=== PATIENT | male | born 1940 | race Caucasian/White ===

== ENCOUNTER → 2017-03-17 | Outpatient (REF) | payer OTHER ==
[2017-03-17 17:36] LABS: INR 1.07; PROTHROMBIN TIME 14.1 SECONDS (12.4-14.5)
== END ==
LOC: M LAB REF 16:43
DX: R91.8 Other nonspecific abnormal finding of lung field (principal); Z79.01 Long term (current) use of anticoagulants
CPT/HCPCS: 85610

== ENCOUNTER → 2017-04-02 | Outpatient (CLI) | payer OTHER ==
[~2017-04-02] MED LIST: LIDOCAINE 1% MDV 20ML VIAL As Ordered
== END ==
LOC: M RADPRO 09:03
DX: R91.8 Other nonspecific abnormal finding of lung field (principal); C34.90 Malignant neoplasm of unspecified part of unspecified bronchus or lung; Z98.1 Arthrodesis status; Z79.899 Other long term (current) drug therapy; Z79.82 Long term (current) use of aspirin
CPT/HCPCS: 32405

== ENCOUNTER → 2017-04-08 | Outpatient (CLI) | payer OTHER | LOC: M PLARAD 12:02 | DX: C34.12 Malignant neoplasm of upper lobe, left bronchus or lung (principal) | CPT/HCPCS: 78815 ==

== ENCOUNTER → 2017-05-05 | Outpatient (CLI) | payer OTHER ==
[2017-05-05 11:12] LABS: HEMATOCRIT 40.1 % (42.0-52.0); HEMOGLOBIN 13.4 g/dl (14.0-18.0); MEAN CORPUSCULAR HEMOGLOBIN 29.8 pg (27.0-33.0); MEAN CORPUSCULAR HGB CONC 33.4 g/dl (32.0-36.5); MEAN CORPUSCULAR VOLUME 89.3 fl (80.0-96.0); PLATELET COUNT, AUTOMATED 195 10^3/uL (150-450); RED BLOOD COUNT 4.49 10^6/uL (4.30-6.10); RED CELL DISTRIBUTION WIDTH 13.2 % (11.5-14.5); WHITE BLOOD COUNT 8.4 10^3/uL (4.0-10.0)
[2017-05-05 11:22] LABS: ABG BASE EXCESS 3.3 (-2.0-2.0); ABG DEVICE ROOM AIR; ABG HCO3 27.1 MEQ/L (22.0-26.0); ABG PARTIAL PRESSURE CO2 38.3 mmHg (35.0-45.0); ABG STANDARD HCO3 27.3 MEQ/L (22.0-26.0); ABG TOTAL CO2 28.2 MEQ/L (23.0-31.0); ABG pH (ARTERIAL) 7.467 UNITS (7.350-7.450); APPEARANCE, URINE CLEAR (CLEAR); BACTERIA, URINE AUTO NEGATIVE (NEGATIVE); BILIRUBIN, URINE AUTO NEGATIVE (NEGATIVE); BLOOD, URINE BLOOD NEGATIVE (NEGATIVE); COLOR, URINE YELLOW (YELLOW); GLUCOSE, URINE (UA) AUTO NEGATIVE (NEGATIVE); KETONE, URINE AUTO NEGATIVE (NEGATIVE); LEUKOCYTE ESTERASE, URINE AUTO NEGATIVE (NEGATIVE); NITRITE, URINE AUTO NEGATIVE (NEGATIVE); PROTEIN, URINE AUTO NEGATIVE (NEGATIVE); RBC, URINE AUTO 4 /HPF (0-3); SQUAMOUS EPITHELIAL CELL UR AU 0 /HPF (0-6); UROBILINOGEN, URINE AUTO 0.2 mg/dL (0.0-2.0); WBC, URINE AUTO 4 /HPF (0-3)
[2017-05-05 11:24] LABS: INR 0.94; PROTHROMBIN TIME 12.6 SECONDS (12.4-14.5)
[2017-05-05 11:25] LABS: PARTIAL THROMBOPLASTIN TIME 30.5 SECONDS (26.8-37.9)
[2017-05-05 11:37] LABS: ANION GAP 7 MEQ/L (8-16); BLOOD UREA NITROGEN 16 MG/DL (7-18); CALCIUM LEVEL 8.9 MG/DL (8.8-10.2); CARBON DIOXIDE LEVEL 32 MEQ/L (21-32); CHLORIDE LEVEL 97 MEQ/L (98-107); CREATININE FOR GFR 0.97 MG/DL (0.70-1.30); GLOMERULAR FILTRATION RATE > 60.0 (>42); GLUCOSE, FASTING 128 MG/DL (70-100); POTASSIUM SERUM 4.1 MEQ/L (3.5-5.1); SODIUM LEVEL 136 MEQ/L (136-145)
[2017-05-05 12:17] LABS: SPECIFIC GRAVITY URINE AUTO >1.060 (1.002-1.035)
== END ==
LOC: M ADMPAT 07:51
DX: C34.12 Malignant neoplasm of upper lobe, left bronchus or lung (principal); R91.8 Other nonspecific abnormal finding of lung field

== ENCOUNTER → 2017-05-05 | Outpatient (CLI) | payer OTHER ==
[~2017-05-05] MED LIST changes: +ISOVUE-370 76% 100ML VIAL (Q9967) As Ordered; -LIDOCAINE 1% MDV 20ML VIAL As Ordered
[2017-05-05 07:28] LABS: CREATININE FOR GFR 0.91 MG/DL (0.70-1.30); GLOMERULAR FILTRATION RATE > 60.0 (>42)
[2017-05-05 07:28] LABS: BLOOD UREA NITROGEN 17 MG/DL (7-18)
== END ==
LOC: M LAB 06:29
DX: C34.12 Malignant neoplasm of upper lobe, left bronchus or lung (principal); J43.1 Panlobular emphysema; E27.9 Disorder of adrenal gland, unspecified; R91.8 Other nonspecific abnormal finding of lung field
CPT/HCPCS: Q9967

== ENCOUNTER 2017-05-12 05:48 | Inpatient (IN) | payer OTHER ==
[2017-05-12] MEDS ORDERED: fentaNYL 100 MCG/2 ML INJECTION (J3010) As Ordered ×3 (06:43→12:33)
[2017-05-12] MEDS ORDERED: MIDAZOLAM INJ 2 MG/2 ML VIAL (J2250) As Ordered ×2 (06:43→06:58)
[2017-05-12] MEDS: LR 1,000 ML IV (06:44)
[2017-05-12] MEDS ORDERED: LIDOCAINE 2% INJ 100 MG/5 ML SDV (FOR ANES.) As Ordered (07:00)
[2017-05-12] MEDS ORDERED: PROPOFOL 200 MG/20 ML VIAL As Ordered (07:00)
[2017-05-12] MEDS ORDERED: ROCURONIUM BROMIDE 50 MG/5 ML VIAL As Ordered ×3 (07:01→11:01)
[2017-05-12] MEDS: fentaNYL 100 MCG/2 ML INJECTION (J3010) IV ×2 (07:13→14:01)
[2017-05-12] MEDS: MIDAZOLAM INJ 2 MG/2 ML VIAL (J2250) IV (07:45)
[2017-05-12] MEDS: CETACAINE SPRAY 5GM As Ordered (07:51)
[2017-05-12] MEDS: MUPIROCIN 2% OINT 22 GM TUBE TOP (07:54)
[2017-05-12] MEDS ORDERED: GLYCOPYRROLATE INJ 0.2 MG/ML 2 ML VIAL As Ordered (08:03)
[2017-05-12] MEDS ORDERED: HYDROCORTISONE 100 MG/2 ML VIAL (J1720) As Ordered (08:12)
[2017-05-12] MEDS ORDERED: BUPIVACAINE HCL 0.25% 30 ML VIAL As Ordered (08:32)
[2017-05-12] MEDS ORDERED: ePHEDrine SULFATE 25 MG/5 ML(5MG/ML) SYRINGE As Ordered ×4 (08:53→12:43)
[2017-05-12] MEDS ORDERED: PHENYLephrine HCL 500 MCG/5 ML (100MCG/ML) SYRINGE (J2370) As Ordered ×2 (08:53→12:48)
[2017-05-12] MEDS: MOM 30ML SUSPENSION UDC PO (09:00)
[2017-05-12] MEDS: predniSONE 20 MG TAB PO (09:00)
[2017-05-12] MEDS ORDERED: ONDANSETRON 4MG/2ML VIAL (J2405) As Ordered (09:01)
[2017-05-12] MEDS ORDERED: NALOXONE INJ 0.4 MG/1 ML VIAL (J2310) IV (10:00)
[2017-05-12] MEDS ORDERED: ONDANSETRON 4MG/2ML VIAL (J2405) IV ×2 (10:00→13:15)
[2017-05-12] MEDS: BUPIVACAINE/NACL BAG 250 ML EPIDURAL (10:00)
[2017-05-12] MEDS ORDERED: EPIDURAL/PCA KEYS XX (10:00)
[2017-05-12] MEDS ORDERED: diphenhydrAMINE INJ 50MG/ML VIAL (J1200) IV (10:00)
[2017-05-12] MEDS ORDERED: WALLBOXKEY XX (10:00)
[2017-05-12] MEDS ORDERED: SUGAMMADEX SODIUM 500 MG/5 ML VIAL (BRIDION) As Ordered (12:04)
[2017-05-12] MEDS ORDERED: KETOROLAC 60 MG/2 ML VIAL (J1885) As Ordered (12:25)
[2017-05-12] MEDS: BUPIVACAINE HCL 0.5% 10 ML VIAL As Ordered (12:41)
[2017-05-12] MEDS: BUPIVACAINE LIPOSOME/PF 1.3% 20 ML VIAL (13.3MG/ML)(EXPAREL) As Ordered (12:41)
[2017-05-12] MEDS: ceFAZolin 2 GM/D5W 50 ML IV BAG (J0690 PER 500MG) As Ordered (12:44)
[2017-05-12] MEDS ORDERED: BISACODYL 10 MG SUPP PR (13:15)
[2017-05-12] MEDS ORDERED: LEVALBUTEROL 1.25 MG/0.5 ML CONCENTRATE NEB NEB (13:15)
[2017-05-12] MEDS ORDERED: PERCOCET 5MG/325MG TAB PO (13:15)
[2017-05-12] MEDS ORDERED: ACETAMINOPHEN TAB 650MG DOSE (2X325MG) PO (13:15)
[2017-05-12] MEDS: LEVALBUTEROL 1.25 MG/0.5 ML CONCENTRATE NEB NEB ×2 (13:42→20:14)
[2017-05-12 13:48] LABS: BASO % 0.1 % (0.0-1.0); EOS % 0.2 % (0.0-3.0); HEMATOCRIT 33.5 % (42.0-52.0); HEMOGLOBIN 11.1 g/dl (14.0-18.0); IMMATURE GRANULOCYTE % 0.8 % (0-3.0); LYMPH # 0.9 10^3/uL (1.5-4.5); LYMPH % 5.8 % (24.0-44.0); MEAN CORPUSCULAR HEMOGLOBIN 29.9 pg (27.0-33.0); MEAN CORPUSCULAR HGB CONC 33.1 g/dl (32.0-36.5); MEAN CORPUSCULAR VOLUME 90.3 fl (80.0-96.0); MONO # 0.8 10^3/uL (0.0-0.8); NEUTROPHILS # 13.1 10^3/uL (1.8-7.7); NEUTROPHILS % 88.1 % (36.0-66.0); PLATELET COUNT, AUTOMATED 200 10^3/uL (150-450); RED BLOOD COUNT 3.71 10^6/uL (4.30-6.10); RED CELL DISTRIBUTION WIDTH 13.2 % (11.5-14.5); WHITE BLOOD COUNT 14.9 10^3/uL (4.0-10.0)
[2017-05-12 13:50] LABS: ABG BASE EXCESS 0.4 (-2.0-2.0); ABG HCO3 26.3 MEQ/L (22.0-26.0); ABG O2 SATURATION 98.4 % (95.0-99.0); ABG PARTIAL PRESSURE CO2 47.1 mmHg (35.0-45.0); ABG PARTIAL PRESSURE O2 125.3 mmHg (75.0-100.0); ABG STANDARD HCO3 24.9 MEQ/L (22.0-26.0); ABG TOTAL CO2 27.7 MEQ/L (23.0-31.0); ABG pH (ARTERIAL) 7.364 UNITS (7.350-7.450)
[2017-05-12] MEDS: ONDANSETRON 4MG/2ML VIAL (J2405) IV (14:01)
[2017-05-12 14:19] LABS: ANION GAP 9 MEQ/L (8-16); BLOOD UREA NITROGEN 13 MG/DL (7-18); CALCIUM LEVEL 7.9 MG/DL (8.8-10.2); CARBON DIOXIDE LEVEL 26 MEQ/L (21-32); CHLORIDE LEVEL 103 MEQ/L (98-107); CREATININE FOR GFR 1.03 MG/DL (0.70-1.30); GLOMERULAR FILTRATION RATE > 60.0 (>42); GLUCOSE, FASTING 258 MG/DL (70-100); POTASSIUM SERUM 4.3 MEQ/L (3.5-5.1); SODIUM LEVEL 138 MEQ/L (136-145)
[2017-05-12] MEDS: KCL 20MEQ IN D5/NS 1000ML 1,000 ML IV (15:00)
[2017-05-12] MEDS: CEFAZOLIN SOD 1 GM in APPROPRIATE DILUENT 1 EA IV (16:46)
[2017-05-12] MEDS: PYRIDOSTIGMINE 60 MG TAB PO ×2 (17:56→21:07)
[2017-05-12] MEDS: KETOROLAC 30 MG/ML VIAL (J1885) IV (18:11)
[2017-05-12] MEDS ORDERED: predniSONE 20 MG TAB PO (21:00)
[2017-05-12] MEDS ORDERED: PYRIDOSTIGMINE 60 MG TAB PO (21:00)
[2017-05-12] MEDS: DOCUSATE SODIUM 100 MG CAP PO (21:06)
[2017-05-12] MEDS: HEPARIN SOD (PORCINE) 5000 UNITS/ML VIAL SC (21:08)
[2017-05-12] MEDS: IRBESARTAN 150 MG TAB PO (21:08)
[2017-05-13] MEDS: CEFAZOLIN SOD 1 GM in APPROPRIATE DILUENT 1 EA IV ×4 (00:52→23:38)
[2017-05-13] MEDS: KETOROLAC 30 MG/ML VIAL (J1885) IV ×4 (00:53→18:36)
[2017-05-13] MEDS: LEVALBUTEROL 1.25 MG/0.5 ML CONCENTRATE NEB NEB ×4 (01:13→20:02)
[2017-05-13] MEDS: KCL 20MEQ IN D5/NS 1000ML 1,000 ML IV (03:16)
[2017-05-13 06:04] LABS: ABG BASE EXCESS 0.7 (-2.0-2.0); ABG HCO3 24.5 MEQ/L (22.0-26.0); ABG O2 SATURATION 98.9 % (95.0-99.0); ABG PARTIAL PRESSURE CO2 36.5 mmHg (35.0-45.0); ABG PARTIAL PRESSURE O2 135.3 mmHg (75.0-100.0); ABG STANDARD HCO3 25.1 MEQ/L (22.0-26.0); ABG TOTAL CO2 25.6 MEQ/L (23.0-31.0); ABG pH (ARTERIAL) 7.445 UNITS (7.350-7.450)
[2017-05-13 06:14] LABS: BASO % 0.1 % (0.0-1.0); EOS # 0.1 10^3/uL (0.0-0.50); EOS % 0.5 % (0.0-3.0); HEMATOCRIT 31.6 % (42.0-52.0); HEMOGLOBIN 10.6 g/dl (14.0-18.0); IMMATURE GRANULOCYTE % 1.2 % (0-3.0); LYMPH # 1.2 10^3/uL (1.5-4.5); LYMPH % 10.9 % (24.0-44.0); MEAN CORPUSCULAR HEMOGLOBIN 30.5 pg (27.0-33.0); MEAN CORPUSCULAR HGB CONC 33.5 g/dl (32.0-36.5); MEAN CORPUSCULAR VOLUME 91.1 fl (80.0-96.0); MONO # 0.9 10^3/uL (0.0-0.8); MONO % 8.4 % (0.0-5.0); NEUTROPHILS # 8.5 10^3/uL (1.8-7.7); NEUTROPHILS % 78.9 % (36.0-66.0); PLATELET COUNT, AUTOMATED 202 10^3/uL (150-450); RED BLOOD COUNT 3.47 10^6/uL (4.30-6.10); RED CELL DISTRIBUTION WIDTH 13.9 % (11.5-14.5); WHITE BLOOD COUNT 10.7 10^3/uL (4.0-10.0)
[2017-05-13 06:35] LABS: ANION GAP 11 MEQ/L (8-16); BLOOD UREA NITROGEN 12 MG/DL (7-18); CALCIUM LEVEL 7.7 MG/DL (8.8-10.2); CARBON DIOXIDE LEVEL 26 MEQ/L (21-32); CHLORIDE LEVEL 104 MEQ/L (98-107); CREATININE FOR GFR 0.95 MG/DL (0.70-1.30); GLOMERULAR FILTRATION RATE > 60.0 (>42); GLUCOSE, FASTING 199 MG/DL (70-100); POTASSIUM SERUM 4.4 MEQ/L (3.5-5.1); SODIUM LEVEL 141 MEQ/L (136-145)
[2017-05-13] MEDS: MOM 30ML SUSPENSION UDC PO (08:11)
[2017-05-13] MEDS: PYRIDOSTIGMINE 60 MG TAB PO ×4 (08:11→21:30)
[2017-05-13] MEDS: TERAZOSIN 5 MG CAP PO (08:11)
[2017-05-13] MEDS: predniSONE 20 MG TAB PO (08:12)
[2017-05-13] MEDS: VITAMIN D 1,000 INTERNATIONAL UNITS TABLET PO (08:12)
[2017-05-13] MEDS: FAMOTIDINE 20 MG TAB PO (08:12)
[2017-05-13] MEDS: DOCUSATE SODIUM 100 MG CAP PO ×2 (08:12→21:30)
[2017-05-13] MEDS: ASPIRIN 81 MG ENTERIC TAB PO (08:12)
[2017-05-13] MEDS: ATENOLOL 25 MG TAB PO (08:13)
[2017-05-13] MEDS: HEPARIN SOD (PORCINE) 5000 UNITS/ML VIAL SC ×2 (08:14→21:30)
[2017-05-13] MEDS: BUPIVACAINE/NACL BAG 250 ML EPIDURAL (12:00)
[2017-05-13] MEDS: IRBESARTAN 150 MG TAB PO (21:30)
[2017-05-14] MEDS: KETOROLAC 30 MG/ML VIAL (J1885) IV ×4 (00:38→18:25)
[2017-05-14] MEDS: LEVALBUTEROL 1.25 MG/0.5 ML CONCENTRATE NEB NEB ×4 (01:52→19:52)
[2017-05-14 04:55] LABS: BASO % 0.1 % (0.0-1.0); EOS # 0.1 10^3/uL (0.0-0.50); EOS % 0.4 % (0.0-3.0); HEMATOCRIT 30.8 % (42.0-52.0); HEMOGLOBIN 10.1 g/dl (14.0-18.0); IMMATURE GRANULOCYTE % 1.1 % (0-3.0); LYMPH # 1.2 10^3/uL (1.5-4.5); LYMPH % 10.4 % (24.0-44.0); MEAN CORPUSCULAR HEMOGLOBIN 29.7 pg (27.0-33.0); MEAN CORPUSCULAR HGB CONC 32.8 g/dl (32.0-36.5); MEAN CORPUSCULAR VOLUME 90.6 fl (80.0-96.0); MONO # 0.9 10^3/uL (0.0-0.8); MONO % 7.8 % (0.0-5.0); NEUTROPHILS # 9.4 10^3/uL (1.8-7.7); NEUTROPHILS % 80.2 % (36.0-66.0); PLATELET COUNT, AUTOMATED 201 10^3/uL (150-450); RED CELL DISTRIBUTION WIDTH 13.7 % (11.5-14.5); WHITE BLOOD COUNT 11.8 10^3/uL (4.0-10.0)
[2017-05-14 05:19] LABS: ANION GAP 6 MEQ/L (8-16); BLOOD UREA NITROGEN 17 MG/DL (7-18); CALCIUM LEVEL 7.9 MG/DL (8.8-10.2); CARBON DIOXIDE LEVEL 29 MEQ/L (21-32); CHLORIDE LEVEL 107 MEQ/L (98-107); CREATININE FOR GFR 0.81 MG/DL (0.70-1.30); GLOMERULAR FILTRATION RATE > 60.0 (>42); GLUCOSE, FASTING 169 MG/DL (70-100); POTASSIUM SERUM 3.9 MEQ/L (3.5-5.1); SODIUM LEVEL 142 MEQ/L (136-145)
[2017-05-14] MEDS: CEFAZOLIN SOD 1 GM in APPROPRIATE DILUENT 1 EA IV (07:27)
[2017-05-14] MEDS: MOM 30ML SUSPENSION UDC PO (08:08)
[2017-05-14] MEDS: FAMOTIDINE 20 MG TAB PO (08:08)
[2017-05-14] MEDS: HEPARIN SOD (PORCINE) 5000 UNITS/ML VIAL SC ×2 (08:08→20:18)
[2017-05-14] MEDS: ASPIRIN 81 MG ENTERIC TAB PO (08:08)
[2017-05-14] MEDS: PYRIDOSTIGMINE 60 MG TAB PO ×4 (08:08→20:17)
[2017-05-14] MEDS: predniSONE 20 MG TAB PO (08:08)
[2017-05-14] MEDS: VITAMIN D 1,000 INTERNATIONAL UNITS TABLET PO (08:09)
[2017-05-14] MEDS: ATENOLOL 25 MG TAB PO (08:09)
[2017-05-14] MEDS: DOCUSATE SODIUM 100 MG CAP PO ×2 (08:09→20:17)
[2017-05-14] MEDS: TERAZOSIN 5 MG CAP PO (09:00)
[2017-05-14] MEDS: BUPIVACAINE/NACL BAG 250 ML EPIDURAL (12:00)
[2017-05-14] MEDS: PNEUMOCOCCAL VACCINE 0.5ML SYRINGE(90732) PNEUMOVAX 23 IM (16:41)
[2017-05-14] MEDS: IRBESARTAN 150 MG TAB PO (20:17)
[2017-05-15] MEDS: KETOROLAC 30 MG/ML VIAL (J1885) IV ×4 (00:24→18:28)
[2017-05-15] MEDS: LEVALBUTEROL 1.25 MG/0.5 ML CONCENTRATE NEB NEB ×4 (02:12→20:25)
[2017-05-15 04:49] LABS: BASO % 0.2 % (0.0-1.0); EOS # 0.2 10^3/uL (0.0-0.50); EOS % 1.7 % (0.0-3.0); HEMATOCRIT 29.9 % (42.0-52.0); HEMOGLOBIN 9.9 g/dl (14.0-18.0); IMMATURE GRANULOCYTE % 0.9 % (0-3.0); LYMPH # 2.1 10^3/uL (1.5-4.5); LYMPH % 18.8 % (24.0-44.0); MEAN CORPUSCULAR HEMOGLOBIN 30.5 pg (27.0-33.0); MEAN CORPUSCULAR HGB CONC 33.1 g/dl (32.0-36.5); MONO # 0.9 10^3/uL (0.0-0.8); MONO % 7.8 % (0.0-5.0); NEUTROPHILS # 7.9 10^3/uL (1.8-7.7); NEUTROPHILS % 70.6 % (36.0-66.0); PLATELET COUNT, AUTOMATED 184 10^3/uL (150-450); RED BLOOD COUNT 3.25 10^6/uL (4.30-6.10); RED CELL DISTRIBUTION WIDTH 13.4 % (11.5-14.5); WHITE BLOOD COUNT 11.2 10^3/uL (4.0-10.0)
[2017-05-15 05:10] LABS: ANION GAP 3 MEQ/L (8-16); BLOOD UREA NITROGEN 20 MG/DL (7-18); CALCIUM LEVEL 8.1 MG/DL (8.8-10.2); CARBON DIOXIDE LEVEL 31 MEQ/L (21-32); CHLORIDE LEVEL 106 MEQ/L (98-107); CREATININE FOR GFR 0.94 MG/DL (0.70-1.30); GLOMERULAR FILTRATION RATE > 60.0 (>42); GLUCOSE, FASTING 134 MG/DL (70-100); POTASSIUM SERUM 4.8 MEQ/L (3.5-5.1); SODIUM LEVEL 140 MEQ/L (136-145)
[2017-05-15] MEDS: ASPIRIN 81 MG ENTERIC TAB PO (09:30)
[2017-05-15] MEDS: FUROSEMIDE 40 MG/4 ML VIAL (J1940) IV (09:30)
[2017-05-15] MEDS: predniSONE 20 MG TAB PO (09:30)
[2017-05-15] MEDS: HEPARIN SOD (PORCINE) 5000 UNITS/ML VIAL SC ×2 (09:30→22:22)
[2017-05-15] MEDS: PYRIDOSTIGMINE 60 MG TAB PO ×4 (09:30→22:22)
[2017-05-15] MEDS: FAMOTIDINE 20 MG TAB PO (09:30)
[2017-05-15] MEDS: VITAMIN D 1,000 INTERNATIONAL UNITS TABLET PO (09:31)
[2017-05-15] MEDS: TERAZOSIN 5 MG CAP PO (09:31)
[2017-05-15] MEDS: ATENOLOL 25 MG TAB PO (09:31)
[2017-05-15] MEDS: MOM 30ML SUSPENSION UDC PO (09:40)
[2017-05-15] MEDS: DOCUSATE SODIUM 100 MG CAP PO ×2 (09:40→22:20)
[2017-05-15] MEDS: BUPIVACAINE/NACL BAG 250 ML EPIDURAL (12:01)
[2017-05-15] MEDS: IRBESARTAN 150 MG TAB PO (22:22)
[2017-05-16] MEDS: KETOROLAC 30 MG/ML VIAL (J1885) IV ×4 (00:08→18:34)
[2017-05-16] MEDS: LEVALBUTEROL 1.25 MG/0.5 ML CONCENTRATE NEB NEB ×4 (02:22→18:12)
[2017-05-16 04:33] LABS: BASO % 0.2 % (0.0-1.0); EOS # 0.2 10^3/uL (0.0-0.50); EOS % 1.5 % (0.0-3.0); HEMATOCRIT 32.1 % (42.0-52.0); HEMOGLOBIN 10.6 g/dl (14.0-18.0); IMMATURE GRANULOCYTE % 1.4 % (0-3.0); LYMPH # 0.9 10^3/uL (1.5-4.5); LYMPH % 9.1 % (24.0-44.0); MEAN CORPUSCULAR HEMOGLOBIN 29.8 pg (27.0-33.0); MEAN CORPUSCULAR VOLUME 90.2 fl (80.0-96.0); MONO # 0.8 10^3/uL (0.0-0.8); MONO % 7.5 % (0.0-5.0); NEUTROPHILS # 8.3 10^3/uL (1.8-7.7); NEUTROPHILS % 80.3 % (36.0-66.0); PLATELET COUNT, AUTOMATED 228 10^3/uL (150-450); RED BLOOD COUNT 3.56 10^6/uL (4.30-6.10); RED CELL DISTRIBUTION WIDTH 13.5 % (11.5-14.5); WHITE BLOOD COUNT 10.4 10^3/uL (4.0-10.0)
[2017-05-16 04:57] LABS: ANION GAP 7 MEQ/L (8-16); BLOOD UREA NITROGEN 26 MG/DL (7-18); CALCIUM LEVEL 8.2 MG/DL (8.8-10.2); CARBON DIOXIDE LEVEL 29 MEQ/L (21-32); CHLORIDE LEVEL 104 MEQ/L (98-107); CREATININE FOR GFR 0.94 MG/DL (0.70-1.30); GLOMERULAR FILTRATION RATE > 60.0 (>42); GLUCOSE, FASTING 168 MG/DL (70-100); POTASSIUM SERUM 3.9 MEQ/L (3.5-5.1); SODIUM LEVEL 140 MEQ/L (136-145)
[2017-05-16] MEDS: DOCUSATE SODIUM 100 MG CAP PO ×2 (08:44→19:55)
[2017-05-16] MEDS: MOM 30ML SUSPENSION UDC PO (08:44)
[2017-05-16] MEDS: predniSONE 20 MG TAB PO (08:53)
[2017-05-16] MEDS: FAMOTIDINE 20 MG TAB PO (08:53)
[2017-05-16] MEDS: ASPIRIN 81 MG ENTERIC TAB PO (08:53)
[2017-05-16] MEDS: ATENOLOL 25 MG TAB PO (08:53)
[2017-05-16] MEDS: VITAMIN D 1,000 INTERNATIONAL UNITS TABLET PO (08:53)
[2017-05-16] MEDS: HEPARIN SOD (PORCINE) 5000 UNITS/ML VIAL SC ×2 (08:53→19:56)
[2017-05-16] MEDS: PYRIDOSTIGMINE 60 MG TAB PO ×4 (08:53→19:55)
[2017-05-16] MEDS: TERAZOSIN 5 MG CAP PO (08:54)
[2017-05-16] MEDS: METOCLOPRAMIDE INJ 10MG/2ML VIAL (J2765) IV (09:14)
[2017-05-16] MEDS: BUPIVACAINE/NACL BAG 250 ML EPIDURAL (11:38)
[2017-05-16] MEDS: FUROSEMIDE 40 MG/4 ML VIAL (J1940) IV (11:41)
[2017-05-16] MEDS: IRBESARTAN 150 MG TAB PO ×2 (19:56→20:00)
[2017-05-17] MEDS: LEVALBUTEROL 1.25 MG/0.5 ML CONCENTRATE NEB NEB ×4 (02:00→18:21)
[2017-05-17] MEDS: KETOROLAC 30 MG/ML VIAL (J1885) IV ×3 (02:13→14:07)
[2017-05-17 04:35] LABS: BASO % 0.1 % (0.0-1.0); EOS # 0.1 10^3/uL (0.0-0.50); EOS % 1.3 % (0.0-3.0); HEMATOCRIT 32.9 % (42.0-52.0); HEMOGLOBIN 10.9 g/dl (14.0-18.0); IMMATURE GRANULOCYTE % 1.4 % (0-3.0); LYMPH # 1.2 10^3/uL (1.5-4.5); LYMPH % 11.9 % (24.0-44.0); MEAN CORPUSCULAR HEMOGLOBIN 29.5 pg (27.0-33.0); MEAN CORPUSCULAR HGB CONC 33.1 g/dl (32.0-36.5); MEAN CORPUSCULAR VOLUME 89.2 fl (80.0-96.0); MONO % 9.9 % (0.0-5.0); NEUTROPHILS # 7.3 10^3/uL (1.8-7.7); NEUTROPHILS % 75.4 % (36.0-66.0); PLATELET COUNT, AUTOMATED 249 10^3/uL (150-450); RED BLOOD COUNT 3.69 10^6/uL (4.30-6.10); RED CELL DISTRIBUTION WIDTH 13.5 % (11.5-14.5); WHITE BLOOD COUNT 9.7 10^3/uL (4.0-10.0)
[2017-05-17 04:58] LABS: ANION GAP 6 MEQ/L (8-16); BLOOD UREA NITROGEN 30 MG/DL (7-18); CARBON DIOXIDE LEVEL 28 MEQ/L (21-32); CHLORIDE LEVEL 104 MEQ/L (98-107); GLOMERULAR FILTRATION RATE > 60.0 (>42); GLUCOSE, FASTING 115 MG/DL (70-100); POTASSIUM SERUM 4.1 MEQ/L (3.5-5.1); SODIUM LEVEL 138 MEQ/L (136-145)
[2017-05-17 04:59] LABS: CALCIUM LEVEL 8.1 MG/DL (8.8-10.2)
[2017-05-17] MEDS: DOCUSATE SODIUM 100 MG CAP PO ×2 (09:00→20:52)
[2017-05-17] MEDS: MOM 30ML SUSPENSION UDC PO (09:00)
[2017-05-17] MEDS: HEPARIN SOD (PORCINE) 5000 UNITS/ML VIAL SC ×2 (10:11→20:53)
[2017-05-17] MEDS: ATENOLOL 25 MG TAB PO (10:12)
[2017-05-17] MEDS: ASPIRIN 81 MG ENTERIC TAB PO (10:12)
[2017-05-17] MEDS: FAMOTIDINE 20 MG TAB PO (10:12)
[2017-05-17] MEDS: predniSONE 20 MG TAB PO (10:12)
[2017-05-17] MEDS: TERAZOSIN 5 MG CAP PO (10:12)
[2017-05-17] MEDS: VITAMIN D 1,000 INTERNATIONAL UNITS TABLET PO (10:12)
[2017-05-17] MEDS: PYRIDOSTIGMINE 60 MG TAB PO ×4 (10:13→20:53)
[2017-05-17] MEDS: BUPIVACAINE/NACL BAG 250 ML EPIDURAL (12:25)
[2017-05-17] MEDS: METHOTREXATE 2.5 MG PO (16:26)
[2017-05-17] MEDS: IRBESARTAN 150 MG TAB PO (20:52)
[2017-05-18] MEDS: LEVALBUTEROL 1.25 MG/0.5 ML CONCENTRATE NEB NEB ×4 (02:00→19:31)
[2017-05-18 03:58] LABS: BASO % 0.1 % (0.0-1.0); EOS # 0.1 10^3/uL (0.0-0.50); EOS % 0.9 % (0.0-3.0); HEMATOCRIT 31.4 % (42.0-52.0); HEMOGLOBIN 10.5 g/dl (14.0-18.0); IMMATURE GRANULOCYTE % 1.7 % (0-3.0); LYMPH # 1.5 10^3/uL (1.5-4.5); LYMPH % 12.8 % (24.0-44.0); MEAN CORPUSCULAR HEMOGLOBIN 29.9 pg (27.0-33.0); MEAN CORPUSCULAR HGB CONC 33.4 g/dl (32.0-36.5); MEAN CORPUSCULAR VOLUME 89.5 fl (80.0-96.0); MONO % 8.7 % (0.0-5.0); NEUTROPHILS # 8.9 10^3/uL (1.8-7.7); NEUTROPHILS % 75.8 % (36.0-66.0); PLATELET COUNT, AUTOMATED 260 10^3/uL (150-450); RED BLOOD COUNT 3.51 10^6/uL (4.30-6.10); RED CELL DISTRIBUTION WIDTH 13.5 % (11.5-14.5); WHITE BLOOD COUNT 11.7 10^3/uL (4.0-10.0)
[2017-05-18 04:23] LABS: ANION GAP 7 MEQ/L (8-16); BLOOD UREA NITROGEN 24 MG/DL (7-18); CALCIUM LEVEL 8.1 MG/DL (8.8-10.2); CARBON DIOXIDE LEVEL 26 MEQ/L (21-32); CHLORIDE LEVEL 107 MEQ/L (98-107); CREATININE FOR GFR 0.78 MG/DL (0.70-1.30); GLOMERULAR FILTRATION RATE > 60.0 (>42); GLUCOSE, FASTING 142 MG/DL (70-100); POTASSIUM SERUM 4.3 MEQ/L (3.5-5.1); SODIUM LEVEL 140 MEQ/L (136-145)
[2017-05-18] MEDS: HEPARIN SOD (PORCINE) 5000 UNITS/ML VIAL SC ×2 (08:48→21:35)
[2017-05-18] MEDS: ATENOLOL 25 MG TAB PO (08:49)
[2017-05-18] MEDS: ASPIRIN 81 MG ENTERIC TAB PO (08:49)
[2017-05-18] MEDS: PYRIDOSTIGMINE 60 MG TAB PO ×4 (08:49→21:34)
[2017-05-18] MEDS: TERAZOSIN 5 MG CAP PO (08:50)
[2017-05-18] MEDS: FAMOTIDINE 20 MG TAB PO (08:50)
[2017-05-18] MEDS: DOCUSATE SODIUM 100 MG CAP PO ×2 (08:50→21:00)
[2017-05-18] MEDS: VITAMIN D 1,000 INTERNATIONAL UNITS TABLET PO (08:50)
[2017-05-18] MEDS: predniSONE 20 MG TAB PO (08:50)
[2017-05-18] MEDS: MOM 30ML SUSPENSION UDC PO (08:50)
[2017-05-18] MEDS ORDERED: BUPIVACAINE/NACL BAG 250 ML EPIDURAL (12:25)
[2017-05-18] MEDS: IRBESARTAN 150 MG TAB PO (21:37)
[2017-05-18] MEDS: NORCO, ANEXSIA 5/325MG TABLET (HYDROcodone/ACETAMINOPHEN) PO (22:05)
[2017-05-19] MEDS: LEVALBUTEROL 1.25 MG/0.5 ML CONCENTRATE NEB NEB ×4 (02:00→20:31)
[2017-05-19] MEDS: NORCO, ANEXSIA 5/325MG TABLET (HYDROcodone/ACETAMINOPHEN) PO ×3 (02:24→20:35)
[2017-05-19 07:01] LABS: BASO % 0.2 % (0.0-1.0); EOS # 0.3 10^3/uL (0.0-0.50); EOS % 2.2 % (0.0-3.0); HEMATOCRIT 32.7 % (42.0-52.0); HEMOGLOBIN 10.9 g/dl (14.0-18.0); IMMATURE GRANULOCYTE % 2.3 % (0-3.0); LYMPH # 2.3 10^3/uL (1.5-4.5); MEAN CORPUSCULAR HEMOGLOBIN 29.9 pg (27.0-33.0); MEAN CORPUSCULAR HGB CONC 33.3 g/dl (32.0-36.5); MEAN CORPUSCULAR VOLUME 89.6 fl (80.0-96.0); MONO % 7.9 % (0.0-5.0); NEUTROPHILS # 8.3 10^3/uL (1.8-7.7); NEUTROPHILS % 68.4 % (36.0-66.0); PLATELET COUNT, AUTOMATED 270 10^3/uL (150-450); RED BLOOD COUNT 3.65 10^6/uL (4.30-6.10); RED CELL DISTRIBUTION WIDTH 13.7 % (11.5-14.5); WHITE BLOOD COUNT 12.1 10^3/uL (4.0-10.0)
[2017-05-19 07:24] LABS: ANION GAP 6 MEQ/L (8-16); BLOOD UREA NITROGEN 20 MG/DL (7-18); CALCIUM LEVEL 8.4 MG/DL (8.8-10.2); CARBON DIOXIDE LEVEL 28 MEQ/L (21-32); CHLORIDE LEVEL 105 MEQ/L (98-107); CREATININE FOR GFR 0.78 MG/DL (0.70-1.30); GLOMERULAR FILTRATION RATE > 60.0 (>42); GLUCOSE, FASTING 108 MG/DL (70-100); SODIUM LEVEL 139 MEQ/L (136-145)
[2017-05-19] MEDS: MOM 30ML SUSPENSION UDC PO (09:00)
[2017-05-19] MEDS: DOCUSATE SODIUM 100 MG CAP PO ×2 (09:00→20:35)
[2017-05-19] MEDS: PYRIDOSTIGMINE 60 MG TAB PO ×4 (09:12→20:34)
[2017-05-19] MEDS: VITAMIN D 1,000 INTERNATIONAL UNITS TABLET PO (09:12)
[2017-05-19] MEDS: predniSONE 20 MG TAB PO (09:12)
[2017-05-19] MEDS: TERAZOSIN 5 MG CAP PO (09:12)
[2017-05-19] MEDS: FAMOTIDINE 20 MG TAB PO (09:13)
[2017-05-19] MEDS: ASPIRIN 81 MG ENTERIC TAB PO (09:13)
[2017-05-19] MEDS: ATENOLOL 25 MG TAB PO (09:14)
[2017-05-19] MEDS: HEPARIN SOD (PORCINE) 5000 UNITS/ML VIAL SC ×2 (09:14→20:38)
[2017-05-19] MEDS: SODIUM CHLORIDE 0.9% INJ 10 ML SYR IV ×3 (14:40→21:48)
[2017-05-19] MEDS: IRBESARTAN 150 MG TAB PO (20:37)
[2017-05-19 22:34] LABS: ANION GAP 8 MEQ/L (8-16); BLOOD UREA NITROGEN 21 MG/DL (7-18); CARBON DIOXIDE LEVEL 27 MEQ/L (21-32); CHLORIDE LEVEL 104 MEQ/L (98-107); CREATININE FOR GFR 0.88 MG/DL (0.70-1.30); GLOMERULAR FILTRATION RATE > 60.0 (>42); GLUCOSE, FASTING 185 MG/DL (70-100); MAGNESIUM LEVEL 1.9 MG/DL (1.8-2.4); POTASSIUM SERUM 4.5 MEQ/L (3.5-5.1); SODIUM LEVEL 139 MEQ/L (136-145)
[2017-05-20] MEDS: LEVALBUTEROL 1.25 MG/0.5 ML CONCENTRATE NEB NEB ×4 (02:00→21:47)
[2017-05-20] MEDS: NORCO, ANEXSIA 5/325MG TABLET (HYDROcodone/ACETAMINOPHEN) PO ×2 (04:09→12:39)
[2017-05-20] MEDS: SODIUM CHLORIDE 0.9% INJ 10 ML SYR IV (06:23)
[2017-05-20 06:33] LABS: HEMATOCRIT 30.6 % (42.0-52.0); HEMOGLOBIN 10.1 g/dl (14.0-18.0); MEAN CORPUSCULAR VOLUME 90.8 fl (80.0-96.0); PLATELET COUNT, AUTOMATED 246 10^3/uL (150-450); RED BLOOD COUNT 3.37 10^6/uL (4.30-6.10); RED CELL DISTRIBUTION WIDTH 13.5 % (11.5-14.5); WHITE BLOOD COUNT 10.9 10^3/uL (4.0-10.0)
[2017-05-20 06:52] LABS: ANION GAP 4 MEQ/L (8-16); BLOOD UREA NITROGEN 17 MG/DL (7-18); CALCIUM LEVEL 8.1 MG/DL (8.8-10.2); CARBON DIOXIDE LEVEL 30 MEQ/L (21-32); CHLORIDE LEVEL 105 MEQ/L (98-107); CREATININE FOR GFR 0.73 MG/DL (0.70-1.30); GLOMERULAR FILTRATION RATE > 60.0 (>42); GLUCOSE, FASTING 125 MG/DL (70-100); SODIUM LEVEL 139 MEQ/L (136-145)
[2017-05-20] MEDS: PERCOCET 5MG/325MG TAB PO (08:30)
[2017-05-20] MEDS: HEPARIN SOD (PORCINE) 5000 UNITS/ML VIAL SC ×2 (09:50→21:03)
[2017-05-20] MEDS: MOM 30ML SUSPENSION UDC PO ×2 (09:50→09:54)
[2017-05-20] MEDS: ATENOLOL 25 MG TAB PO (09:51)
[2017-05-20] MEDS: VITAMIN D 1,000 INTERNATIONAL UNITS TABLET PO (09:51)
[2017-05-20] MEDS: ASPIRIN 81 MG ENTERIC TAB PO (09:51)
[2017-05-20] MEDS: predniSONE 20 MG TAB PO (09:51)
[2017-05-20] MEDS: DOCUSATE SODIUM 100 MG CAP PO ×3 (09:51→20:57)
[2017-05-20] MEDS: PYRIDOSTIGMINE 60 MG TAB PO ×4 (09:51→21:02)
[2017-05-20] MEDS: FAMOTIDINE 20 MG TAB PO (09:51)
[2017-05-20] MEDS: TERAZOSIN 5 MG CAP PO (09:52)
[2017-05-20] MEDS ORDERED: SLF 3 ML SYR IV (13:30)
[2017-05-20] MEDS: SLF 3 ML SYR IV ×2 (13:47→21:03)
[2017-05-20] MEDS: IRBESARTAN 150 MG TAB PO (20:56)
[2017-05-21] MEDS: LEVALBUTEROL 1.25 MG/0.5 ML CONCENTRATE NEB NEB ×3 (02:00→14:00)
[2017-05-21] MEDS: NORCO, ANEXSIA 5/325MG TABLET (HYDROcodone/ACETAMINOPHEN) PO (02:15)
[2017-05-21] MEDS: SLF 3 ML SYR IV ×2 (05:50→13:30)
[2017-05-21 06:57] LABS: BASO % 0.1 % (0.0-1.0); EOS # 0.2 10^3/uL (0.0-0.50); EOS % 1.8 % (0.0-3.0); HEMATOCRIT 30.2 % (42.0-52.0); HEMOGLOBIN 10.2 g/dl (14.0-18.0); IMMATURE GRANULOCYTE % 4.1 % (0-3.0); LYMPH # 2.2 10^3/uL (1.5-4.5); LYMPH % 20.6 % (24.0-44.0); MEAN CORPUSCULAR HEMOGLOBIN 30.1 pg (27.0-33.0); MEAN CORPUSCULAR HGB CONC 33.8 g/dl (32.0-36.5); MEAN CORPUSCULAR VOLUME 89.1 fl (80.0-96.0); MONO # 0.9 10^3/uL (0.0-0.8); NEUTROPHILS # 7.1 10^3/uL (1.8-7.7); NEUTROPHILS % 65.4 % (36.0-66.0); PLATELET COUNT, AUTOMATED 269 10^3/uL (150-450); RED BLOOD COUNT 3.39 10^6/uL (4.30-6.10); RED CELL DISTRIBUTION WIDTH 13.4 % (11.5-14.5); WHITE BLOOD COUNT 10.9 10^3/uL (4.0-10.0)
[2017-05-21 07:20] LABS: ANION GAP 7 MEQ/L (8-16); BLOOD UREA NITROGEN 14 MG/DL (7-18); CALCIUM LEVEL 8.2 MG/DL (8.8-10.2); CARBON DIOXIDE LEVEL 27 MEQ/L (21-32); CHLORIDE LEVEL 105 MEQ/L (98-107); CREATININE FOR GFR 0.82 MG/DL (0.70-1.30); GLOMERULAR FILTRATION RATE > 60.0 (>42); GLUCOSE, FASTING 156 MG/DL (70-100); POTASSIUM SERUM 3.6 MEQ/L (3.5-5.1); SODIUM LEVEL 139 MEQ/L (136-145)
[2017-05-21] MEDS: DOCUSATE SODIUM 100 MG CAP PO (08:20)
[2017-05-21] MEDS: MOM 30ML SUSPENSION UDC PO (08:21)
[2017-05-21] MEDS: VITAMIN D 1,000 INTERNATIONAL UNITS TABLET PO (09:14)
[2017-05-21] MEDS: HEPARIN SOD (PORCINE) 5000 UNITS/ML VIAL SC (09:14)
[2017-05-21] MEDS: PYRIDOSTIGMINE 60 MG TAB PO ×3 (09:15→16:57)
[2017-05-21] MEDS: ASPIRIN 81 MG ENTERIC TAB PO (09:15)
[2017-05-21] MEDS: TERAZOSIN 5 MG CAP PO (09:15)
[2017-05-21] MEDS: predniSONE 20 MG TAB PO (09:15)
[2017-05-21] MEDS: ATENOLOL 25 MG TAB PO (09:15)
[2017-05-21] MEDS: FAMOTIDINE 20 MG TAB PO (09:15)
== END 2017-05-21 19:20 | disposition home or self-care (01) | DRG 163 ==
LOC: M OR 05:48 → M PCU 05-17 11:11 → M ICU 14:27
PROC: 0BTG0ZZ Resection of Left Upper Lung Lobe, Open Approach (ICD-10-PCS; principal; 2017-05-12 07:30)
PROC: 0BNG0ZZ Release Left Upper Lung Lobe, Open Approach (ICD-10-PCS; 2017-05-12 07:30)
PROC: 0WBC0ZX Excision of Mediastinum, Open Approach, Diagnostic (ICD-10-PCS; 2017-05-12 07:30)
PROC: 30253N1 (ICD-10-PCS; 2017-05-12 07:30)
PROC: 05HN33Z Insertion of Infusion Device into Left Internal Jugular Vein, Percutaneous Approach (ICD-10-PCS; 2017-05-12 07:36)
PROC: 3E0L3GC Introduction of Other Therapeutic Substance into Pleural Cavity, Percutaneous Approach (ICD-10-PCS; 2017-05-12 07:36)
DX: C34.12 Malignant neoplasm of upper lobe, left bronchus or lung (principal); J86.0 Pyothorax with fistula; J95.812 Postprocedural air leak; G70.00 Myasthenia gravis without (acute) exacerbation; J43.1 Panlobular emphysema; K21.9 Gastro-esophageal reflux disease without esophagitis; Z79.52 Long term (current) use of systemic steroids; I25.10 Atherosclerotic heart disease of native coronary artery without angina pectoris; I10 Essential (primary) hypertension; Z85.46 Personal history of malignant neoplasm of prostate; J92.0 Pleural plaque with presence of asbestos; Z92.3 Personal history of irradiation; Z98.1 Arthrodesis status; Z79.82 Long term (current) use of aspirin; Z79.899 Other long term (current) drug therapy; Z87.891 Personal history of nicotine dependence; Z88.5 Allergy status to narcotic agent

== ENCOUNTER → 2017-06-18 | Outpatient (CLI) | payer OTHER | LOC: M SMT 10:09 | DX: C34.12 Malignant neoplasm of upper lobe, left bronchus or lung (principal); E11.9 Type 2 diabetes mellitus without complications | CPT/HCPCS: 80053 ==

== ENCOUNTER → 2017-06-18 | Outpatient (REF) | payer OTHER ==
[2017-06-18 16:45] LABS: BASO % 0.1 % (0.0-1.0); HEMATOCRIT 35.6 % (42.0-52.0); HEMOGLOBIN 11.9 g/dl (13.5-17.5); IMMATURE GRANULOCYTE % 1.2 % (0-3.0); LYMPH # 0.8 10^3/uL (1.5-4.5); LYMPH % 6.3 % (24.0-44.0); MEAN CORPUSCULAR HEMOGLOBIN 30.5 pg (27.0-33.0); MEAN CORPUSCULAR HGB CONC 33.4 g/dl (32.0-36.5); MEAN CORPUSCULAR VOLUME 91.3 fl (80.0-96.0); MONO # 0.3 10^3/uL (0.0-0.8); MONO % 2.4 % (0.0-5.0); NEUTROPHILS # 10.8 10^3/uL (1.8-7.7); PLATELET COUNT, AUTOMATED 192 10^3/uL (150-450)
[2017-06-18 17:18] LABS: ALBUMIN 3.3 GM/DL (3.2-5.2); ALKALINE PHOSPHATASE 91 U/L (45-117); ALT/SGPT 38 U/L (12-78); ANION GAP 10 MEQ/L (8-16); AST/SGOT 17 U/L (7-37); BILIRUBIN,TOTAL 0.4 MG/DL (0.2-1.0); BLOOD UREA NITROGEN 20 MG/DL (7-18); CALCIUM LEVEL 8.4 MG/DL (8.8-10.2); CARBON DIOXIDE LEVEL 26 MEQ/L (21-32); CHLORIDE LEVEL 101 MEQ/L (98-107); CREATININE FOR GFR 1.12 MG/DL (0.70-1.30); GLOMERULAR FILTRATION RATE > 60.0 (>42); GLUCOSE, FASTING 336 MG/DL (70-100); POTASSIUM SERUM 4.6 MEQ/L (3.5-5.1); SODIUM LEVEL 137 MEQ/L (136-145); TOTAL PROTEIN 6.6 GM/DL (6.4-8.2)
[2017-06-18 19:16] LABS: ESTIMATED AVERAGE GLUCOSE 206 MG/DL (60-110); HEMOGLOBIN A1c 8.8 %
== END ==
LOC: M LABNEURO 15:53
DX: E11.9 Type 2 diabetes mellitus without complications (principal)

== ENCOUNTER → 2017-12-24 | Outpatient (CLI) | payer OTHER | LOC: M RAD 14:29 | DX: C34.92 Malignant neoplasm of unspecified part of left bronchus or lung (principal) | CPT/HCPCS: Q9967 ==

== ENCOUNTER → 2018-07-05 | Outpatient (CLI) | payer OTHER ==
[~2018-07-05] MED LIST changes: +ASPI81TA26 PO; +ATEN50TA2 PO; +IRBE150T12 PO; -ISOVUE-370 76% 100ML VIAL (Q9967) As Ordered; +ISOVUE-370 76% 100ML VIAL (Q9967) As Ordered ONE; +METH2.5T48 PO; +PRED20TA PO; +PYRI60TA2 PO; +RANI300T PO; +TERA5CAP3 PO; +VITA2000 PO
--- NOTE | 2018-07-06 08:40 | REP ---
Clinical: Pneumoconiosis. Technique: Axial contrast enhanced images from the thoracic inlet to the upper abdomen with coronal and sagittal re-formations using 100 ml Isovue 370 intravenous contrast material. Comparison: 12/24/2017. Findings: Bilateral pleuroparenchymal changes (right greater than left) primarily noted at the right apex and bilateral bases includes ill-defined scattered somewhat irregular / nodular and partially calcified pleural plaques along with elements of fibrosis/scarring. Findings remain essentially stable and no obvious acute consolidation, or mass lesion is appreciated. No pleural effusion. No pneumothorax. Tracheobronchial tree is relatively patent. No significant adenopathy. Mediastinum demonstrates stable partially calcified lymph nodes. Stable atherosclerotic changes to the thoracic aorta and coronary arteries noted without aortic aneurysm/dissection or cardiomegaly. No pericardial effusion. Small hiatal hernia at the gastroesophageal junction noted. Osseous structures demonstrate degenerative changes. Limited upper abdomen demonstrates a stable left adrenal nodule consistent with adenoma and measuring approximately 1.6 cm diameter. Impression: Stable chronic pleuroparenchymal changes as described above consistent with talc pneumoconiosis. No obvious acute mediastinal or pleuroparenchymal process. Electronically Signed by Michele Kelly MD 07/06/2018 08:31 A
== END ==
LOC: M RAD 10:52
PROVIDERS: ATTEND Internal Medicine Pulmonary Disease
DX: R91.8 Other nonspecific abnormal finding of lung field (principal)
CPT/HCPCS: 71260; Q9967

== ENCOUNTER → 2019-01-11 | Outpatient (CLI) | payer OTHER ==
[~2019-01-11] MED LIST changes: -ISOVUE-370 76% 100ML VIAL (Q9967) As Ordered ONE
[2019-01-11 19:30] LABS: BLOOD UREA NITROGEN 14 MG/DL (7-18); CREATININE FOR GFR 0.99 MG/DL (0.70-1.30); GLOMERULAR FILTRATION RATE > 60.0 (>42)
== END ==
LOC: M SMT 14:38
PROVIDERS: ATTEND Internal Medicine Pulmonary Disease
DX: J62.0 Pneumoconiosis due to talc dust (principal)

== ENCOUNTER → 2019-01-14 | Outpatient (CLI) | payer OTHER ==
[~2019-01-14] MED LIST changes: +ISOVUE-370 76% 100ML VIAL (Q9967) As Ordered ONE
--- NOTE | 2019-01-14 11:22 | REP ---
CT chest with IV contrast: History: Malignant neoplasm of the left upper lobe. Comparison chest CT study is reviewed from July 05, 2018 and December 24, 2017. CT contrast dose: 100 mL of intravenous Isovue 370. CT findings: The patient is status post prior left upper lobectomy. There is scattered bilateral calcific pleural plaquing again noted which may reflect previous asbestos exposure. There are chronic fibrotic changes in the right upper lobe and to a lesser extent in the bases. There is no evidence of hilar or mediastinal mass or adenopathy. No pleural or pericardial effusion has developed. There is mild nodular enlargement of the left adrenal gland which is unchanged from January 12, 2018. Mild diffuse fatty liver change is noted. There is a small sliding-type hiatal hernia. Left coronary artery vascular calcification is noted. Atherosclerotic plaquing and narrowing are noted at the origin of the left subclavian artery. The left vertebral artery is small compared to the right and appears to take a direct aortic origin which is a normal variant. There is a granulomatous and/or pleural calcification in the right mid lung field unchanged. No significant pulmonary nodule or mass lesion is observed. No bony destructive lesion is seen. Impression: Post thoracotomy changes on the left. Extensive calcific pleural plaquing noted bilaterally. Fibrotic changes. No acute abnormality. Electronically Signed by Dariel Willoughby MD 01/14/2019 02:09 P
== END ==
LOC: M RAD 08:04
PROVIDERS: ATTEND Internal Medicine Pulmonary Disease
DX: J92.9 Pleural plaque without asbestos (principal); C34.12 Malignant neoplasm of upper lobe, left bronchus or lung; Z90.2 Acquired absence of lung [part of]; Z98.890 Other specified postprocedural states
CPT/HCPCS: 71260; Q9967

== ENCOUNTER → 2019-07-26 | Outpatient (CLI) | payer OTHER ==
[~2019-07-26] MED LIST changes: -IRBE150T12 PO; +IRBE150T7 PO; -ISOVUE-370 76% 100ML VIAL (Q9967) As Ordered ONE; +ISOVUE-370 76% 100ML VIAL As Ordered ONE
--- NOTE | 2019-07-27 02:30 | REP ---
Clinical: Talc pneumoconiosis. Technique: Axial contrast enhanced images from the thoracic inlet to the upper abdomen with coronal and sagittal re-formations using 75 ml Isovue 370 intravenous contrast material. Comparison: 01/14/2019, 12/24/2017 Findings: Chronic bilateral pleuroparenchymal changes including scattered calcified pleural plaques and subpleural nodular densities, scattered fibrosis primarily involving the right upper lung zone and bilateral bases as well as left-sided volume loss secondary to prior left upper lobe resection again noted. No acute consolidation, new nodule/mass lesion or pleural effusion. No pneumothorax. No significant adenopathy. Mediastinum demonstrates atherosclerotic changes to the thoracic aorta and coronary arteries without aortic aneurysm or dissection. No cardiomegaly or significant pericardial effusion. Surrounding musculoskeletal structures demonstrate stable changes without acute osseous abnormality. Impression: Chronic stable changes. No new acute mediastinal or pleuroparenchymal process. Electronically Signed by Michele Kelly MD 07/27/2019 02:22 A
== END ==
LOC: M RAD 13:18
PROVIDERS: ATTEND Internal Medicine Pulmonary Disease
DX: J62.0 Pneumoconiosis due to talc dust (principal); J84.10 Pulmonary fibrosis, unspecified; I70.0 Atherosclerosis of aorta; I25.10 Atherosclerotic heart disease of native coronary artery without angina pectoris
CPT/HCPCS: 71260; Q9967

== ENCOUNTER 2020-04-12 09:54 | Outpatient (CLI) | payer MEDICARE ==
[~2020-04-12 09:54] MED LIST changes: +ALBUTEROL 90 MCG/ACT 8GM HFA INHALER INH PRN; +ALBUTEROL SULFATE 2.5 MG/0.5 ML INH NEB SOLN INH PRN; +EPINEPHrine INJ 1 MG/ML 1ML AMP IM PRN; -ISOVUE-370 76% 100ML VIAL As Ordered ONE; +NS 1,000 ML IV SCH; +diphenhydrAMINE 25MG CAP PO ONE; +diphenhydrAMINE 50MG/ML VIAL (J1200) IV PRN; +methylPREDNISolone 125MG 2ML VIAL IV PRN; +methylPREDNISolone 40MG 1ML VIAL IV ONE
[2020-04-12 10:45] VITALS: BP 144/72
[2020-04-12] MEDS ORDERED: BAMLANIVIMAB 700 MG in NS 250 ML IV ONE (11:00)
[2020-04-12 11:22] VITALS: BP 149/72
[2020-04-12 11:58] VITALS: BP 158/81
[2020-04-12 12:24] VITALS: BP 147/70
--- NOTE | 2020-04-12 13:04 | HPE ---
PULMONARY CRITICAL CARE HISTORY AND PHYSICAL DATE OF ADMISSION: 04/12/2020 Dr. Neal Chaves Resident Physician dictating for Attending Physician Dr. Cortez Thomas. HISTORY OF PRESENT ILLNESS: Robin is a very pleasant 79-year-old male who is presenting to the [facility] today, 04/12/20, to receive monoclonal antibody treatment (bamlanivimab, [id number]) for COVID-19 viral infection. Robin tested positive for COVID-19 yesterday (04/11/20) at his primary care physician's office (Dr. Renteria). He first noticed symptoms on the evening of Tuesday, April 07, 2020. On that Thursday he was with his at home and some of his 4 children were also over. He felt significantly fatigued that afternoon and went to bed early. He slept roughly 10 hours waking up on April 08 with a reported home oral temperature of 101.4 with accompanying myalgias and arthralgias. He took ibuprofen and subsequently reported his fever broke and he felt better as his myalgias and arthralgias improved. Come April 09 he reported this as a "good day." He was seen by his outpatient wire tester Dr. Chapin Veliz for a 10 a.m. appointment as he has an extensive pulmonary medical record history (detailed in the Past Medical History section of this note). He was started on prn nebulizer treatment at home qid to decrease secretions and has reported that they have been helping. He woke up on the morning of April 10 and again was febrile with oral temperature at home of about 101. He also had myalgias and arthralgias and developed some accompanying chills. He subsequently took ibuprofen again and reports that the fever broke and the chills and myalgias and arthralgias decreased. He woke up yesterday on April 11 and made an appointment with his primary care physician Dr. Renteria, where he subsequently tested positive for COVID-19. Upon presentation today he feels very well, he does not feel as though he has a fever and his strength is adequate. He has chronic dyspnea on exertion due to his multiple pulmonary comorbidities, but this is unchanged from baseline. Of note, he reports that his daughter who was present at the get-together on Thursday the , subsequently tested positive today (04/12) for COVID-19 and his tested positive for COVID-19 yesterday (04/11/20). He reports his has been having a significant cough as well as fever. Other than the family get- together this past Thursday afternoon with family he reports no other known exposures, recent travel or big social events that he has attended. Upon presentation today in addition to denying any fever, chills, night sweats or fatigue he also denies any chest pain, palpitations, nausea, vomiting, diarrhea, constipation or blood in the stool. He also does not have any headaches, clouded thinking, instability, or changes in smell or taste. He does report chronic baseline dyspnea on exertion that is unchanged and he also reports chronic left upper chest, anterior chest pressure that he has had ever since an upper left lung lobe resection in 2018 - - this is unchanged from baseline. PRIMARY CARE PHYSICIAN: Ayden Renteria MD. OTHER OUTPATIENT DOCTORS: 1. hCapin Veliz DO, pulmonology. 2. Areli Godwin MD, neurology. ALLERGIES: CODEINE - reaction is anaphylaxis. PAST MEDICAL HISTORY: 1. 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 Jaden Ramirez. 2. 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 3. Myasthenia gravis. 4. Prostate cancer status post implantation of prostatic radioactive seeding with a history of BPH as well. 5. Hypertension. 6. Thoracic outlet syndrome status post surgical removal of left first rib. 7. Cervical spine disease status post fusion. PAST SURGICAL HISTORY: 1. Left upper lobe lung resection in April of 2017. 2. Cervical spinal fusion. 3. Surgical removal of left first rib. MEDICATIONS: 1. Terazosin. 2. Atenolol. 3. Irbesartan. 4. Ventolin as needed. 5. Aspirin 81. 6. Methotrexate 3 pills 7.5 mg weekly on Sundays. 7. Famotidine. FAMILY HISTORY: He reports his mother, father and 2 sisters are all and all were diagnosed with lung cancer. Brother , diabetes mellitus. Sister living. Has 4 living children with no significant medical issues. SOCIAL HISTORY: Patient is retired and lives with his in [place]. As mentioned they have 4 children. 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 He is a former smoker having quit 32 years ago in 1987 after smoking approximately 1/3 pack of cigarettes every day for 20 years. He has not had any alcohol to drink since 2018 and prior to that would have a few beers a week in a social setting. He denies any current or former use of illegal drugs. REVIEW OF SYSTEMS: A 10 point review of systems was systematically covered and all pertinent positives and negatives are reported in the HPI. All others were negative. PHYSICAL EXAMINATION: Vitals: Temperature 98, heart rate 64, respiratory rate 20, blood pressure 149/72, SPO2 99% on room air. General: Very pleasant elderly male lying upright in bed. He is alert and oriented times 3, in no acute distress. HEENT: Normocephalic, atraumatic. Non-injected, anicteric sclerae. He is wearing eyeglasses. No significant conjunctival pallor. Pupils are equal, round and reactive to light and accommodation. Mucous membranes are somewhat dry. There is no pharyngeal erythema or exudate. Neck: Supple. There is a scar over the right side of his anterior neck, a well healed incisional scar. No lymphadenopathy is appreciated. Trachea is midline. Cardiovascular: Regular rate, regular rhythm, normal S1 and S2. No murmurs or rubs are appreciated. Two plus radial pulses palpated bilaterally. Respiratory: He has some diminished tidal volume with some slight crepitus in the right lung base otherwise no significant wheezes, rhonchi or crackles are appreciated. He is speaking full sentences, breathing room air and is not using any accessory muscles. There is symmetric chest expansion. Gastrointestinal: Soft, obese, nondistended. Moderate suprapubic tenderness. Hypoactive bowel sounds throughout. No rigidity appreciated. Extremities: Bilateral lower extremities are free of edema. There are no signs of clubbing or cyanosis. 2+ radial pulses bilaterally. Neurologic: Patient is awake, alert and oriented times 3. No focal neurologic deficits appreciated. Non-dysarthric speech. Psychiatric: Mood and affect appear appropriate. IMPRESSION AND PLAN: Robin is a very pleasant 79-year-old male with a past medical history of moderately differentiated adenocarcinoma of the left upper lobe with talc related pneumoconiosis, myasthenia gravis, prostate cancer status post radiative seed implantation, thoracic outlet syndrome status post left first rib surgical removal, BPH, hypertension and cervical spine disease status post cervical fusion who presented to the [facility] to undergo treatment with monoclonal antibody (bamlanivimab, [id number]) for a COVID viral infection. 1. COVID-19 viral infection: Patient was diagnosed yesterday on a positive test (04/11/20) and first began having symptoms on the afternoon of 04/07/20. Both his and daughter whom he was with on Thursday have also subsequently tested positive. He was counseled on the benefits and risks of receiving bamlanivimab and signed informed consent to undergo treatment with the monoclonal antibody today. He was given preemptive Benadryl 25 mg orally as well as Solu-Medrol 40 mg I.V. to tolerate the monoclonal antibody administration. He reports no history of intolerance of Benadryl. We will continue to monitor the patient here in the ICU for at least an hour after administration of the monoclonal antibody for any hypersensitivity or anaphylactic reactions. Should he be asymptomatic and tolerate the medication well, he will subsequently be discharged as he was admitted for this treatment as an outpatient. 2. Pneumoconiosis, talc related: This has caused a restrictive pattern. He follows with Dr. Veliz as an outpatient and was just seen 3 days ago for an appointment where he was prescribed prn home nebulizer treatment which has helped for increased secretions. Per documentation, he will follow up again with Dr. Veliz in 6 months time as an outpatient. 3. Myasthenia gravis: Follows with Dr. Godwin of the neurology service as an outpatient. He takes methotrexate, does not take any folic acid. He takes 7.5 mg in the form of 3 methotrexate pills every Thursday. 4. Essential hypertension: Patient takes a beta-hector and angiotensin receptor hector terazosin as an outpatient. 5. Disposition: As mentioned, should patient tolerate medication well today with no side effects, he will subsequently be discharged. CODE STATUS: Patient reports he is currently Full Code. MTDD
[2020-04-12 13:16] VITALS: BP 142/75
== END 2020-04-12 13:30 ==
LOC: M OPCLI4 09:54 → M ICU 10:03 → M OPCLI4 13:30
PROVIDERS: ATTEND Internal Medicine Pulmonary Disease
DX: U07.1 COVID-19 (principal); Z88.6 Allergy status to analgesic agent
CPT/HCPCS: 96375; J2920; M0239

== ENCOUNTER 2020-04-17 20:18 | Inpatient (IN) | payer MEDICARE ==
[~2020-04-17] VITALS: Ht 170.2 cm; Wt 98.6 kg
[~2020-04-17 20:18] MED LIST changes: -ALBUTEROL 90 MCG/ACT 8GM HFA INHALER INH PRN; -ALBUTEROL SULFATE 2.5 MG/0.5 ML INH NEB SOLN INH PRN; -EPINEPHrine INJ 1 MG/ML 1ML AMP IM PRN; -NS 1,000 ML IV SCH; -diphenhydrAMINE 25MG CAP PO ONE; -diphenhydrAMINE 50MG/ML VIAL (J1200) IV PRN; -methylPREDNISolone 125MG 2ML VIAL IV PRN; -methylPREDNISolone 40MG 1ML VIAL IV ONE
--- OUTSIDE RECORDS SUMMARY | 2020-04-17 20:26 | CCD | Continuity of Care Document ---
Author Author Jean Claude VELIZ DO Organization Unknown Address [address] [place] [address] Phone [phone] Care Team Providers Care [employer] Name Role Phone Ayden Renteria M.D. AUTM [phone] Areli Godwin MD AUTM [phone] Jaden Ramirez M.D. AUTM [phone] Cortez Thomas D.O. AUTM [phone] Radiology/Procedure AUTM Unavailable Problems Active Problems Provider Date Panacinar emphysema Cortez Thomas D.O. Onset: 03/17/2017 Ex-smoker Cortez Thomas D.O. Onset: 03/17/2017 Increased markings Cortez Thomas D.O. Onset: 03/17/2017 Pleurisy without effusion or active tuberculosis Cortez Thomas D.O. Onset: 03/17/2017 Malignant neoplasm of upper lobe, bronchus or lung Cortez yung D.O. 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 Smoking Status Reviewed: 04/04/20 Patient is a former smoker 1 ppd quit 1987 smoked for 30yr. Allergies, Adverse Reactions, Alerts Active Allergies Reaction Severity Comments Date Codeine 03/17/2017 Medications Active Medications SIG Qnty Indications Ordering Provide r Date Ventolin HFA 108(90Base) mcg/Act A erosol 2 puffs qid/prn 54units Chapin Veliz, DO 03/17/2017 Irbesartan 75mg Tablets 1 tab by mouth every day Unknown Atenolol 25mg Tablets 1 by mouth every day Unknown Terazosin HCL 5mg Capsules 1 cap by mouth every day Unknown Aspir-[address] 1 tab by mouth every day Unknown Vitamin D 2000Unit Capsules 1 cap by mouth every day Unknown Methotrexate Sodium 2.5mg Tablets 3 pills once a week Unknown Stiolto Respimat 2.5-2.5mcg/Act Ae rosol 2 puffs once daily (worker's comp) 4gm J43.1 Chapin Joseph n, DO Famotidine 40mg Tablets 1 tab by mouth every day 180tabs Nidia Swenson, SYSTEMS SOFTWARE ENGINEER Immunizations Description No Information Available Vital Signs Date Vital Result Comment 04/04/2020 10:19am BP Systolic 130 mmHg BP Diastolic 80 mmHg Heart Rate 64 /min O2 % BldC Oximetry 93 % Body Temperature 98.4 F Height 68 inches 5'8" Weight 226.00 lb BMI (Body Mass Index) 34.4 kg/m2 [place] Body Weight 154 lb Weight 102.514 kg BSA (Body Surface Area) 2.15 m2 08/11/2019 8:29am BP Systolic 118 mmHg BP Diastolic 78 mmHg Heart Rate 63 /min O2 % BldC Oximetry 98 % Body Temperature 97.1 F Height 68 inches 5'8" Weight 226.00 lb BMI (Body Mass Index) 34.4 kg/m2 [place] Body Weight 154 lb Weight 102.514 kg BSA (Body Surface Area) 2.15 m2 Results Test Acquired Date Facility Test Result H/L Range Note FVL/Sandor 04/04/2020 [facility] SEE IMAGE FVC-Pred 3.74 L FVC-Pre 2.42 L FVC-%Pred-Pre 64 L FVC-LLN 2.86 L Fev1-Pred 2.66 L Fev1-Pre 1.54 L Fev1-%Pred-Pre 57 L Fev1-LLN 1.91 L Fev6-Pred 3.48 L Fev6-Pre 2.42 L Fev6-%Pred-Pre 69 L Fev6-LLN 2.62 L Wge0ydc-Owih 72 % Jmk6ewr-Fin 64 % Qdw4mpk-%Pred-Pre 88 % Fmx8mok-ALD 62 % Ylj5jtn-Bsih 93 % Gkj3slr-Pde 100 % Wiq0igo-%Pred-Pre 107 % FEFMax-Pred 6.91 L/E/sec FEFMax-Pre 4.31 L/E/sec FEFMax-%Pred-Pre 62 L/E/sec FEFMax-LLN 4.72 L/E/sec Xkk3140-Aifl 1.84 L/E/sec Nqf4780-Zjl 0.79 L/E/sec Myb7988-%Pred-Pre 43 L/E/sec Nht7083-FDD 0.33 L/E/sec ExpTime-Pre 5.64 sec Biv2fvd6-Pzwt 76 % Jtl5dpx5-Ssh 64 % Ory1qtb5-%Pred-Pre 83 % Tre4ynn0-EUI 67 % Procedures Description No Information Available Medical Devices Description No Information Available Encounters Description No Information Available Assessments Description No Information Available Plan of Treatment 08/11/2019 - Chapin Veliz, DO* J62.0 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 dust * C34.12 Malignant neoplasm of upper lobe, left bronchus or lung * G73.3 Myasthenic syndromes in other diseases classified elsewhere * * Comments:* ~ Having reviewed the history, physical, and diagnostic findings with the patient, he does appear to be benefiting from long-acting bronchodilator therapy, and we will continue with Anshu, having encouraged him to begin using his short-acting beta agonist prior to exercise for what benefit it may give. ~ His respiratory muscle strength is poor, perhaps due to deconditioning. Assuming his myasthenia gravis is indeed controlled at this point, we should be able to make improvement with exercise, and we have discussed some exercises that he will participate in to improve conditioning and exercise tolerance. ~ We discussed the importance of infection surveillance, and I encouraged him to call.~ Follow-up will be scheduled in six months with spirometry flow volume loop testing. We will need to continue imaging follow-up in light of his lung malignancy on an annual basis. * Follow up:* Use Ventolin before activity. Routine follow-up in six months with spirometry/FVL. Functional Status Functional Condition Comment Date Status Independent with all ADL's Activ e Mental Status Description No Information Available Referrals Description No Information Available
--- OUTSIDE RECORDS SUMMARY | 2020-04-17 20:26 | CCD ---
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 Name Role Phone Holman, Matilde PA Unavailable Unavailable Holman, Matilde PA Unavailable Unavailable Holman, Matilde PA Unavailable Unavailable Holman, Matilde PA Unavailable Unavailable Holman, Matilde PA Unavailable Unavailable Holman, Matilde PA Unavailable Unavailable Holman, Matilde PA Unavailable Unavailable Holman, Matilde PA Unavailable Unavailable Holman, Matilde PA Unavailable Unavailable Holman, Matilde PA Unavailable Unavailable Holman, Matilde PA Unavailable Unavailable Holman, Matilde PA Unavailable Unavailable Holman, Matilde PA Unavailable Unavailable Holman, Matilde PA Unavailable Unavailable Holman, Matilde PA Unavailable Unavailable Holman, Matilde PA Unavailable Unavailable Holman, Matilde PA Unavailable Unavailable Holman, Matilde PA Unavailable Unavailable Holman, Matilde PA Unavailable Unavailable Holman, Matilde PA Unavailable Unavailable Holman, Matilde PA Unavailable Unavailable Holman, Matilde PA Unavailable Unavailable Holman, Matilde PA Unavailable Unavailable Holman, Matilde PA Unavailable Unavailable Holman, Matilde PA Unavailable Unavailable Holman, Matilde PA Unavailable Unavailable Holman, Matilde PA Unavailable Unavailable Holman, Matilde PA Unavailable Unavailable Holman, Matilde PA Unavailable Unavailable Holman, Matilde PA Unavailable Unavailable Holman, Matilde PA Unavailable Unavailable Holman, Matilde PA Unavailable Unavailable Holman, Matilde PA Unavailable Unavailable Holman, Matilde PA Unavailable Unavailable Holman, Matilde PA Unavailable Unavailable Holman, Matilde PA Unavailable Unavailable Holman, Matilde PA Unavailable Unavailable Belen Guzman, PAC Unavailable Unavailable Bette Renteria MD Unavailable Unavailable Bette Renteria MD Unavailable Unavailable LynBette singh MD Unavailable Unavailable LynBette singh MD Unavailable Unavailable LynBette singh MD Unavailable Unavailable Bette Renteria MD Unavailable Unavailable Bette Renteria MD Unavailable Unavailable LynBette singh MD Unavailable Unavailable Bette Renteria MD Unavailable Unavailable Bette Renteria MD Unavailable Unavailable Bette Renteria MD Unavailable Unavailable Bette Renteria MD Unavailable Unavailable Bette Renteria MD Unavailable Unavailable LynBette singh MD Unavailable Unavailable LynBette singh MD Unavailable Unavailable LynBette singh MD Unavailable Unavailable Bette Renteria MD Unavailable Unavailable Bette Renteria MD Unavailable Unavailable Bette Renteria MD Unavailable Unavailable Bette Renteria MD Unavailable Unavailable LynBette singh MD Unavailable Unavailable Bette Renteria MD Unavailable Unavailable Bette Renteria MD Unavailable Unavailable LynBette singh MD Unavailable Unavailable LynBette singh MD Unavailable Unavailable Bette Renteria MD Unavailable Unavailable LynBette singh MD Unavailable Unavailable LynBette singh MD Unavailable Unavailable LynBette singh MD Unavailable Unavailable LynBette singh MD Unavailable Unavailable LynBette singh MD Unavailable Unavailable LynBette singh MD Unavailable Unavailable LynBette singh MD Unavailable Unavailable LynBette singh MD Unavailable Unavailable LynBette singh MD Unavailable Unavailable LynBette singh MD Unavailable Unavailable LynBette singh MD Unavailable Unavailable LynBette singh MD Unavailable Unavailable LynBette singh MD Unavailable Unavailable LynBette singh MD Unavailable Unavailable LynBette singh MD Unavailable Unavailable LyndaBette garcia MD Unavailable Unavailable LyndaBette garcia MD Unavailable Unavailable LyndaBette garcia MD Unavailable Unavailable LyndaBette garcia MD Unavailable Unavailable LyndaBette garcia MD Unavailable Unavailable LyndaBette garcia MD Unavailable Unavailable LyndaBette garcia MD Unavailable Unavailable LyndaBette garcia MD Unavailable Unavailable LyndaBette garcia MD Unavailable Unavailable LyndaBette garcia MD Unavailable Unavailable LyndakerBette MD Unavailable Unavailable LyndakerBette MD Unavailable Unavailable LyndaBette garcia MD Unavailable Unavailable LyndaBette garcia MD Unavailable Unavailable LyndaBette garcia MD Unavailable Unavailable LyndaBette garcia MD Unavailable Unavailable LyndaBette garcia MD Unavailable Unavailable LyndaBette garcia MD Unavailable Unavailable LyndaBette garcia MD Unavailable Unavailable LyndaBette garcia MD Unavailable Unavailable LyndaBette garcia MD Unavailable Unavailable LyndaBette garcia MD Unavailable Unavailable LyndaBette garcia MD Unavailable Unavailable LyndaBette garcia MD Unavailable Unavailable LyndaBette garcia MD Unavailable Unavailable LyndaBette garcia MD Unavailable Unavailable LyndaBette garcia MD Unavailable Unavailable LyndaBette garcia MD Unavailable Unavailable LyndaBette garcia MD Unavailable Unavailable LyndaBette garcia MD Unavailable Unavailable LynBette singh MD Unavailable Unavailable LynBette singh MD Unavailable Unavailable LynBette singh MD Unavailable Unavailable LynBette singh MD Unavailable Unavailable LynBette singh MD Unavailable Unavailable LyndaBette garcia MD Unavailable Unavailable LyndaBette garcia MD Unavailable Unavailable LyndaBette garcia MD Unavailable Unavailable LynBette singh MD Unavailable Unavailable LynBette singh MD Unavailable Unavailable LynBette singh MD Unavailable Unavailable LyndaBette garcia MD Unavailable Unavailable LyndaBette garcia MD Unavailable Unavailable LyndaBette garcia MD Unavailable Unavailable LyndaBette garcia MD Unavailable Unavailable LynBette singh MD Unavailable Unavailable LyndaBette garcia MD Unavailable Unavailable LyndaBette garcia MD Unavailable Unavailable LyndaBette garcia MD Unavailable Unavailable LyndaBette garcia MD Unavailable Unavailable Trickey, J Belen PA Unavailable Unavailable Trickey, J Belen PA Unavailable Unavailable Trickey, J Belen PA Unavailable Unavailable Trickey, J Belen PA Unavailable Unavailable Trickey, J Belen PA Unavailable Unavailable Trickey, J Belen PA Unavailable Unavailable Trickey, J Belen PA Unavailable Unavailable Trickey, J Belen PA Unavailable Unavailable Trickey, J Belen PA Unavailable Unavailable Trickey, J Belen PA Unavailable Unavailable Trickey, J Belen PA Unavailable Unavailable Trickey, J Belen PA Unavailable Unavailable Trickey, J Belen PA Unavailable Unavailable Trickey, J Belen PA Unavailable Unavailable Trickey, J Belen PA Unavailable Unavailable Trickey, J Belen PA Unavailable Unavailable Trickey, J Belen PA Unavailable Unavailable Trickey, J Belen PA Unavailable Unavailable Trickey, J Belen PA Unavailable Unavailable Trickey, J Belen PA Unavailable Unavailable Trickey, J Belen PA Unavailable Unavailable Trickey, J Belen PA Unavailable Unavailable Trickey, J Belen PA Unavailable Unavailable Trickey, J Belen PA Unavailable Unavailable Trickey, J Belen PA Unavailable Unavailable Trickey, J Belen PA Unavailable Unavailable Trickey, J Belen PA Unavailable Unavailable Trickey, J Belen PA Unavailable Unavailable Trickey, J Belen PA Unavailable Unavailable Trickey, J Belen PA Unavailable Unavailable Trickey, J Belen PA Unavailable Unavailable Trickey, J Belen PA Unavailable Unavailable Trickey, J Belen PA Unavailable Unavailable Trickey, J Belen PA Unavailable Unavailable Trickey, J Belen PA Unavailable Unavailable Trickey, J Belen PA Unavailable Unavailable Trickey, J Belen PA Unavailable Unavailable Trickey, J Belen PA Unavailable Unavailable Trickey, J Belen PA Unavailable Unavailable Trickey, J Belen PA Unavailable Unavailable Trickey, J Belen PA Unavailable Unavailable Trickey, J Belen PA Unavailable Unavailable Trickey, J Belen PA Unavailable Unavailable Trickey, J Belen PA Unavailable Unavailable Trickey, J Belen PA Unavailable Unavailable Trickey, J Belen PA Unavailable Unavailable Trickey, J Belen PA Unavailable Unavailable Trickey, J Belen PA Unavailable Unavailable Droie Veliz DO Unavailable Unavailable Dorie Veliz DO Unavailable Unavailable Dorie Veliz DO Unavailable Unavailable Dorie Veliz DO Unavailable Unavailable Dorie Veliz DO Unavailable Unavailable Dorie Veliz DO Unavailable Unavailable Dorie Veliz DO Unavailable Unavailable Dorie Veliz DO Unavailable Unavailable Rechlin, P Chapin DO Unavailable Unavailable Rechlin, P Chapin DO Unavailable Unavailable Rechlin, P Chapin DO Unavailable Unavailable Rechlin, P Chapin DO Unavailable Unavailable Rechlin, P Chapin DO Unavailable Unavailable Rechlin, P Chapin DO Unavailable Unavailable Rechlin, P Chapin DO Unavailable Unavailable Rechlin, P Chapin DO Unavailable Unavailable Rechlin, P Chapin DO Unavailable Unavailable Rechlin, P Chapin DO Unavailable Unavailable Rechlin, P Chapin DO Unavailable Unavailable Rechlin, P Chapin DO Unavailable Unavailable Rechlin, P Chapin DO Unavailable Unavailable Rechlin, P Chapin DO Unavailable Unavailable Rechlin, P Chapin DO Unavailable Unavailable Rechlin, P Chapin DO Unavailable Unavailable Rechlin, P Chapin DO Unavailable Unavailable Rechlin, P Chapin DO Unavailable Unavailable Rechlin, P Chapin DO Unavailable Unavailable Rechlin, P Chapin DO Unavailable Unavailable Rechlin, P Chapin DO Unavailable Unavailable Rechlin, P Chapin DO Unavailable Unavailable Rechlin, P Chapin DO Unavailable Unavailable Rechlin, P Chapin DO Unavailable Unavailable Rechlin, P Chapin DO Unavailable Unavailable Rechlin, P Chapin DO Unavailable Unavailable Rechlin, P Chapin DO Unavailable Unavailable Rechlin, P Chapin DO Unavailable Unavailable Rechlin, P Chapin DO Unavailable Unavailable Rechlin, P Chapin DO Unavailable Unavailable Rechlin, P Chapin DO Unavailable Unavailable Rechlin, P Chapin DO Unavailable Unavailable Rechlin, P Chapin DO Unavailable Unavailable Rechlin, P Chapin DO Unavailable Unavailable Rechlin, P Chapin DO Unavailable Unavailable Rechlin, P Chapin DO Unavailable Unavailable Rechlin, P Chapin DO Unavailable Unavailable Rechlin, P Chapin DO Unavailable Unavailable Rechlin, P Chapin DO Unavailable Unavailable Rechlin, P Chapin DO Unavailable Unavailable Rechlin, P Chapin DO Unavailable Unavailable Rechlin, P Chapin DO Unavailable Unavailable Rechlin, P Chapin DO Unavailable Unavailable Rechlin, P Chapin DO Unavailable Unavailable Rechlin, P Chapin DO Unavailable Unavailable Rechlin, P Chapin DO Unavailable Unavailable Rechlin, P Chapin DO Unavailable Unavailable Rechlin, P Chapin DO Unavailable Unavailable Rechlin, P Chapin DO Unavailable Unavailable Rechlin, P Chapin DO Unavailable Unavailable Rechlin, P Chapin DO Unavailable Unavailable Rechlin, P Chapin DO Unavailable Unavailable Rechlin, P Chapin DO Unavailable Unavailable Rechlin, P Chapin DO Unavailable Unavailable Rechlin, P Chapin DO Unavailable Unavailable Rechlin, P Chapin DO Unavailable Unavailable Rechlin, P Chapin DO Unavailable Unavailable Rechlin, P Chapin DO Unavailable Unavailable Rechlin, P Chapin DO Unavailable Unavailable Rechlin, P Chapin DO Unavailable Unavailable Rechlin, P Chapin DO Unavailable Unavailable Rechlin, P Chapin DO Unavailable Unavailable Rechlin, P Chapin DO Unavailable Unavailable Rechlin, P Chapin DO Unavailable Unavailable Rechlin, P Chapin DO Unavailable Unavailable Rechlin, P Chapin DO Unavailable Unavailable Rechlin, P Chapin DO Unavailable Unavailable Rechlin, P Chapin DO Unavailable Unavailable Rechlin, P Chapin DO Unavailable Unavailable Rechlin, P Chapin DO Unavailable Unavailable Rechlin, P Chapin DO Unavailable Unavailable Rechlin, P Chapin DO Unavailable Unavailable Rechlin, P Chapin DO Unavailable Unavailable Rechlin, P Chapin DO Unavailable Unavailable Rechlin, P Chapin DO Unavailable Unavailable Rechlin, P Chapin DO Unavailable Unavailable Rechlin, P Chapin DO Unavailable Unavailable Rechlin, P Chapin DO Unavailable Unavailable Rechlin, P Chapin DO Unavailable Unavailable Rechlin, P Chapin DO Unavailable Unavailable Rechlin, P Chapin DO Unavailable Unavailable Rechlin, P Chapin DO Unavailable Unavailable Rechlin, P Chapin DO Unavailable Unavailable Rechlin, P Chapin DO Unavailable Unavailable Rechlin, P Chapin DO Unavailable Unavailable Rechlin, P Chapin DO Unavailable Unavailable Rechlin, P Chapin DO Unavailable Unavailable Rechlin, P Chapin DO Unavailable Unavailable MUHA, M RISHI PLATE SHEAR OPERATOR Unavailable Unavailable MUHA, M RISHI PLATE SHEAR OPERATOR Unavailable Unavailable MUHA, M RISHI PLATE SHEAR OPERATOR Unavailable Unavailable MUHA, M RISHI PLATE SHEAR OPERATOR Unavailable Unavailable MUHA, M RISHI PLATE SHEAR OPERATOR Unavailable Unavailable MUHA, M RISHI PLATE SHEAR OPERATOR Unavailable Unavailable MUHA, M RISHI PLATE SHEAR OPERATOR Unavailable Unavailable MUHA, M RISHI PLATE SHEAR OPERATOR Unavailable Unavailable MUHA, M RISHI PLATE SHEAR OPERATOR Unavailable Unavailable MUHA, M RISHI PLATE SHEAR OPERATOR Unavailable Unavailable MUHA, M RISHI PLATE SHEAR OPERATOR Unavailable Unavailable MUHA, M RISHI PLATE SHEAR OPERATOR Unavailable Unavailable MUHA, M RISHI PLATE SHEAR OPERATOR Unavailable Unavailable MUHA, M RISHI PLATE SHEAR OPERATOR Unavailable Unavailable MUHA, M RISHI PLATE SHEAR OPERATOR Unavailable Unavailable MUHA, M RISHI PLATE SHEAR OPERATOR Unavailable Unavailable MUHA, M RISHI PLATE SHEAR OPERATOR Unavailable Unavailable MUHA, M RISHI PLATE SHEAR OPERATOR Unavailable Unavailable MUHA, M RISHI PLATE SHEAR OPERATOR Unavailable Unavailable MUHA, M RISHI PLATE SHEAR OPERATOR Unavailable Unavailable MUHA, M RISHI PLATE SHEAR OPERATOR Unavailable Unavailable MUHA, M RISHI PLATE SHEAR OPERATOR Unavailable Unavailable MUHA, M RISHI PLATE SHEAR OPERATOR Unavailable Unavailable MUHA, M RISHI PLATE SHEAR OPERATOR Unavailable Unavailable MUHA, M RISHI PLATE SHEAR OPERATOR Unavailable Unavailable MUHA, M RISHI PLATE SHEAR OPERATOR Unavailable Unavailable MUHA, M RISHI PLATE SHEAR OPERATOR Unavailable Unavailable MUHA, M RISHI PLATE SHEAR OPERATOR Unavailable Unavailable MUHA, M RISHI PLATE SHEAR OPERATOR Unavailable Unavailable MUHA, M RISHI PLATE SHEAR OPERATOR Unavailable Unavailable MUHA, M RISHI PLATE SHEAR OPERATOR Unavailable Unavailable MUHA, M RISHI PLATE SHEAR OPERATOR Unavailable Unavailable MUHA, M RISHI PLATE SHEAR OPERATOR Unavailable Unavailable MUHA, M RISHI PLATE SHEAR OPERATOR Unavailable Unavailable MUHA, M RISHI PLATE SHEAR OPERATOR Unavailable Unavailable MUHA, M RISHI PLATE SHEAR OPERATOR Unavailable Unavailable MUHA, M RISHI PLATE SHEAR OPERATOR Unavailable Unavailable MUHA, M RISHI PLATE SHEAR OPERATOR Unavailable Unavailable MUHA, M RISHI PLATE SHEAR OPERATOR Unavailable Unavailable MUHA, M RISHI PLATE SHEAR OPERATOR Unavailable Unavailable MUHA, M RIHSI PLATE SHEAR OPERATOR Unavailable Unavailable MUHA, M RISHI PLATE SHEAR OPERATOR Unavailable Unavailable MUHA, M RISHI PLATE SHEAR OPERATOR Unavailable Unavailable MUHA, M RISHI PLATE SHEAR OPERATOR Unavailable Unavailable MUHA, M RISHI PLATE SHEAR OPERATOR Unavailable Unavailable MUHA, M RISHI PLATE SHEAR OPERATOR Unavailable Unavailable MUHA, M RISHI PLATE SHEAR OPERATOR Unavailable Unavailable MUHA, M RISHI PLATE SHEAR OPERATOR Unavailable Unavailable MUHA, M RISHI PLATE SHEAR OPERATOR Unavailable Unavailable MUHA, M RISHI PLATE SHEAR OPERATOR Unavailable Unavailable MUHA, M RISHI PLATE SHEAR OPERATOR Unavailable Unavailable MUHA, M RISHI PLATE SHEAR OPERATOR Unavailable Unavailable MUHA, M RISHI PLATE SHEAR OPERATOR Unavailable Unavailable Bette Renteria MD Unavailable Unavailable Bette Renteria MD Unavailable Unavailable Bette Renteria MD Unavailable Unavailable Bette Renteria MD Unavailable Unavailable Bette Renteria MD Unavailable Unavailable Bette Renteria MD Unavailable Unavailable Bette Renteria MD Unavailable Unavailable Bette Renteria MD Unavailable Unavailable Bette Renteria MD Unavailable Unavailable Bette Renteria MD Unavailable Unavailable Bette Renteria MD Unavailable Unavailable Bette Renteria MD Unavailable Unavailable Bette Renteria MD Unavailable Unavailable Bette Renteria MD Unavailable Unavailable Bette Renteria MD Unavailable Unavailable Bette Renteria MD Unavailable Unavailable Bette Renteria MD Unavailable Unavailable Bette Renteria MD Unavailable Unavailable Bette Renteria MD Unavailable Unavailable Bette Renteria MD Unavailable Unavailable Bette Renteria MD Unavailable Unavailable Bette Renteria MD Unavailable Unavailable Bette Renteria MD Unavailable Unavailable Bette Renteria MD Unavailable Unavailable Bette Renteria MD Unavailable Unavailable Bette Renteria MD Unavailable Unavailable Bette Renteria MD Unavailable Unavailable LyndaBette garcia MD Unavailable Unavailable LyndakerBette MD Unavailable Unavailable LyndaBette garcia MD Unavailable Unavailable LyndakerBette MD Unavailable Unavailable LyndakerBette MD Unavailable Unavailable LyndakerBette MD Unavailable Unavailable LyndaBette garcia MD Unavailable Unavailable LyndaBette garcia MD Unavailable Unavailable LyndaBette garcia MD Unavailable Unavailable LyndaBette garcia MD Unavailable Unavailable LyndakerBette MD Unavailable Unavailable LyndakerBette MD Unavailable Unavailable LyndaBette garcia MD Unavailable Unavailable LyndaBette garcia MD Unavailable Unavailable LyndaBette garcia MD Unavailable Unavailable LyndaBette garcia MD Unavailable Unavailable LyndaBette garcia MD Unavailable Unavailable LyndaBette garcia MD Unavailable Unavailable LyndaBette garcia MD Unavailable Unavailable LyndaBette garcia MD Unavailable Unavailable LyndaBette garcia MD Unavailable Unavailable LyndaBette garcia MD Unavailable Unavailable LyndaBette garcia MD Unavailable Unavailable LyndaBette garcia MD Unavailable Unavailable LyndaBette garcia MD Unavailable Unavailable LyndaBette garcia MD Unavailable Unavailable LyndaBette garcia MD Unavailable Unavailable LyndaBette garcia MD Unavailable Unavailable LyndaBette garcia MD Unavailable Unavailable LyndaBette garcia MD Unavailable Unavailable LyndaBette garcia MD Unavailable Unavailable LyndaBette garcia MD Unavailable Unavailable LyndaBette garcia MD Unavailable Unavailable LynBette singh MD Unavailable Unavailable LynBette singh MD Unavailable Unavailable LyndaBette garcia MD Unavailable Unavailable LyndaBette garcia MD Unavailable Unavailable LyndaBette garcia MD Unavailable Unavailable LyndaBette garcia MD Unavailable Unavailable LynBette singh MD Unavailable Unavailable LynBette singh MD Unavailable Unavailable LyndaBette garcia MD Unavailable Unavailable LyndaBette garcia MD Unavailable Unavailable LyndaBette garcia MD Unavailable Unavailable LyndaBette garcia MD Unavailable Unavailable LyndaBette garcia MD Unavailable Unavailable LyndaBette garcia MD Unavailable Unavailable LyndaBette garcia MD Unavailable Unavailable LyndaBette garcia MD Unavailable Unavailable Lyndaker, L Ayden MD Unavailable Unavailable Lyndaker, L Ayden MD Unavailable Unavailable Lyndaker, L Ayden MD Unavailable Unavailable Lyndaker, L Ayden MD Unavailable Unavailable Lyndaker, L Ayden MD Unavailable Unavailable Lyndaker, L Ayden MD Unavailable Unavailable Lyndaker, L Ayden MD Unavailable Unavailable Lyndaker, L Ayden MD Unavailable Unavailable Lyndaker, L Ayden MD Unavailable Unavailable Lyndaker, L Ayden MD Unavailable Unavailable Lyndaker, L Ayden MD Unavailable Unavailable Lyndaker, L Ayden MD Unavailable Unavailable Lyndaker, L Ayden MD Unavailable Unavailable Lyndaker, L Ayden MD Unavailable Unavailable Lyndaker, L Ayden MD Unavailable Unavailable Re-disclosure Warning The records that you are about to access may contain information from federally-assisted alcohol or drug abuse programs. If such information is present, then the following federally mandated warning applies: This information has been disclosed to you from records protected by federal confidentiality rules (42 CFR part 2). The federal rules prohibit you from making any further disclosure of this information unless further disclosure is expressly permitted by the written consent of the person to whom it pertains or as otherwise permitted by 42 CFR part 2. A general authorization for the release of medical or other information is NOT sufficient for this purpose. The Federal rules restrict any use of the information to criminally investigate or prosecute any alcohol or drug abuse patient.The records that you are about to access may contain highly sensitive health information, the redisclosure of which is protected by Article 27-F of the [facility] Public Health law. If you continue you may have access to information: Regarding HIV / AIDS; Provided by facilities licensed or operated by the [facility] Office of Mental Health; or Provided by the [facility] Office for People With Developmental Disabilities. If such information is present, then the following [facility] mandated warning applies: This information has been disclosed to you from confidential records which are protected by state law. State law prohibits you from making any further disclosure of this information without the specific written consent of the person to whom it pertains, or as otherwise permitted by law. Any unauthorized further disclosure in violation of state law may result in a fine or prison sentence or both. A general authorization for the release of medical or other information is NOT sufficient authorization for further disc losure. Family History Family Member Name Family Member Gender Family Member Status Date o f Status Description Data Source(s) Unknown Unknown Problem [facility] ([facility]) Encounters Encounter Providers Location Date Indications Data Source(s ) Outpatient Attender: Chapin Alvarado/Haris/Jeremias/Raffi ravi 04/04/2020 09:30:00 AM EST [facility] ([facility] Office Visit Attender: Belen METZGER [place] 01/31/2020 08:15:00 AM EST [facility] ([facility] Outpatient Attender: Belen METZGER Main [place] 10/20/2019 09:00:00 AM EDT [facility] ([facility] ) Outpatient<td ID="encounterTypeDescripti [email or web address]">ANNUAL PE-followup exam</td><td>Ayden Renteria MD</td><td>[facility], [facility]</td><td>09/23/2019</td><td>10:03AM</td><td>11:32AM</td><td><content ID="encounterDiagnosisID2-0">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)</content></td> Attender: Ayden Renteria MD [facility], [facility] 09/23/2019 10:03:00 AM EDT - 09/23/2019 11:32:00 AM ED T 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) [place] ([facility]) Routine History and Physical Senior C[place] lavon (65-80 Yrs) Outpatient<td ID="encounterTypeDescripti onID1">followup</td><td>Ayden Renteria MD</td><td>[facility], [facility]</td><td>09/23/2019</td><td>10:03AM</td><td>11:32AM</td><td><content ID="encounterDiagnosisID1-0">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</content>, <content ID="encounterDiagnosisID1-1">Esophagitis Chronic Reflux</content>, <content ID="encounterDiagnosisID1-2">Myasthenia Gravis Without Acute Exacerbation</content>, <content ID="encounterDiagnosisID1- 3">Pneumoconiosis - Asbestosis</content>, <content ID="encounterDiagnosisID1- 4">Lung Neoplasm Malignant Adenocarcinoma</content>, <content ID="encounterDiagnosisID1-5">Essential Hypertension</content></td> Attender: Ayden Renteria MD [facility], [facility] 09/23/2019 10:03:00 A M EDT - 09/23/2019 11:32:00 AM EDT Pneumoconiosis - AsbestosisPneumoconiosi s - AsbestosisLung Neoplasm Malignant AdenocarcinomaLung Neoplasm Malignant AdenocarcinomaMyasthenia Gravis Without Acute ExacerbationMyasthenia Gravis Without Acute Exacerbation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Esophagitis Chronic RefluxEsophagitis Chronic RefluxEssential HypertensionEssential Hypertension [place] ([facility]) 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 Myasthenia Gravis Without Acute Exacerba tion Myasthenia Gravis Without Acute Exacerba tion Diabetes Mellitus Diabetic Peripheral Ne uropathy Type 2 Diabetes Mellitus Diabetic Peripheral Ne uropathy Type 2 Esophagitis Chronic Reflux Esophagitis Chronic Reflux Essential Hypertension Essential Hypertension Outpatient<td ID="encounterTypeDescripti onID0"> Annual Wellness SUBSEQUENT visi t(> 1yr since prev.</td><td>Ayden Renteria MD</td><td>[facility], [facility]</td><td>09/23/2019</td><td> 10:03AM</td><td>11:31AM</td><td><content ID="encounterDiagnosisID0-0">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)</content></td> Attender: Ayden Renteria MD [facility], [facility] 09/23/2019 10:03:00 A M EDT - 09/23/2019 11:31:00 AM EDT Routine History and Physical Senior Citi lavon (65-80 Yrs)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)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) [facility] ([facility]) Routine History and Physical Senior Citi lavon (65-80 Yrs) Routine History and Physical Senior Citi lavon (65-80 Yrs) Routine History and Physical Senior Citi lavon (65-80 Yrs) Outpatient Attender: Chapni Alvarado/Haris/Jeremias/Raffi ndl 08/11/2019 09:30:00 AM EDT [facility] Outpatient 08/09/2019 05:35:00 AM EDT [facility] Outpatient Att[facility]: [facility]in [facility] 12[facility]43[facility]00 PM EDT - 07/27/2019 12:44:00 PM EDT [address] J[address] Patient discharged. Outpatient Attender: BETSY GuzmanAttender: Belen farfan [place] [facility] 06/28/2019 11:20:00 AM EDT - 06/28/2019 11:21:00 AM EDT MYASTHENIA GRAVIS [facility] MYASTHENIA GRAVIS Patient discharged. Outpatient<td ID="encounterTypeDescripti onID4">[Patient Encounter]</td><td>Ayden Renteria MD</td><td></td><td>05/20/2019</td><td>03/21/2019 4:25PM</td><td>03/21/2019 11:59PM</td><td></td> Attender: Ayden Renteria MD 0 04:25:00 PM EST - 03/21/2019 11:59:00 PM EST [facility] Outpatient<td ID="encounterTypeDescripti onID3">[Patient Encounter]</td><td>Rishi Guajardo PLATE SHEAR OPERATOR- BC</td><td></td><td>06/09/2019</td><td>03/21/2019 12:05PM</td><td>03/21/2019 11:59PM</td><td></td> Attender: RISHI GUAJARDO PLATE SHEAR OPERATOR 03/21/2019 12:05:00 PM EST - 03/21/2019 11:59:00 PM EST [facility] ([facility]) Outpatient Attender: Ayden Renteria MDConsultant: Matilde METZGER 03/21/2019 10:17:00 AM EST M16.11,E55.[address] [facility] M16.11,E55.9 Outpatient<td ID="encounterTypeDescripti onID5">followup</td><td>Ayden Renteria MD</td><td>[facility], [facility]</td><td>03/21/2019</td><td>9:18AM</td><td>9:57AM</td><td><content ID="encounterDiagnosisID5-0">Osteoarthritis Localized Primary Hip Right</content>, <content ID="encounterDiagnosisID5-1">Chronic Sinusitis</content>, <content ID="encounterDiagnosisID5-2">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</content>, <content ID="encounterDiagnosisID5-3">Myasthenia Gravis Without Acute Exacerbation</content>, <content ID="encounterDiagnosisID5-4">Pneumoconiosis - Asbestosis</content>, <content ID="encounterDiagnosisID5-5">Lung Neoplasm Malignant Adenocarcinoma</content></td> Attender: Ayden Renteria MD [facility], [facility] 03/21/2019 09:18:00 AM EST - 03/21/2019 09:57:00 AM ES T Chronic SinusitisOsteoarthritis Localized Primary Hip RightChronic SinusitisOsteoarthritis Localized Primary Hip RightChronic SinusitisOsteoarthritis Localized Primary Hip RightChronic SinusitisOsteo arthritis Localized Primary Hip RightPneumoconiosis - AsbestosisPneumoconiosis - AsbestosisPneumoconiosis - AsbestosisPneumoconiosis - AsbestosisLung Neoplasm Malignant AdenocarcinomaLung Neoplasm Malignant AdenocarcinomaLung Neoplasm Ma lignant AdenocarcinomaLung Neoplasm Malignant AdenocarcinomaMyasthenia Gravis Without Acute ExacerbationMyasthenia Gravis Without Acute ExacerbationMyasthenia Gravis Without Acute ExacerbationMyasthenia Gravis Without Acute Exacerbation 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 [facility] ([facility]) Chronic Sinusitis Osteoarthritis Localized Primary Hip Rig ht Chronic Sinusitis Osteoarthritis Localized Primary Hip Rig ht Chronic Sinusitis Osteoarthritis Localized Primary Hip Rig ht Chronic Sinusitis Osteoarthritis Localized Primary Hip Rig ht 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 Neoplasm Malignant Adenocarcinoma Lung Neoplasm Malignant Adenocarcinoma Myasthenia Gravis Without Acute Exacerba tion Myasthenia Gravis Without Acute Exacerba tion Myasthenia Gravis Without Acute Exacerba tion Myasthenia Gravis Without Acute Exacerba tion Diabetes Mellitus Diabetic Peripheral Ne uropathy Type 2 Diabetes Mellitus Diabetic Peripheral Ne uropathy Type 2 Diabetes Mellitus Diabetic Peripheral Ne uropathy Type 2 Diabetes Mellitus Diabetic Peripheral Ne uropathy Type 2 Medications Medication Brand Name Start Date Product Form Dose Route Admi nistrative Instructions Pharmacy Instructions Status Indications Reaction Description Data Source(s) Albuterol 0.83 MG/ML Inhalant Solution Albuterol Sulfate 0 04/04/2020 12:00:00 AM EST active [facility] ([facility]) ropinirole 1 MG Oral Tablet Ropinirole HCL 10/20/2019 12:00:00 AM EDT ORAL active [facility] ([facility], ) Aspirin 81 MG Chewable Tablet Aspirin 81 MG Oral Table t Chewable Aspirin 81 MG Oral Tablet Chewable 09/23/2019 12:00:00 AM EDT 1 active aspirin 81 MG Chewable Tablet [facility]) Terazosin 5 MG Oral Capsule Terazosin HCl 5 MG Oral Ca psule Terazosin HCl 5 MG Oral Capsule 09/23/2019 12:00:00 AM EDT 1 activ e terazosin 5 MG Oral Capsule [facility]) pantoprazole 40 MG Delayed Release Oral Tablet Pantoprazole Sodium 40 MG Oral Tablet Delayed Release Pantoprazole Sodium 40 MG Oral Tablet Delayed Release 09/23/2019 12:00:00 AM EDT 1 active pantoprazole 40 MG Delayed Release Oral Tablet [facility]) Famotidine 40 MG Oral Tablet Famotidine 40 MG Oral Tablet 12:00:00 AM EDT aborted famotidine 40 MG Oral Tablet [facility] ([facility]) Atenolol 25 MG Oral Tablet Atenolol 25 MG Oral Tablet 2019 12:00:00 AM EDT 1 active atenolol 25 MG Or al Tablet [facility] ([facility]) Ranitidine 300 MG Oral Tablet raNITIdine HCl 300 MG Or al Tablet raNITIdine HCl 300 MG Oral Tablet 06/06/2019 12:00:00 AM EDT 1 aborted ranitidine 300 MG Oral Tablet [facility] ([facility]) valsartan 160 MG Oral Tablet Valsartan 160 MG Oral Tab let Valsartan 160 MG Oral Tablet 05/20/2019 12:00:00 AM EDT 1 active valsartan 160 MG Oral Tablet [facility]) Amoxicillin 500 MG / Clavulanate 125 MG Oral Tablet Amoxicillin-Pot Clavulanate 500-125 MG Oral Tablet Amoxicillin-Pot Clavulanate 500-125 MG Oral Tablet 03/21/2019 12:00:00 AM EST 1 aborted amoxicillin 500 MG / clavulanate 125 MG Oral Tablet [facility]) Pyridostigmine [place] 60 MG Oral Tablet Pyridostigmin e [place] 60 MG Oral Tablet 03/21/2019 12:00:00 AM EST aborted pyridostigmine bromide 60 MG Oral Tablet [facility] ([facility]) Ranitidine 300 MG Oral Tablet raNITIdine HCl 300 MG Or al Tablet raNITIdine HCl 300 MG Oral Tablet 03/07/2019 12:00:00 AM EST 1 aborted ranitidine 300 MG Oral Tablet [facility]) OneTouch Verio In Vitro Strip OneTouch Verio In Vitro Strip 03/07/2019 12:00:00 AM EST active OneTouch Verio GR [facility] ([facility]) OneTouch Delica Lancets 33G Miscellaneous OneTouch Del ica Lancets 33G Miscellaneous 02/17/2019 12:00:00 AM EST acti ve OneTouch Delica Lancets 33G [facility] ([facility]) irbesartan 150 MG Oral Tablet Irbesartan 150MG Oral Ta blet Irbesartan 150MG Oral Tablet 02/17/2019 12:00:00 AM EST 1 aborted irbesartan 150 MG Oral Tablet [facility] ([facility]) Prednisone 20 MG Oral Tablet predniSONE 20MG Oral Tabl et predniSONE 20MG Oral Tablet 12/06/2018 12:00:00 AM EDT aborted prednisone 20 MG Oral Tablet [facility] ([facility]) Cefuroxime 500 MG Oral Tablet Cefuroxime Axetil 500MG Oral Tablet Cefuroxime Axetil 500MG Oral Tablet 12/06/2018 12:00:00 AM EDT 1 aborted cefuroxime 500 MG Oral Tablet [facility] ([facility]) Terazosin 5 MG Oral Capsule Terazosin HCl 5MG Oral Cap pam Terazosin HCl 5MG Oral Capsule 09/21/2018 12:00:00 AM EDT 1 abort ed terazosin 5 MG Oral Capsule [facility] ([facility]) Aspirin 81 MG Chewable Tablet Aspirin 81MG Oral Tablet Chewable Aspirin 81MG Oral Tablet Chewable 09/21/2018 12:00:00 AM EDT 1 aborted aspirin 81 MG Chewable Tablet [facility] ([facility]) Pyridostigmine [place] 60 MG Oral Tablet Pyridostigmine [place] 60MG Oral Tablet Pyridostigmine [place] 60MG Oral Tablet 08/12/2018 12:00:00 AM EDT 1 aborted pyridostigmine bromide 60 MG Ora l Tablet [facility] ([facility]) Atenolol 25 MG Oral Tablet Atenolol 25MG Oral Tablet Atenolo l 25MG Oral Tablet 06/11/2018 12:00:00 AM EDT 1 aborted atenolol 25 MG Oral Tablet [facility] ([facility]) OneTouch Ultra Blue STRP OneTouch Ultra Blue STRP 12/24 12:00:00 AM EST aborted OneTouch Ultra B lue [facility] ([facility]) OneTouch Delica Lancets Fine MISC OneTouch Delica Lancets Fi ne MISC 01/05/2014 12:00:00 AM EST aborted OneTouc h Delica Lancets Fine [facility] ([facility]) Insurance Providers Payer name Policy type / Coverage type Policy ID Covered libertarian ID Covered libertarian's relationship to gordillo Policy Gordillo Plan Information WELLCARE [id number] SP [id number] WELLCARE [id number] SP [id number] [facility] [place] [id number] S [id number] [facility] M[employer]UAL INSURANCE [id number] S [id number] WELLCARE [id number] S [id number] 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 COMP [id number] SP [id number] TODAYS OPTIONSDO NOT USE [id number] SP [id number] 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 COMP [id number] SP [id number] TODAYS OPTIONSDO NOT USE [id number] SP [id number] [place] [employer] WORKER COMP [id number] SP [id number] 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 COMP [id number] SP [id number] MEDICARE [id number] SP [id number] A [place] N[employer] WORKER COMP [id number] SP [id number] 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 COMP [id number] SP [id number] Wellcare Commercial [id number] Self [id number] [place] Workers Compensation [id number] Self [id number] [employer] [place] Commercial [id number] Self [id number] [place] [employer] Workers Compensation [id number] Self [id number] [facility] MUTUAL [id number] SP [id number] TODAYS OPTIONS [id number] SP [id number] Today's Options Commercial [id number] Self [id number] TODAYS OPTIONS [id number] SP [id number] [employer] [place] Commercial [id number] Self [id number] [place] National Workers Compensation [id number] Self [id number] [employer] [place] Commercial [id number] Self [id number] [place] [employer] WORKER COMP [id number] SP [id number] AMER PROG TODAYS OPTIONS G [id number] Self [id number] [employer] [employer] [place] Commercial [id number] Self [id number] Today's Options Ppo Commercial [id number] Self [id number] AMER PROG TODAYS OPTIONS G [id number] Self [id number] Today's Options Medicare Commercial [id number] Self [id number] TODAYS OPTIONS [id number] SP [id number] TODAYS OPTIONS -O/P [id number] 18 [id number] Problems, Conditions, and Diagnoses Code Display Name Description Problem Type Effective Dates Data Source(s) 96023799 Myasthenia gravis Myasthenia gravis Problem 04/04/2020 12:00:00 AM EST [facility] ([facility], ) [id number] Cough Cough Problem 04/04/2020 12:00:00 AM ES T [facility] ([facility], ) [id number] 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 08/11/2019 12:00:00 AM EDT [facility] ([facility], ) 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/2019 12:00:00 AM EDT [facility] ([facility], ) G70.00 Myasthenia gravis without (acute) exacer bation MYASTHENIA GRAVIS WITHOUT (ACUTE) EXACERBATION Diagnosis 06/28/2019 11:20:00 AM EDT [facility] Surgeries/Procedures Procedure Description Date Indications Data Source(s) Venipuncture (routine) Venipuncture (routine) 09/23/2019 12:00:00 A M [facility]) HgbA1C HgbA1C 09/23/2019 12:00:00 AM [facility]) CREATININE OTHER SOURCE Creatinine: URINE 09/23/2019 12:00:00 AM [facility]) Mircro Alb urine Mircro Alb urine 09/23/2019 12:00:00 AM [facility]) CBC CBC 09/23/2019 12:00:00 AM [facility]) CMP-Complete Metabolic Profile CMP-Complete Metabolic Profil e 09/23/2019 12:00:00 AM [facility]) Fasting Lipid Profile Fasting Lipid Profile 09/23/2019 12:00:00 AM [facility]) Urinalysis-Lab processed Urinalysis-Lab processed 09/23/2019 12:00: 00 AM [facility]) Annual wellness visit, includes a person alized prevention plan of service (pps), subsequent visit - subseq't annual wellness exam(1 yr after Initial) 09/23/2019 12:00:00 AM [facility]) Annual depression screening, 15 minutes MC-Annual depr ession screening- 15 min. (59) 09/23/2019 12:00:00 AM EDT [facility] ([facility]) Venipuncture (routine) Venipuncture (routine) 03/21/2019 12:00:00 A M EST [facility] ([facility]) CBC CBC 03/21/2019 12:00:00 AM EST [facility] ([facility]) CMP-Complete Metabolic Profile CMP-Complete Metabolic Profil e 03/21/2019 12:00:00 AM EST [facility] ([facility]) HgbA1C HgbA1C 03/21/2019 12:00:00 AM EST [facility] ([facility]) Results ID Date Data Source [id number] 04/11/2020 12:00:00 AM EST [facility] Name Value Range Interpretation Code Description Data Soumya rce(s) Supporting Document(s) SARS-CoV2 Rapid Antigen Positive [facility] This lab was ordered by [facility] and reported by [facility]. ID Date Data Source [id number] 04/04/2020 10:18:00 AM EST [facility] ([facility], ) Name Value Range Interpretation Code Description Data Soumya rce(s) Supporting Document(s) FVC-Pre 2.42 L [facility] ([facility], ) FVC-Pred 3.74 L [facility] ([facility]) PDFReport Laboratory test result [facility] ([facility], ) FVC-LLN 2.86 L [facility] ([facility], ) FVC-%Pred-Pre 64 L [facility] ([facility], ) Fev1-Pred 2.66 L [facility] ([facility]) Fev1-%Pred-Pre 57 L [facility] ([facility], ) Fev1-Pre 1.54 L [facility] ([facility]) Fev1-LLN 1.91 L [facility] ([facility]) Fev6-Pred 3.48 L [facility] ([facility]) Fev6-%Pred-Pre 69 L [facility] ([facility], ) Fev6-Pre 2.42 L [facility] ([facility], ) Zct9gvx-Nit 64 % [facility] ([facility]) Dqn9wdu-Yqfn 72 % [facility] ([facility]) Fev6-LLN 2.62 L [facility] ([facility]) Tka1lpo-Zxgp 93 % [facility] ([facility]) Hgu2cze-CTL 62 % [facility] ([facility]) Ffd5kua-%Pred-Pre 88 % [facility] ([facility]) Jbe9reh-Kap 100 % [facility] ([facility]) Qjg9vvd-%Pred-Pre 107 % [facility] ([facility]) FEFMax-Pred 6.91 L/E/sec [facility] ([facility]) FEFMax-%Pred-Pre 62 L/E/sec [facility] ([facility]) FEFMax-Pre 4.31 L/E/sec [facility] ([facility]) [id number]-Adw 0.79 L/E/sec [facility] ([facility]) Jwy4813-Kjpk 1.84 L/E/sec [facility] ([facility]) FEFMax-LLN 4.72 L/E/sec [facility] ([facility]) Nbl9258-RCI 0.33 L/E/sec [facility] ([facility]) ExpTime-Pre 5.64 sec [facility] ([facility]) Rxz9957-%Pred-Pre 43 L/E/sec [facility] ([facility]) Roh5pte5-%Pred-Pre 83 % [facility] ([facility]) Bxd4zlc1-Wtux 76 % [facility] ([facility]) Rgh5sns0-Xhf 64 % [facility] ([facility]) Jzp4gvr9-VZX 67 % [facility] ([facility]) ID Date Data Source [id number] 09/23/2019 09:37:00 AM ESTHER WAL[place] ([facility]) Name Value Range Interpretation Code Description Data Soumya rce(s) Supporting Document(s) Hemoglobin A1c/Hemoglobin.total in Blood 6.7 na Above high normal Hgba1c [facility] ([facility]) Note: Responsible Observer: KM ID Date Data Source [id number] 09/23/2019 09:37:00 AM EDT [facility] ([facility]) Name Value Range Interpretation Code Description Data Soumya rce(s) Supporting Document(s) Color of Exudate from wound Yellow N/A COLOR [facility] ([facility]) Note: Responsible Observer: KM Blood [Presence] in Urine by Visual Negative Fermin/uL BLOOD [facility] ([facility]) Note: Responsible Observer: KM Clarity of Pleural fluid from Fetus Clear N/A CLARITY [facility] ([facility]) Note: Responsible Observer: KM Ketones [Presence] in Blood by Tablet Negative N/A KETONES [facility] ([facility]) Note: Responsible Observer: KM LEUK Negative Filemon/uL LEUK [facility] ([facility]) Note: Responsible Observer: KM NITRITES Negative N/A NITRITES [facility]) Note: Responsible Observer: KM pH of Vaginal fluid by Test strip 6.0 N/A PH [facility] ([facility]) Note: Responsible Observer: KM URINE GLUCOSE Negative mg/dL URINE GLUCOSE [facility] ([facility]) Note: Responsible Observer: KM URINE BILI Negative N/A URINE BILI [facility] ([facility]) Note: Responsible Observer: KM Specific gravity of Pericardial fluid by Refractometry 1.010 N/A SPECIFIC GRAVITY [facility] ([facility]) Note: Responsible Observer: KM URINE PROTEIN Negative mg/dL URINE PROTEIN [place] [place] ([facility]) Note: Responsible Observer: KM Urobilinogen [Presence] in Urine by Automated test strip 0.2 EU/dL UROBILINOGEN [facility] ([facility]) Note: Responsible Observer: KM ID Date Data Source [id number] 09/23/2019 09:37:00 AM EDT [facility] ([facility]) Name Value Range Interpretation Code Description Data Soumya rce(s) Supporting Document(s) Cholesterol [Moles/volume] in Pericardial fluid 199 mg/dl Cholesterol [facility] ([facility]) Note: Responsible Observer: KM Dir. LDL 156 mg/dl Above high normal Dir. LDL ALFIE ([facility]) Note: Responsible Observer: KM Triglycerides 153 mg/dl Above high normal Triglycerides G REENWAY ([facility]) Note: Responsible Observer: KM HDL 38 mg/dl HDL [facility] ([facility]) Note: Responsible Observer: KM ID Date Data Source [id number] 09/23/2019 09:37:00 AM EDT [facility] ([facility]) Name Value Range Interpretation Code Description Data Soumya rce(s) Supporting Document(s) Alkaline Phos 55 IU/L Alkaline Phos [facility] ([facility]) Note: Responsible Observer: KM Albumin [Mass/volume] in Blood by Bromocresol purple ( BCP) dye binding method 4.5 g/dl Albumin [facility] ([facility]) Note: Responsible Observer: KM AST 21 IU/L AST [facility] ([facility]) Note: Responsible Observer: KM ALT 25 IU/L ALT [facility] ([facility]) Note: Responsible Observer: KM Urea nitrogen [Moles/volume] in Blood 12 mg/dl Urea Nitrogen [facility] ([facility]) Note: Responsible Observer: KM Chloride [Moles/volume] in Serum, Plasma or Blood 103 mmol/L Chloride [facility] ([facility]) Note: Responsible Observer: KM Calcium [Moles/volume] in Urine collected for unspecified durati on 9.8 mg/dl Calcium [facility] ([facility]) Note: Responsible Observer: KM EGFR - AfricanAm > 60 N/A EGFR - AfricanAm [facility] ([facility]) Note: Responsible Observer: KM Creatinine [Moles/volume] in Vitreous fluid 0.9 mg/dl Creatinine [facility] ([facility]) Note: Responsible Observer: KM CO2 27 mmol/L CO2 [facility] ([facility]) Note: Responsible Observer: KM EGFR - Non AF AM > 60 N/A EGFR - Non AF AM GR [facility] ([facility]) Note: Responsible Observer: KM Glucose [Mass/volume] in Urine collected for unspecified duratio n 136 mg/dl Above high normal Glucose [facility] ([facility]) Note: Responsible Observer: KM Sodium [Moles/volume] in Serum, Plasma or Blood 138 mmol/L Sodium [facility] ([facility]) Note: Responsible Observer: KM Potassium [Mass/volume] in Blood 4.4 mmol/L Pot assium [facility] ([facility]) Note: Responsible Observer: KM Total Bilirubin 0.5 mg/dl Total Bilirubin G[place] ([facility]) Note: Responsible Observer: KM Total Protein 6 g/dl Total Protein [facility] ([facility]) Note: Responsible Observer: KM ID Date Data Source [id number] 09/23/2019 09:37:00 AM EDT [facility] ([facility]) Name Value Range Interpretation Code Description Data Soumya rce(s) Supporting Document(s) GRAN# 4.3 /mm3 GRAN# [facility] ([facility]) Note: Responsible Observer: KM GRAN% 62.9 % GRAN% [facility] ([facility]) Note: Responsible Observer: KM HCT 37.2 % Below low normal HCT [facility] ([facility]) Note: Responsible Observer: KM HGB 12.9 g/dl HGB [facility] ([facility]) Note: Responsible Observer: KM LY# 2.0 /mm3 LY# [facility] ([facility]) Note: Responsible Observer: KM LY% 29.1 % LY% [facility] ([facility]) Note: Responsible Observer: KM MCH 32.5 pg MCH [facility] ([facility]) Note: Responsible Observer: KM MCHC 34.7 G/DL MCHC [facility] ([facility]) Note: Responsible Observer: KM MID# 0.6 /mm3 MID# [facility] ([facility]) Note: Responsible Observer: KM MCV 93.7 um3 MCV [facility] ([facility]) Note: Responsible Observer: KM MID% 8.0 % Above high normal MID% [facility] ([facility]) Note: Responsible Observer: KM MPV 9.7 um3 MPV [facility] ([facility]) Note: Responsible Observer: KM RBC 3.97 /mm3 Below low normal RBC [facility] ([facility]) Note: Responsible Observer: KM PLT 217 /mm3 PLT [facility] ([facility]) Note: Responsible Observer: KM WBC 6.9 /mm3 WBC [facility] ([facility]) Note: Responsible Observer: KM RDW 15.4 % Above high normal RDW [facility] ([facility]) Note: Responsible Observer: KM ID Date Data Source [id number] 09/23/2019 09:37:00 AM EDT [facility] ([facility]) Name Value Range Interpretation Code Description Data Soumya rce(s) Supporting Document(s) ACR - ug/mg ACR [facility] ([facility]) Note: Responsible Observer: KM Micro alb <5.0 mg/L Micro alb [facility] ([facility]) Note: Responsible Observer: KM Urine Creat 37.8 mg/dl Urine Creat [facility] ([facility]) Note: Responsible Observer: KM ID Date Data Source [id number] 07/27/2019 02:09:00 PM [facility] FAX RESULTS TO [phone] FAX RESULTS TO [phone] Name Value Range Interpretation Code Description Data Soumya rce(s) Supporting Document(s) Creatinine,Serum 0.8-1.5 Normal (applies to non-numeric results) [facility] GFR >60 Normal (applies to non-numeric results) [facility] ID Date Data Source [id number] 07/27/2019 02:09:00 PM [facility] FAX RESULTS TO [phone] FAX RESULTS TO [phone] Name Value Range Interpretation Code Description Data Soumya rce(s) Supporting Document(s) BUN 13 mg/dL 7-18 Normal (applies to non-numeric results) [facility] ID Date Data Source [id number] 06/28/2019 01:07:00 PM [facility] Name Value Range Interpretation Code Description Data Soumya rce(s) Supporting Document(s) Sodium 139 mmol/L 136-145 Normal (applies to non-numeric resul ts) [facility] Potassium 3.5-5.1 Normal (applies to non-numeric resul ts) [facility] Chloride 102 mmol/L 98-107 Normal (applies to non-numeric resul ts) [facility] Carbon Dioxide CO2 21-32 Normal (applies to non-numer ic results) [facility] Anion Gap 5.0-16.0 Normal (applies to non-numeric resul ts) [facility] BUN 13 mg/dL 7-18 Normal (applies to non-numeric results) [facility] Creatinine,Serum 0.8-1.5 Normal (applies to non-numeric results) [facility] GFR >60 Normal (applies to non-numeric results) [facility] Glucose Level 158 mg/dL 60-99 Above high normal [facility] Reference range is only applicable when patient is fasting Note the following drug interference: Sulfasalazine Sulfapyridine Can see falsely depressed Can see falsely elevated result with up to 17% results with up to 11% decrease in measurement increase in measurement Recommend patients be collected for this test prior to administration of either drug. Calcium 8.5-10.1 Below low normal [facility] spital Bilirubin,Total 0.1-1.9 Normal (applies to non-numeric results) [facility] SGOT(AST) 29 U/L 15-37 Normal (applies to non-numeric resul ts) [facility] Note the following drug interference: Sulfasalazine Sulfapyridine Can see falsely depressed Can see falsely elevated result with up to 10% results with up to 10% decrease in measurement increase in measurement Recommend patients be collected for this test prior to administration of either drug. SGPT(ALT) 37 U/L 12-78 Normal (applies to non-numeric resul ts) [facility] Note the following drug interference: Sulfasalazine Sulfapyridine Can see falsely depressed Can see falsely elevated result with up to 29% results with up to 10% decrease in measurement increase in measurement Recommend patients be collected for this test prior to administration of either drug. Alkaline Phosphatase 60 U/L 38-126 Normal (applies to non-num mahi results) [facility] can increase Alkaline Phosp le vels up to 2 times the normal adult value. Normal values for children and adolescents are 2 to 3 times the normal adult value. Total Protein 6.0-8.2 Normal (applies to non-numeric re sults) [facility] Albumin Level 3.4-5.0 Normal (applies to non-numeric re sults) [facility] ID Date Data Source [id number] 06/28/2019 11:37:00 AM EDT [facility] Name Value Range Interpretation Code Description Data Soumya rce(s) Supporting Document(s) White Blood Count 3.5-10.5 Normal (applies to non-numeri c results) [facility] Red Blood Count 4.30-5.70 Below low normal [facility] Hemoglobin 13.5-17.5 Below low normal [facility]spital Hematocrit 38.8-50.0 Below low normal [facility] Mean Corpuscular Volume 81.2-95.1 Normal (applies to non- numeric results) [facility] Mean Corpuscular Hgb 25.6-32.2 Normal (applies to non-num mahi results) [facility] Mean Corpuscular Hgb Conc 32.0-36.0 Normal (applies to no n-numeric results) [facility] Red Cell Distribution Width 11.8-15.6 Normal (appli es to non-numeric results) [facility] Platelet Count 239 x10 3/uL 150-450 Normal (applies to non-numeric results) [facility] Mean Platelet Volume 9.4-12.4 Normal (applies to non-num mahi results) [facility] Neutrophils% (Auto) 31.0-71.0 Normal (applies to non-nume katie results) [facility] Lymphocytes% (Auto) 20.0-55.0 Normal (applies to non-nume katie results) [facility] Monocytes% (Auto) 4.0-12.0 Normal (applies to non-numeri c results) [facility] Eosinophils% (Auto) 1.0-8.0 Normal (applies to non-nume katie results) [facility] Basophils% (Auto) 0.0-2.0 Normal (applies to non-numeri c results) [facility] Immature Granulocytes% (Auto) 0.0-2.0 Normal (asad lies to non-numeric results) [facility] Neutrophils# (Auto) 1.50-6.20 Normal (applies to non-nume katie results) [facility] Lymphocytes# (Auto) 1.20-4.00 Normal (applies to non-nume katie results) [facility] Monocytes# (Auto) 0.00-0.90 Normal (applies to non-numeri c results) [facility] Eosinophils# (Auto) 0.00-0.50 Normal (applies to non-nume katie results) [facility] Basophils# (Auto) 0.00-0.20 Normal (applies to non-numeri c results) [facility] Immature Granulocytes# (Auto) 0.00-7.00 No rmal (applies to non-numeric results) [facility] ID Date Data Source [id number] 03/22/2019 02:50:00 PM EST [facility] [address] [id number] [phone] NAME SEX PT STATUS ACCOUNT NUMBER EJ LAURENT REG REF [id number] ORDERING PHYSICIAN LOCATION MEDICAL RECORD NO. Ayden Renteria MD RAD [id number] ATTENDING PHYSICIAN DATE OF DATE OF EXAM/TIME Ayden Renteria MD 1940 03[birth year]21/191034 TYPE / EXAM XRAY HIP RT 2-3 VIEW REASON FOR EXAM M16.11-UNILATERAL PRIMARY OSTEOARTHRITIS, RT HIP COMPARISON: None FINDINGS: No displaced femoral neck fracture is seen. Visualized portions of the proximal coxa are imaged normally. There are no lytic or blastic osseous lesion. Prostate seeds are seen. IMPRESSION: No fracture, dislocation, or other significant abnormality. Reported By Mann Loo MD on 03/22/19 145 Signed By Mann Loo MD on 03/22/19 145 Date Time CC: Mann Loo MD; Ayden Renteria MD Techn: [facility] Trans Dt/Tm: Trans by: DT Prt Dt/Tm: [id number]: Total DLP = 0.00 mGy-cm Fluoroscopy Time (in secs): Name Value Range Interpretation Code Description Data Soumya rce(s) Supporting Document(s) ID Date Data Source [id number] 03/22/2019 07:06:00 AM [facility] Name Value Range Interpretation Code Description Data Soumya rce(s) Supporting Document(s) 25-Hydroxyvitamin D2+25-Hydroxyvitamin D3 [Mass/volume ] in Serum or Plasma 33.3 ng/mL 30.0-100.[address] [facility] Vitamin D deficiency has been defined by the [place] ofMedicine and an Endocrine Society practice guideline as alevel of serum 25-OH vitamin D less than 20 ng/mL (1,2).The Endocrine Society went on to further define vitamin Dinsufficiency as a level between 21 and 29 ng/mL (2).1. IOM ([place] of Medicine). 2010. Dietary reference intakes for calcium and D. Prakash [place]: The National Academies Press.2. Hany MF, Ivana TORRES, Cecilia BLANCO, et al. Evaluation, treatment, and prevention of vitamin D deficiency: an Endocrine Society clinical practice guideline. JCEM. 2010; 96(7):1911- 30.Performed at: RN - [facility] [place] [id number] Director: Lindy Amin MD, Phone: [phone] ID Date Data Source [id number] 03/21/2019 10:02:00 AM [facility] ([facility]) Name Value Range Interpretation Code Description Data Soumya rce(s) Supporting Document(s) Hemoglobin A1c/Hemoglobin.total in Blood 6.3 na Above high normal Hgba1c [facility] ([facility]) Note: Responsible Observer: GOVIND ID Date Data Source [id number] 03/21/2019 10:02:00 AM EST [facility] ([facility]) Name Value Range Interpretation Code Description Data Soumya rce(s) Supporting Document(s) Albumin [Mass/volume] in Blood by Bromocresol purple ( BCP) dye binding method 4.4 g/dl Albumin [facility]) Note: Responsible Observer: GOVIND Alkaline Phos 74 IU/L Alkaline Phos [facility] ([facility]) Note: Responsible Observer: KM Calcium [Moles/volume] in Urine collected for unspecified durati on 8.5 mg/dl Calcium [facility] ([facility]) Note: Responsible Observer: KM AST 17 IU/L AST [facility] ([facility]) Note: Responsible Observer: KM ALT 19 IU/L ALT [facility] ([facility]) Note: Responsible Observer: KM Urea nitrogen [Moles/volume] in Blood 14 mg/dl Urea Nitrogen [facility] ([facility]) Note: Responsible Observer: KM Chloride [Moles/volume] in Serum, Plasma or Blood 105 mmol/L Chloride [facility] ([facility]) Note: Responsible Observer: KM CO2 26 mmol/L CO2 [facility] ([facility]) Note: Responsible Observer: KM EGFR - AfricanAm > 60 N/A EGFR - AfricanAm [facility] Note: Responsible Observer: KM Creatinine [Moles/volume] in Vitreous fluid 0.9 mg/dl Creatinine [facility] ([facility]) Note: Responsible Observer: KM Sodium [Moles/volume] in Serum, Plasma or Blood 138 mmol/L Sodium [facility] ([facility]) Note: Responsible Observer: KM EGFR - Non AF AM > 60 N/A EGFR - Non AF AM [facility] ([facility]) Note: Responsible Observer: KM Glucose [Mass/volume] in Urine collected for unspecified duratio n 250 mg/dl Above high normal Glucose [facility] ([facility]) Note: Responsible Observer: KM Potassium [Mass/volume] in Blood 4.2 mmol/L Pot assium [facility] ([facility]) Note: Responsible Observer: KM Total Bilirubin 0.4 mg/dl Total Bilirubin [facility]) Note: Responsible Observer: KM Total Protein 5.9 g/dl Below low normal Total Protein [facility] ([facility]) Note: Responsible Observer: KM ID Date Data Source [id number] 03/21/2019 10:02:00 AM EST [facility] ([facility]) Name Value Range Interpretation Code Description Data Soumya rce(s) Supporting Document(s) GRAN% 69.9 % GRAN% [facility] ([facility]) Note: Responsible Observer: KM GRAN# 4.2 /mm3 GRAN# [facility] ([facility]) Note: Responsible Observer: KM LY# 1.4 /mm3 LY# [facility] ([facility]) Note: Responsible Observer: KM HCT 36.6 % Below low normal HCT [facility] ([facility]) Note: Responsible Observer: KM HGB 12.8 g/dl HGB [facility] ([facility]) Note: Responsible Observer: KM MCH 31.8 pg MCH [facility] ([facility]) Note: Responsible Observer: KM LY% 23.3 % Below low normal LY% [facility] ([facility]) Note: Responsible Observer: KM MCHC 34.9 G/DL MCHC [facility] ([facility]) Note: Responsible Observer: KM MID% 6.8 % MID% [facility] ([facility]) Note: Responsible Observer: KM MID# 0.4 /mm3 MID# [facility] ([facility]) Note: Responsible Observer: KM MCV 91.2 um3 MCV [facility] ([facility]) Note: Responsible Observer: KM RBC 4.01 /mm3 RBC [facility] ([facility]) Note: Responsible Observer: KM MPV 9.7 um3 MPV [facility] ([facility]) Note: Responsible Observer: KM RDW 16.0 % Above high normal RDW [facility] ([facility]) Note: Responsible Observer: KM PLT 211 /mm3 PLT [facility] ([facility]) Note: Responsible Observer: KM WBC 6.0 /mm3 WBC [facility] ([facility]) Note: Responsible Observer: KM ID Date Data Source [id number] 03/21/2019 10:02:00 AM EST [facility] ([facility]) Name Value Range Interpretation Code Description Data Soumya rce(s) Supporting Document(s) Reported Physicians See Note Reported Physici ans [facility] ([facility]) Note: Reported Physicians:Ordering: Atte nding: Kelly Renteriaonsulting: Manda, [place] To: Ayden Renteria ID Date Data Source [id number] 03/21/2019 10:02:00 AM EST [facility] ([facility]) Name Value Range Interpretation Code Description Data Soumya rce(s) Supporting Document(s) 25-Hydroxyvitamin D2+25-Hydroxyvitamin D3 [Mass/volume ] in Serum or Plasma 33.3 NanoGramsPerMilliLiter_[Mass_Concentration_Units] 25(OH)D2+25(OH)D3 [facility] ([facility]) Note: Vitamin D deficiency has been defi elvie by the [place] ofMedicine and an Endocrine Society practice guideline as alevel of serum 25-OH vitamin D less than 20 ng/mL (1,2).The Endocrine Society went on to further define vitamin Dinsufficiency as a level between 21 and 29 ng/mL (2).1. IOM ([place] of Medicine). 2010. Dietary reference intakes for calcium and D. [place]rakash [place]: The National Academies Press.2. Hany MF, Ivana OTRRES, Cecilia BLANCO, et al. Evaluation, treatment, and prevention of vitamin D deficiency: an Endocrine Society clinical practice guideline. JCEM. 2010; 96(7):1911- 30.Performed at: RN - [facility] [address] [id number] Director: Lindy Amin MD, Phone: [phone] Observer: Vitamin D 25-OH Vitamin D 25-Hydroxy 376556 446.0080 (I) Procedure Social History Code Duration Value Status Description Data Source(s ) Smoking 04/04/2020 12:00:00 AM EST Patient is a former smoker completed Patient is a former smoker [facility] ([facility]) Vital Signs ID Date Data Source UNK Name Value Range Interpretation Code Description Data Source(s) Body surface area Derived from formula 2.15 m2 2.15 m2 [facility] ([facility]) Body weight 102.514 kg 102.514 kg [facility] ([facility]) [place] body weight 154 [lb_av] 154 [lb_av] [facility] ([facility]) Body mass index (BMI) [Ratio] 34.4 kg/m2 34.4 k g/m2 [facility] ([facility]) Body weight 226.00 [lb_av] 226.00 [lb_av] [facility] ([facility]) Body height 68 [in_i] 68 [in_i] [facility] ([facility], ) 5'8" Body temperature 98.4 [degF] 98.4 [degF] [facility] ([facility], ) Oxygen saturation in Arterial blood by Pulse oximetry 93 % 93 % [facility] ([facility]) Heart rate 64 /min 64 /min [facility] ([facility], ) Diastolic blood pressure 80 mm[Hg] 80 mm[Hg] [facility] ([facility]) Systolic blood pressure 130 mm[Hg] 130 mm[Hg] M [facility] ([facility], ) Respiratory rate 16 /min 16 /min [facility] ( [facility], ) Heart rate 80 /min 80 /min [facility] ([facility]) Diastolic blood pressure 80 mm[Hg] 80 mm[Hg] [facility] ([facility], ) Systolic blood pressure 130 mm[Hg] 130 mm[Hg] [facility] ([facility], ) Body surface area Derived from formula 2.10 m2 2.10 m2 [facility] ([facility]) Body mass index (BMI) [Ratio] 35.4 kg/m2 35.4 k g/m2 [facility] ([facility]) Body weight 222.4 [lb_av] 222.4 [lb_av] [facility] ([facility]) Body height 66.5 [in_i] 66.5 [in_i] [facility] ([facility]) Respiratory rate 18 /min 18 /min [facility] ([facility]) Heart rate 60 /min 60 /min [facility] ([facility]) Diastolic blood pressure 70 mm[Hg] 70 mm[Hg] [facility] ([facility]) Systolic blood pressure 134 mm[Hg] 134 mm[Hg] G [facility] ([facility]) Body surface area Derived from formula 2.10 m2 2.10 m2 [facility] ([facility]) Body mass index (BMI) [Ratio] 35.4 kg/m2 35.4 k g/m2 [facility] ([facility]) Body weight 222.4 [lb_av] 222.4 [lb_av] [facility] ([facility]) Body height 66.5 [in_i] 66.5 [in_i] [facility] ([facility]) Respiratory rate 18 /min 18 /min [facility] ([facility]) Heart rate 60 /min 60 /min [facility] ([facility]) Diastolic blood pressure 70 mm[Hg] 70 mm[Hg] [facility] ([facility]) Systolic blood pressure 134 mm[Hg] 134 mm[Hg] [facility]) Body surface area Derived from formula 2.10 m2 2.10 m2 [facility] ([facility]) Body mass index (BMI) [Ratio] 35.3 kg/m2 35.3 k g/m2 [facility] ([facility]) Body weight 222 [lb_av] 222 [lb_av] [facility] ([facility]) Body height 66.5 [in_i] 66.5 [in_i] [facility]) Respiratory rate 18 /min 18 /min [facility] ([facility]) Heart rate 60 /min 60 /min [facility] ([facility]) Diastolic blood pressure 70 mm[Hg] 70 mm[Hg] [facility] ([facility]) Systolic blood pressure 134 mm[Hg] 134 mm[Hg] [facility]) Body surface area Derived from formula 2.15 m2 2.15 m2 [facility] ([facility], ) Body weight 102.514 kg 102.514 kg [facility] ([facility]) [place] body weight 154 [lb_av] 154 [lb_av] [facility] ([facility]) Body mass index (BMI) [Ratio] 34.4 kg/m2 34.4 k g/m2 [facility] ([facility], ) Body weight 226.00 [lb_av] 226.00 [lb_av] [facility] ([facility]) Body height 68 [in_i] 68 [in_i] [facility] ([facility]) 5'8" Body temperature 97.1 [degF] 97.1 [degF] [facility] ([facility]) Oxygen saturation in Arterial blood by Pulse oximetry 98 % 98 % [facility] ([facility], ) Heart rate 63 /min 63 /min [facility] ([facility]) Diastolic blood pressure 78 mm[Hg] 78 mm[Hg] [facility] ([facility], ) Systolic blood pressure 118 mm[Hg] 118 mm[Hg] [facility] ([facility], ) Body surface area Derived from formula 2.11 m2 2.11 m2 [facility]) Body mass index (BMI) [Ratio] 35.6 kg/m2 35.6 k g/m2 [facility] ([facility]) Body weight 224 [lb_av] 224 [lb_av] [facility] ([facility]) Body height 66.5 [in_i] 66.5 [in_i] [facility] ([facility]) Body temperature 97.9 [degF] 97.9 [degF] [facility] ([facility]) Heart rate 65 /min 65 /min [facility] ([facility]) Diastolic blood pressure 63 mm[Hg] 63 mm[Hg] [facility] ([facility]) Systolic blood pressure 148 mm[Hg] 148 mm[Hg] G [facility] ([facility]) Patient Treatment Plan of Care Planned Activity Planned Date Details Description Data Source (s) pantoprazole 40 MG Delayed Release Oral Tablet 09/23/2019 12:00:00 AM [facility] ([facility]) Terazosin 5 MG Oral Capsule 09/23/2019 12:00:00 AM [facility]) Famotidine 40 MG Oral Tablet 06/09/2019 12:00:00 AM [facility] ([facility]) Ranitidine 300 MG Oral Tablet 06/06/2019 12:00:00 AM [facility] ([facility]) Atenolol 25 MG Oral Tablet 06/06/2019 12:00:00 AM [facility]) valsartan 160 MG Oral Tablet 05/20/2019 12:00:00 AM [facility]) Amoxicillin 500 MG / Clavulanate 125 MG Oral Tablet 03/21/19 20 12:00:00 AM [facility] Ranitidine 300 MG Oral Tablet 03/07/2019 12:00:00 AM [facility]) OneTouch Verio In Vitro Strip 03/07/2019 12:00:00 AM [facility] ([facility]) irbesartan 150 MG Oral Tablet 02/17/2019 12:00:00 AM [facility] ([facility]) Jessica Ruiz Lancets 33G Miscellaneous 02/17/2019 12:00:00 AM [facility] ([facility]) Cefuroxime 500 MG Oral Tablet 12/06/2018 12:00:00 AM [facility]) Prednisone 20 MG Oral Tablet 12/06/2018 12:00:00 AM [facility] ([facility]) Terazosin 5 MG Oral Capsule 09/21/2018 12:00:00 AM [facility] ([facility]) Atenolol 25 MG Oral Tablet 06/11/2018 12:00:00 AM [facility] ([facility]) Jessica Petty Fine MISC 01/05/2014 12:00:00 AM [facility] ([facility]) Jessica Ultra Blue STRP 01/05/2014 12:00:00 AM [facility])
--- OUTSIDE RECORDS SUMMARY | 2020-04-17 20:26 | CCD | Continuity of Care Document ---
Author Author Jean Claude VELIZ DO Organization Unknown Address [address] [place] [address] Phone [phone] Care Team Providers Care Board Lining Machine Operator Name Role Phone Ayden Renteria M.D. AUT[facility] [phone] Areli Godwin MD [facility] [phone] Jaden Ramirez M.D. [facility] [phone] Cortez Thomas D.O. [facility] [phone] Radiology/Procedure [facility] Unavailable Problems Active Problems Provider [...] by mouth every day 180tabs Nidia Swenson, BOG CUTTER Immunizations Description No Information Available Vital Signs Date Vital Result Comment 04/04/2020 10:19am BP Systolic 130 mmHg BP Diastolic 80 mmHg Heart Rate 64 /min O2 % BldC Oximetry 93 % Body Temperature 98.4 F Height 68 inches 5'8" Weight 226.00 lb BMI (Body Mass Index) 34.4 kg/m2 [place] Body Weight 154 lb Weight 102.514 kg BSA (Body Surface Area) 2.15 m2 08/11/2019 8:29am BP Systolic 118 mmHg BP Diastolic 78 mmHg Heart Rate 63 /min O2 % BldC Oximetry 98 % Body Temperature 97.1 F Height 68 inches 5'8" Weight 226.00 lb BMI (Body Mass Index) 34.4 kg/m2 [place] Body Weight 154 lb Weight 102.514 kg [...] L Fev6-%Pred-Pre 69 L Fev6-LLN 2.62 L Aot2eng-Ruag 72 % Avg1cut-Dzx 64 % Spc4ysk-%Pred-Pre 88 % Dvx4vfx-XOZ 62 % Uun2zqe-Usgl 93 % Mtn4yex-Waj 100 % Mzx8cix-%Pred-Pre 107 % FEFMax-Pred 6.91 L/E/sec FEFMax-Pre 4.31 L/E/sec FEFMax-%Pred-Pre 62 L/E/sec FEFMax-LLN 4.72 L/E/sec Dlw7916-Zces 1.84 L/E/sec Rgm5927-Lea 0.79 L/E/sec Puy7219-%Pred-Pre 43 L/E/sec Ctc3926-NEM 0.33 L/E/sec ExpTime-Pre 5.64 sec Jiq6gmz1-Xwke 76 % Ujk9ysp7-Act 64 % Skz2zgt8-%Pred-Pre 83 % Lmq6csh6-OBT 67 % Procedures Description No Information Available [...]
--- OUTSIDE RECORDS SUMMARY | 2020-04-17 20:26 | CCD | Continuity of Care Document ---
Author Author Jean Claude GUZMAN PRosalesARosales-CRosales Organization Unknown Address [address] [place] [address] Phone [phone] Care Team Providers Care Manager Of Purchasing Name Role Phone Ayden Renteria M.D. AUTM [phone] Problems Active Problems Provider Date Difficulty chewing Areli Godwin M.D. Onset: 02/19/2017 Dysphagia Areli Godwin M.D. Onset: 02/19/2017 Social History Type Date Description Comments Sex Unknown Tobacco Use Start: Unknown End: Unknown Patient is a former smoker Allergies, Adverse Reactions, Alerts Active Allergies Reaction Severity Comments Date Codeine Rash 02/19/2017 Medications Active Medications SIG Qnty Indications Ordering Provide r Date Ropinirole HCL 1mg Tablets 1 po qhs 90tabs G25.81 Areli Godwin M.D. 10/20/2019 Prednisone 20mg Tablets Take 30MG Daily X3 Weeks, Then 20MG Daily X3 Weeks, Then 10MG Daily X3 Weeks, Then 5 MG Daily X3 Weeks Then 5MG Eod X7 Da7s 180angelique Godwin M.D. 03/20/2017 Methotrexate 2.5mg Tablets Take 3 Tablets Once Weekly 36angelique Godwin M.D. 03/19/2017 Mestinon 60mg Tablets 1 by mouth four times a day 360angelique Godwin M.D. 02/19/[address] 1 by mouth every day 90angelique Godwin M.D. Immunizations Description No Information Available Vital Signs Date Vital Result Comment 10/20/2019 9:01am BP Systolic 130 mmHg BP Diastolic 80 mmHg Heart Rate 80 /min Respiratory Rate 16 /min 01/11/2019 5:44am BP Systolic 118 mmHg BP Diastolic 80 mmHg Heart Rate 64 /min Respiratory Rate 16 /min Results Description No Information Available Procedures Description No Information Available Medical Devices Description No Information Available Encounters Type Date Location Provider Dx Diagnosis Office Visit 10/20/2019 9:00a Main office - [place] Belen haque P.A.-C. 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 01/31/2020 G60.9 Hereditary and idiopathic neurop athy, unspecified Belen Guzman P.A.-C. 01/31/2020 G70.00 Myasthenia gravis without (acute ) exacerbation Belen Guzman P.A.-C. 01/31/2020 M54.12 Radiculopathy, cervical region L peri Guzman P.A.-C. 01/31/2020 G56.03 Carpal tunnel syndrome, bilatera l upper limbs Belen Guzman P.A.-C. 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 10/20/2019 G70.00 Myasthenia gravis without (acute ) exacerbation Belen Guzman P.A.-C. 10/20/2019 G25.81 Restless legs syndrome Manisha EspinoA.-C. 10/20/2019 G60.9 Hereditary and idiopathic neurop athy, unspecified Belen Guzman P.A.-C. 10/20/2019 M54.12 Radiculopathy, cervical region L peri Guzman P.A.-C. 10/20/2019 G56.03 Carpal tunnel syndrome, bilatera l upper limbs Belen Guzman P.A.-C. 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 Plan of Treatment No Information Available Functional Status Description No Information Available Mental Status Description No Information Available Referrals Description No Information Available
--- OUTSIDE RECORDS SUMMARY | 2020-04-17 20:26 | CCD | Continuity of Care Document ---
Author Author Jean Claude VELIZ DO Organization Unknown Address [address] [place] [address] Phone [phone] Care Team Providers Care Prosthodontist Name Role Phone Ayden Renteria M.D. AUTM [phone] Areli Godwin MD AUTM [phone] Jaden Ramirez M.D. AUTM [phone] Cortez Thomas D.O. AUTM [phone] Radiology/Procedure AUTM Unavailable Problems Active Problems Provider Date Panacinar emphysema Cortez Thomas D.O. Onset: 03/17/2017 Ex-smoker Cortez Thomas D.O. Onset: 03/17/2017 Increased markings Cortez Thomas D.O. Onset: 03/17/2017 Pleurisy without effusion or active tuberculosis Cortez Thomas D.O. Onset: 03/17/2017 Malignant neoplasm of upper lobe, bronchus or lung Cortez yung D.O. 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 Smoking Status Reviewed: 04/04/20 Patient is a former smoker 1 ppd quit 1988 smoked for 30yr. Allergies, Adverse Reactions, Alerts Active Allergies Reaction Severity Comments Date Codeine 03/17/2017 Medications Active Medications SIG Qnty Indications Ordering Provide r Date Albuterol Sulfate (2 .5mg/3ML) 0.083% Nebulizer 1 vial four times a day as needed 360ml J43.1 Chapin Veliz, DO 04/04/2020 Ventolin HFA 108(90Base) mcg/Act A erosol 2 [...] by mouth every day 180tabs Nidia Swenson, HOSTAGE NEGOTIATOR Immunizations Description No Information Available Vital Signs Date Vital Result Comment 04/04/2020 10:19am BP Systolic 130 mmHg BP Diastolic 80 mmHg Heart Rate 64 /min O2 % BldC Oximetry 93 % Body Temperature 98.4 F Height 68 inches 5'8" Weight 226.00 lb BMI (Body Mass Index) 34.4 kg/m2 [place] Body Weight 154 lb Weight 102.514 kg BSA (Body Surface Area) 2.15 m2 08/11/2019 8:29am BP Systolic 118 mmHg BP Diastolic 78 mmHg Heart Rate 63 /min O2 % BldC Oximetry 98 % Body Temperature 97.1 F Height 68 inches 5'8" Weight 226.00 lb BMI (Body Mass Index) 34.4 kg/m2 [place] Body Weight 154 lb Weight 102.514 kg BSA (Body Surface Area) 2.15 m2 Results Test Acquired Date Facility Test Result H/L Range Note [facility] 04/04/2020 [facility] IMAGE FVC-Pred 3.74 L FVC-Pre 2.42 L FVC-%Pred-Pre 64 L FVC-LLN 2.86 L Fev1-Pred 2.66 L Fev1-Pre 1.54 L Fev1-%Pred-Pre 57 L Fev1-LLN 1.91 L Fev6-Pred 3.48 L Fev6-Pre 2.42 L Fev6-%Pred-Pre 69 L Fev6-LLN 2.62 L Ybt0xaf-Spux 72 % Bus1eau-Eqn 64 % Eam0lve-%Pred-Pre 88 % Jra3jqm-PYT 62 % Jrj7aud-Ihli 93 % Adf4rak-Hsb 100 % Jan9tig-%Pred-Pre 107 % FEFMax-Pred 6.91 L/E/sec FEFMax-Pre 4.31 L/E/sec FEFMax-%Pred-Pre 62 L/E/sec FEFMax-LLN 4.72 L/E/sec Oip7161-Qnwq 1.84 L/E/sec Ltp9608-Met 0.79 L/E/sec Fqn2934-%Pred-Pre 43 L/E/sec Sto1508-MEW 0.33 L/E/sec ExpTime-Pre 5.64 sec Qii8iph6-Opxd 76 % Rio8zbp9-Jxk 64 % Uoz9mxv0-%Pred-Pre 83 % Xmj6vhs1-FRH 67 % Procedures Description No Information Available Medical Devices Description No Information Available Encounters Type Date Location Provider Dx Diagnosis Office Visit 04/04/2020 10:30a [facility] D david Veliz, DO J62.0 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 d ust C34.12 Malignant neoplasm of upper lobe, left bronchus or lung J43.1 Panlobular emphysema G70.00 Myasthenia gravis without (a cute) exacerbation R05 Cough Assessments Date Code Description Provider 04/04/2020 J62.0 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 dust Chapin Veliz, DO 04/04/2020 C34.12 Malignant neoplasm of upper lobe , left bronchus or lung Chapin Veliz, DO 04/04/2020 J43.1 Panlobular emphysema Chapin figueroa, DO 04/04/2020 G70.00 Myasthenia gravis without (acute ) exacerbation Chapin Veliz, 04/04/2020 R05 Cough Chapin Veliz DO Plan of Treatment Future Appointment(s):* 08/08/2020 11:00 am - Chapin Veliz DO at [facility] * 08/08/2020 10:00 am - Pulmonary Lab at [facility] 04/04/2020 - Chapin Veliz DO* J62.0 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 This should improve his cough symptoms. We discussed the importance of maintenance of activity as best he is able for conditioning. ~ We have discussed the importance of infection surveillance. He is aware of signs and symptoms to watch for, and will call should they occur.~ We will schedule for home nebulized therapy q.i.d. as p.r.n., and his follow-up visit will be here in six months with a pulmonary function study. We will assess respiratory muscle strength with negative inspiratory and expiratory forced measures, and update a chest CT scan in light of his history of malignancy. * Follow up:* Neb in office Albuterol. Home nebs qid/prn. Follow up with CT and PFT with NIF/MEP in July please. Functional Status Functional Condition Comment Date Status Independent with all ADL's Activ e Mental Status Description No Information Available Referrals Description No Information Available
--- OUTSIDE RECORDS SUMMARY | 2020-04-17 20:26 | CCD | Continuity of Care Document ---
Author Author Jean Claude GUZMAN PRosalesARosales-CRosales Organization Unknown Address [address] [place] [address] Phone [phone] Care Team Providers Care Reporting Analyst Name Role Phone Ayden Renteria M.D. AUTM [phone] Problems Active Problems Provider Date Difficulty chewing [...] Tablets 1 po qhs 90tabs G25.81 Areli Godwni M.D. 10/20/2019 Prednisone 20mg Tablets Take 30MG [...] Date Location Provider Dx Diagnosis Office Visit 01/31/2020 9:15a Main office - [place] Manisha ErvinA.-CRosales G25.81 Restless legs syndrome G60.9 Hereditary and idiopathic ne uropathy, unspecified G70.00 Myasthenia gravis without (a cute) exacerbation M54.12 Radiculopathy, cervical zeny on G56.03 Carpal tunnel syndrome, bila teral upper limbs G56.23 Lesion of ulnar nerve, bilat eral upper limbs Office Visit 10/20/2019 9:00a Main office - [place] Dorie Ervin.A.-C. G70.00 Myasthenia gravis without (acute) exacer bation G25.81 Restless legs syndrome G60.9 Hereditary and idiopathic ne uropathy, unspecified M54.12 Radiculopathy, cervical zeny on G56.03 Carpal tunnel syndrome, bila teral upper limbs G56.23 Lesion of ulnar nerve, bilat eral upper limbs Assessments Date Code Description Provider 01/31/2020 G25.81 Restless legs syndrome Manisha EspinoARosales-CRosales 01/31/2020 G60.9 Hereditary and idiopathic neurop athy, unspecified Dorie Donaldson.A.-CRosales 01/31/2020 G70.00 Myasthenia gravis without (acute ) exacerbation Belen Guzman P.A.-C. 01/31/2020 M54.12 Radiculopathy, cervical region L peri Guzman P.A.-C. 01/31/2020 G56.03 Carpal tunnel syndrome, bilatera l upper limbs Belen Guzman P.A.-CRosales 01/31/2020 G56.23 Lesion of ulnar nerve, bilateral upper limbs Belen Guzman P.A.-C. 10/20/2019 G70.00 Myasthenia gravis without (acute ) exacerbation Dorie Donaldson.A.-C. 10/20/2019 G25.81 Restless legs syndrome Belen mendez P.A.-C. 10/20/2019 G60.9 Hereditary and idiopathic neurop athy, unspecified Belen Guzman P.A.-C. 10/20/2019 M54.12 Radiculopathy, cervical region L peri Guzman P.A.-C. 10/20/2019 G56.03 Carpal tunnel syndrome, bilatera l upper limbs Belen Guzman P.A.-C. 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 Plan of Treatment Future Appointment(s):* 05/02/2020 9:00 am - Belen Guzman P.A.-C. at Main office [facility] 01/31/2020 - Belen Guzman P.A.-C.* G25.81 Restless legs syndrome* Comments: * Improved. Continue Requip. * G60.9 Hereditary and idiopathic neuropathy, unspecified* Comments:* He feels that his symptoms are stable. He declines medication for neuropathy. * G70.00 Myasthenia gravis without (acute) exacerbation* Comments:* Continue Methotrexate. * M54.12 Radiculopathy, cervical region* Comments:* Stable. * G56.03 Carpal tunnel syndrome, bilateral upper limbs* Comments:* Improved. * G56.23 Lesion of ulnar nerve, bilateral upper limbs* Comments:* Improved. * Follow up:* 3 months Functional Status Description No Information Available Mental Status Description No Information Available Referrals Description No Information Available
--- OUTSIDE RECORDS SUMMARY | 2020-04-17 20:26 | CCD | Continuity of Care Document ---
Author Author Jean Claude VELIZ DO Organization Unknown Address [address] [place] [address] Phone [phone] Care Team Providers Care Draughtsman Name Role Phone Ayden Renteria M.D. AUTM [phone] Areli Godwin MD AUTM [phone] Jaden Ramirez M.D. AUTM [phone] Cortez Thomas D.O. AUTM [phone] Radiology/Procedure AUTM Unavailable Problems Active Problems Provider [...] by mouth every day 180tabs Nidia Swenson, FUNERAL ARRANGEMENT DIRECTOR Immunizations Description No Information Available Vital Signs Date Vital Result Comment 04/04/2020 10:19am BP Systolic 130 mmHg BP Diastolic 80 mmHg Heart Rate 64 /min O2 % BldC Oximetry 93 % Body Temperature 98.4 F Height 68 inches 5'8" Weight 226.00 lb BMI (Body Mass Index) 34.4 kg/m2 [place] Body Weight 154 lb Weight 102.514 kg BSA (Body Surface Area) 2.15 m2 08/11/2019 8:29am BP Systolic 118 mmHg BP Diastolic 78 mmHg Heart Rate 63 /min O2 % BldC Oximetry 98 % Body Temperature 97.1 F Height 68 inches 5'8" Weight 226.00 lb BMI (Body Mass Index) 34.4 kg/m2 [place] Body Weight 154 lb Weight 102.514 kg [...] L Fev6-%Pred-Pre 69 L Fev6-LLN 2.62 L Dni1wkz-Pokf 72 % Bvh0hdg-Zcz 64 % Jgm6oal-%Pred-Pre 88 % Stt3mdd-ETK 62 % Kkd4rix-Cbgv 93 % Dyr9gil-Xwn 100 % Aui5uwy-%Pred-Pre 107 % FEFMax-Pred 6.91 L/E/sec FEFMax-Pre 4.31 L/E/sec FEFMax-%Pred-Pre 62 L/E/sec FEFMax-LLN 4.72 L/E/sec Tgg0597-Fspg 1.84 L/E/sec Aiz4319-Usq 0.79 L/E/sec Jcc2810-%Pred-Pre 43 L/E/sec Svw1711-QHZ 0.33 L/E/sec ExpTime-Pre 5.64 sec Bzm8avm5-Wlsq 76 % Zzw8kjg1-Sbl 64 % Wdq4woq7-%Pred-Pre 83 % Qms9pee7-ZKN 67 % Procedures Description No Information Available [...]
[2020-04-17] MEDS ORDERED: ACETAMINOPHEN TAB 650MG DOSE (2X325MG) PO ONE (21:00)
[2020-04-17 21:41] LABS: BASO % 0.1 % (0.0-1.0); EOS % 0.1 % (0.0-3.0); HEMATOCRIT 36.3 % (42.0-52.0); HEMOGLOBIN 11.9 g/dl (13.5-17.5); LYMPH # 0.8 10^3/uL (1.5-5.0); LYMPH % 9.8 % (24.0-44.0); MEAN CORPUSCULAR HEMOGLOBIN 29.4 pg (27.0-33.0); MEAN CORPUSCULAR HGB CONC 32.8 g/dl (32.0-36.5); MEAN CORPUSCULAR VOLUME 89.6 fl (80.0-96.0); MONO # 0.7 10^3/uL (0.0-0.8); MONO % 8.9 % (2.0-8.0); NEUTROPHILS # 6.4 10^3/uL (1.5-8.5); NEUTROPHILS % 79.9 % (36.0-66.0); PLATELET COUNT, AUTOMATED 235 10^3/uL (150-450); RED BLOOD COUNT 4.05 10^6/uL (4.30-6.10); WHITE BLOOD COUNT 8.1 10^3/uL (4.0-10.0)
[2020-04-17 21:54] LABS: INR 1.09; PROTHROMBIN TIME 14.3 SECONDS (12.5-14.3)
[2020-04-17 21:56] LABS: D-DIMER QUANT 1084.53 ng/ml (<500)
[2020-04-17 22:05] LABS: ERYTHROCYTE SEDIMENTATION RATE 61 mm/hr (0-20)
[2020-04-17 22:17] LABS: ALBUMIN 3.1 GM/DL (3.2-5.2); ALT/SGPT 50 U/L (12-78); BILIRUBIN,DIRECT 0.2 MG/DL (0.0-0.2); BILIRUBIN,TOTAL 0.7 MG/DL (0.2-1.0); BLOOD UREA NITROGEN 23 MG/DL (7-18); CALCIUM LEVEL 8.4 MG/DL (8.8-10.2); CARBON DIOXIDE LEVEL 28 MEQ/L (21-32); CHLORIDE LEVEL 100 MEQ/L (98-107); CK-MB VALUE MASS 1.2 NG/ML (<3.6); CPK CREATINE PHOSPHOKINASE 283 U/L (39-308); CREATININE FOR GFR 1.31 MG/DL (0.70-1.30); FERRITIN 710 NG/ML (26-388); GLOMERULAR FILTRATION RATE 56.2 (>42); GLUCOSE, FASTING 95 MG/DL (70-100); LDH LACTATE DEHYDROGENASE 363 U/L (87-241); MB/CK RELATIVE INDEX 0.42 (< OR =4); NT-PRO BNP 628 PG/ML (<450); POTASSIUM SERUM 3.9 MEQ/L (3.5-5.1); SODIUM LEVEL 135 MEQ/L (136-145); THYROXINE (T4) 11.4 UG/DL (4.5-12.0); TOTAL PROTEIN 6.4 GM/DL (6.4-8.2); TROPONIN I < 0.02 NG/ML (< 0.10)
[2020-04-17] MEDS ORDERED: cefTRIAXone SOD 2 GM in D5W MINI-BAG PLUS 50 ML IV ONE (22:30)
[2020-04-17] MEDS ORDERED: dexameTHASONE 20MG/5ML VIAL (J1100 PER 1MG) IV ONE (22:30)
--- NOTE | 2020-04-17 22:58 | REPVR ---
PROCEDURE INFORMATION: Exam: XR Chest, 1 View Exam date and time: 04/17/2020 9:26 PM Age: 79 years old Clinical indication: Cough and dyspnea; Additional info: Dyspnea/cough/covid positive TECHNIQUE: Imaging protocol: XR of the chest Views: 1 view. COMPARISON: CT Chest with contrast 07/26/2019 1:59 PM FINDINGS: Lungs: Subtle patchy opacities in bilateral lungs representing infiltrates. Pleural spaces: Unremarkable. No pleural effusion. No pneumothorax. Heart/Mediastinum: Unremarkable. No cardiomegaly. Bones/joints: Unremarkable. IMPRESSION: Bilateral subtle patchy opacities representing infiltrates. Electronically signed by: Paulo Gonzalez On 04/17/2020 22:58:09 PM
--- NOTE | 2020-04-17 23:21 | HPEPDOC ---
[facility] Medical History & Physical Date of Admission Apr 17, 2020 Date of Service: Apr 18, 2020 Primary Care Physician: Ayden Renteria Attending Physician: MARCELINO JUAREZ MD History and Physical TIME OF SERVICE: 1203am CHIEF COMPLAINT: This 79 yr old M developed fatigue, fevers & muscle aches on Apr 07, was diagnosed with COVID 19 on Apr 11 by his PCP and received an infusion of bamlaniviab on Apr 12. Today his daughter brought him to the ER because he has persistent dyspnea and doesnt seem to be improving. The patient denied having worsening of his chronic left sided chest pain which he reports has been present since he had his lobectomy. His cough is stable. Per d/w the patients O2 sats dropped to the 80s while he was talking and improved to about 90% with2L of supplemental O2. 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 FAMILY HISTORY: Lung Cancer, DM ALLERGIES: Please see below. HOME MEDICATIONS: Please see below. PHYSICAL EXAMINATION: Vital Signs Date Time Temp Pulse Resp B/P (MAP) Pulse Ox O2 Delivery O2 Flow Rate FiO2 04/17/20 20:19 102.2 73 20 129/61 (83) 90 Room Air 04/17/20 21:30 2.0 GENERAL APPEARANCE: well nourished / well developed / NAD HEENT: NC in place CARDIOVASCULAR: RRR/NMRG LUNGS: CTAB / coughing ABDOMEN: obese MUSCULOSKELETAL: NCAT INTEGUMENT: not flushed / slightly pale NEUROLOGICAL:EOMI / hard of hearing / speech not dysarthric PSYCHIATRIC: A&O LABORATORY DATA: 04/17/20 21:18 Immature Granulocyte % (Auto) 1.2, Neutrophils (%) (Auto) 79.9H, Lymphocytes (%) (Auto) 9.8L, Monocytes (%) (Auto) 8.9H, Eosinophils (%) (Auto) 0.1, Basophils (%) (Auto) 0.1, Neutrophils # (Auto) 6.4, Lymphocytes # (Auto) 0.8L, Monocytes # (Auto) 0.7, Eosinophils # (Auto) 0.0, Basophils # (Auto) 0.0, Nucleated Red Blood Cells % (auto) 0.0, Erythrocyte Sedimentation Rate 61H, Prothrombin Time 14.3H, Prothromb Time International Ratio 1.09, D-Dimer, Quantitative 1084.53H, Anion Gap 7L, Glomerular Filtration Rate 56.2, Lactic Acid Level 1.1, Calcium Level 8.4L, Ferritin 710H, Total Bilirubin 0.7, Direct Bilirubin 0.2, Aspartate Amino Transf (AST/SGOT) 43H, Alanine Aminotransferase (ALT/SGPT) 50, Alkaline Phosphatase 46, Lactate Dehydrogenase 363H, Total Creatine Kinase 283, Creatine Kinase MB 1.2, Creatine Kinase MB Relative Index 0.42, Troponin I < 0.02, C-Reactive Protein, Quantitative 17.50H, FI-Tvf-D-Type Natriuretic Peptide 628H, Total Protein 6.4, Albumin 3.1L, Albumin/Globulin Ratio 0.9, Thyroid Stimulating Hormone (TSH) 1.420, Thyroxine (T4) 11.4 IMAGING: Chest xray IMPRESSION: Bilateral subtle patchy opacities representing infiltrates. MICROBIOLOGY: COVID 19 + 04/17/20 Blood Culture, Received Pending 04/17/20 Blood Culture, Received Pending ASSESSMENT: is a 79 yr old M w a hx of lung CA, prostate CA, myesthania gravis, NIDDM, HTN and talc pneumoconiosis who presented w c/o persistent dyspnea and cough despite being diagnosed with COVID 19 on Apr 07 and receiving bamlaniviab; he will be admitted for management of COVID-19 PNA. PLAN: 1 Bilateral COVID 19 PNA Plan: admit to medical floor / continuous pulse ox / supplemental O2 up to 3L with target O2 sats between 92-95% / contact & air borne precautions / he is not a candidate for Remdesivir bc the infection started over a week ago / for the dyspnea and hypoxemia I will order steroids with PPI and inhaled budesonide /for PNA I will start oral Levofloxacin / since he doesnt have SIRS criteria I will not order sputum cx, strep pneumo, legionella, mycoplasma, MRSA & will cancel the blood cx 2 SHU vs CKD 40% of pts w COVID develop SHU Monitor UOP / IVF / f/u renal panel, Phosphorus, Ulytes for FENa or FEUrea / renal US / hold nephrotoxic drugs 3 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 / Talc pneumoconiosis f/u w Pulm and Onc as scheduled 4 Myesthania gravis MTX / check folic acid (vitamin B 12) level 5 Essential HTN Atenolol / valsartan is on hold bc of SHU 6 NIDDM diabetic diet / f/u accuchecks / / hypoglycemia protocol / sliding scale insulin / hold oral anti-glycemic / f/u A1C (target A1C is 7.1 to 8.0%) 7 NN Anemia f/u Iron studies 7 stool occult 8 Class 2 obesity Complicates care The patient can f/u w his PCP for sleep apnea screening, mechanical engineer consult, to discuss staring Saxenda, which is indicated in patients with a BMI >27 with co- existing DM, HTN or dyslipidemia to help with weight control as an adjunct to exercise DVT px w Lovenox & ASA Dispo: home after at least 2 midnights stay Home Medications Scheduled Aspirin (Aspirin EC) 81 Mg Tablet.dr, 81 MG PO DAILY Atenolol (Atenolol) 25 Mg Tablet, 25 MG PO DAILY Cholecalciferol (Vitamin D3) (Vitamin D3) 50 Mcg Tablet, 50 MCG PO DAILY Famotidine (Famotidine) 40 Mg Tablet, 40 MG PO DAILY Glimepiride (Glimepiride) 1 Mg Tablet, 1 MG PO DAILY Methotrexate Sodium (Methotrexate) 2.5 Mg Tab, 7.5 MG PO 1XWK THURSDAY NIGHTS Pantoprazole Sodium (Pantoprazole Sodium) 40 Mg Tablet.dr, 40 MG PO DAILY Ropinirole HCl (Ropinirole HCl) 1 Mg Tablet, 1 MG PO QHS Terazosin HCl (Terazosin HCl) 5 Mg Cap, 5 MG PO QHS Valsartan (Valsartan) 160 Mg Tablet, 160 MG PO QHS Vit A/Vit C/Vit E/Zinc/Copper (Preservision Areds Softgel) 1 Each Capsule, 1 CAP PO DAILY Allergies Coded Allergies: codeine (Verified Allergy, Severe, ANAPHYLAXIS, 2/18/21) A-FIB/CHADSVASC A-FIB History Current/History of A-Fib/PAF?: No Current PO Anticoag Therapy: No MARCELINO JUAREZ MD Apr 17, 2020 23:21
[2020-04-17] MEDS ORDERED: MAALOX 30 ML SUSP *UDC PO PRN (23:30)
[2020-04-17] MEDS ORDERED: ACETAMINOPHEN TAB 650MG DOSE (2X325MG) PO PRN (23:30)
[2020-04-17] MEDS ORDERED: MOM 30ML SUSPENSION UDC PO PRN (23:30)
[2020-04-17 23:43] LABS: IRON (FE) 14 UG/DL (65-175); PERCENT SATURATION 6.4 % (19.7-50.0); PHOSPHORUS LEVEL 2.6 MG/DL (2.5-4.9); TOTAL IRON BINDING CAPACITY 220 UG/DL (250-450)
[2020-04-17 23:45] LABS: OSMOLALITY SERUM 281 MOSM/KG (280-301)
--- OUTSIDE RECORDS SUMMARY | 2020-04-18 00:08 | CCD ---
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 Name Role Phone Holman, Matilde PA Unavailable [...] Unavailable Trickey, J Belen PA Unavailable Unavailable Dorie Veliz DO Unavailable Unavailable [...] Chapin DO Unavailable Unavailable MUHA, M RISHI WINDOWS MOBILE DEVELOPER Unavailable Unavailable MUHA, M RISHI WINDOWS MOBILE DEVELOPER Unavailable Unavailable MUHA, M RISHI WINDOWS MOBILE DEVELOPER Unavailable Unavailable MUHA, M RISHI WINDOWS MOBILE DEVELOPER Unavailable Unavailable MUHA, M RISHI WINDOWS MOBILE DEVELOPER Unavailable Unavailable MUHA, M RISHI WINDOWS MOBILE DEVELOPER Unavailable Unavailable MUHA, M RISHI WINDOWS MOBILE DEVELOPER Unavailable Unavailable MUHA, M RISHI WINDOWS MOBILE DEVELOPER Unavailable Unavailable MUHA, M RISHI WINDOWS MOBILE DEVELOPER Unavailable Unavailable MUHA, M RISHI WINDOWS MOBILE DEVELOPER Unavailable Unavailable MUHA, M RISHI WINDOWS MOBILE DEVELOPER Unavailable Unavailable MUHA, M RISHI WINDOWS MOBILE DEVELOPER Unavailable Unavailable MUHA, M RISHI WINDOWS MOBILE DEVELOPER Unavailable Unavailable MUHA, M RISHI WINDOWS MOBILE DEVELOPER Unavailable Unavailable MUHA, M RISHI WINDOWS MOBILE DEVELOPER Unavailable Unavailable MUHA, M RISHI WINDOWS MOBILE DEVELOPER Unavailable Unavailable MUHA, M RISHI WINDOWS MOBILE DEVELOPER Unavailable Unavailable MUHA, M RISHI WINDOWS MOBILE DEVELOPER Unavailable Unavailable MUHA, M RISHI WINDOWS MOBILE DEVELOPER Unavailable Unavailable MUHA, M RISHI WINDOWS MOBILE DEVELOPER Unavailable Unavailable MUHA, M RISHI WINDOWS MOBILE DEVELOPER Unavailable Unavailable MUHA, M RISHI WINDOWS MOBILE DEVELOPER Unavailable Unavailable MUHA, M RISHI WINDOWS MOBILE DEVELOPER Unavailable Unavailable MUHA, M RISHI WINDOWS MOBILE DEVELOPER Unavailable Unavailable MUHA, M RISHI WINDOWS MOBILE DEVELOPER Unavailable Unavailable MUHA, M RISHI WINDOWS MOBILE DEVELOPER Unavailable Unavailable MUHA, M RISHI WINDOWS MOBILE DEVELOPER Unavailable Unavailable MUHA, M RISHI WINDOWS MOBILE DEVELOPER Unavailable Unavailable MUHA, M RISHI WINDOWS MOBILE DEVELOPER Unavailable Unavailable MUHA, M RISHI WINDOWS MOBILE DEVELOPER Unavailable Unavailable MUHA, M RISHI WINDOWS MOBILE DEVELOPER Unavailable Unavailable MUHA, M RISHI WINDOWS MOBILE DEVELOPER Unavailable Unavailable MUHA, M RISHI WINDOWS MOBILE DEVELOPER Unavailable Unavailable MUHA, M RISHI WINDOWS MOBILE DEVELOPER Unavailable Unavailable MUHA, M RISHI WINDOWS MOBILE DEVELOPER Unavailable Unavailable MUHA, M RISHI WINDOWS MOBILE DEVELOPER Unavailable Unavailable MUHA, M RISHI WINDOWS MOBILE DEVELOPER Unavailable Unavailable MUHA, M RISHI WINDOWS MOBILE DEVELOPER Unavailable Unavailable MUHA, M RISHI WINDOWS MOBILE DEVELOPER Unavailable Unavailable MUHA, M RISHI WINDOWS MOBILE DEVELOPER Unavailable Unavailable MUHA, M RISHI WINDOWS MOBILE DEVELOPER Unavailable Unavailable MUHA, M RISHI WINDOWS MOBILE DEVELOPER Unavailable Unavailable MUHA, M RISHI WINDOWS MOBILE DEVELOPER Unavailable Unavailable MUHA, M RISHI WINDOWS MOBILE DEVELOPER Unavailable Unavailable MUHA, M RISHI WINDOWS MOBILE DEVELOPER Unavailable Unavailable MUHA, M RISHI WINDOWS MOBILE DEVELOPER Unavailable Unavailable MUHA, M RISHI WINDOWS MOBILE DEVELOPER Unavailable Unavailable MUHA, M RISHI WINDOWS MOBILE DEVELOPER Unavailable Unavailable MUHA, M RISHI WINDOWS MOBILE DEVELOPER Unavailable Unavailable MUHA, M RISHI WINDOWS MOBILE DEVELOPER Unavailable Unavailable MUHA, M RISHI WINDOWS MOBILE DEVELOPER Unavailable Unavailable MUHA, M RISHI WINDOWS MOBILE DEVELOPER Unavailable Unavailable MUHA, M RISHI WINDOWS MOBILE DEVELOPER Unavailable Unavailable Bette Renteria MD Unavailable Unavailable [...] is protected by Article 27-F of the [facility] Public [employer] law. If you continue you may have access to information: Regarding HIV / AIDS; Provided by facilities licensed or operated by the [facility] Office of Mental Health; or Provided by the [facility] Office for People With Developmental Disabilities. If such information is present, then the following [facility] mandated warning applies: This information has been [...] law may result in a fine or correction sentence or both. A general authorization for the release of medical or other information is NOT sufficient authorization for further disc losure. Family History Family Member Name Family Member Gender Family Member Status Date o f Status Description Data Source(s) Unknown Unknown Problem [facility] ([facility]) Encounters Encounter Providers Location Date Indications Data Source(s ) Outpatient Attender: Chapin Alvarado/Haris/Jeremias/Raffi ravi 04/04/2020 09:30:00 AM EST [facility] ([facility] Office Visit Attender: Belen METZGER [place] 01/31/2020 08:15:00 AM EST [facility] ([facility]) Outpatient Attender: Belen METZGER [place] 10/20/2019 09:00:00 AM EDT MED[facility] ([facility], ) Outpatient<td ID="encounterTypeDescripti onID2">ANNUAL PE-followup exam</td><td>Ayden Renteria MD</td><td>[facility], [facility]</td><td>09/23/2019</td><td>10:03AM</td><td>11:32AM</td><td><content ID="encounterDiagnosisID2-0">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)</content></td> Attender: Ayden Renteria MD [facility], [facility] 09/23/2019 10:03:00 AM EDT - 09/23/2019 11:32:00 AM ED T 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) [place] ([facility]) Routine History and Physical Senior Citi lavon (65-80 Yrs) Outpatient<td ID="encounterTypeDescripti onID1">followup</td><td>Ayden Renteria MD</td><td>[facility], P</td><td>09/23/2019</td><td>10:03AM</td><td>11:32AM</td><td><content ID="encounterDiagnosisID1-0">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</content>, <content ID="encounterDiagnosisID1-1">Esophagitis Chronic Reflux</content>, <content ID="encounterDiagnosisID1-2">Myasthenia Gravis Without Acute Exacerbation</content>, <content ID="encounterDiagnosisID1- 3">Pneumoconiosis - Asbestosis</content>, <content ID="encounterDiagnosisID1- 4">Lung Neoplasm Malignant Adenocarcinoma</content>, <content ID="encounterDiagnosisID1-5">Essential Hypertension</content></td> Attender: Ayden Renteria MD [facility], [facility] 09/23/2019 10:03:00 A M EDT - 09/23/2019 11:32:00 AM EDT Pneumoconiosis - AsbestosisPneumoconiosi s - AsbestosisLung Neoplasm Malignant AdenocarcinomaLung Neoplasm Malignant AdenocarcinomaMyasthenia Gravis Without Acute ExacerbationMyasthenia Gravis Without Acute Exacerbation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Esophagitis Chronic RefluxEsophagitis Chronic RefluxEssential HypertensionEssential Hypertension [place] ([facility]) Pneumoconiosis - Asbestosis Pneumoconiosis - Asbestosis [...] SUBSEQUENT visi t(> 1yr since prev.</td><td>Ayden Renteria MD</td><td>[facility], [facility]</td><td>09/23/2019</td><td> 10:03AM</td><td>11:31AM</td><td><content ID="encounterDiagnosisID0-0">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)</content></td> Attender: Ayden Renteria MD [facility], [facility] 09/23/2019 10:03:00 A M EDT - 09/23/2019 11:31:00 AM EDT Routine History and Physical Senior Citi lavon (65-80 Yrs)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)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) [place] ([facility]) Routine History and Physical Senior Citi lavon (65-80 Yrs) Routine History and Physical Senior Citi lavon (65-80 Yrs) Routine History and Physical Senior Citi lavon (65-80 Yrs) Outpatient Attender: Chapin Alvarado/Haris/Jeremias/Raffi ndl 08/11/2019 09:30:00 AM EDT [facility] Outpatient 08/09/2019 05:35:00 AM EDT [facility] Radiology Imaging Outpatient Attender: [facility] Veliz [facility] 12:43:00 PM EDT - 07/27/2019 12:44:00 PM EDT [address] Patient discharged. Outpatient Attender: BETSY GuzmanAttender: Belen farfan KS [facility] 06/28/2019 11:20:00 AM EDT - 06/28/2019 11:21:00 AM EDT MYASTHENIA GRAVIS [facility] MYASTHENIA GRAVIS Patient discharged. Outpatient<td ID="encounterTypeDescripti onID4">[Patient Encounter]</td><td>Ayden Renteria MD</td><td></td><td>05/20/2019</td><td>03/21/2019 4:25PM</td><td>03/21/2019 11:59PM</td><td></td> Attender: Ayden Renteria MD 0 04:25:00 PM EST - 03/21/2019 11:59:00 PM EST [place] ([facility]) Outpatient<td ID="encounterTypeDescripti onID3">[Patient Encounter]</td><td>Rishi Guajardo WINDOWS MOBILE DEVELOPER- BC</td><td></td><td>06/09/2019</td><td>03/21/2019 12:05PM</td><td>03/21/2019 11:59PM</td><td></td> Attender: RISHI GUAJARDO WINDOWS MOBILE DEVELOPER 03/21/2019 12:05:00 PM EST - 03/21/2019 11:59:00 PM EST IRAM ([facility]) Outpatient Attender: Ayden Renteria MDConsultant: Matilde METZGER 03/21/2019 10:17:00 AM EST M16.11,E55.9 [facility] M16.11,E55.9 Outpatient<td ID="encounterTypeDescripti onID5">followup</td><td>Ayden Renteria MD</td><td>[facility], [facility]</td><td>03/21/2019</td><td>9:18AM</td><td>9:57AM</td><td><content ID="encounterDiagnosisID5-0">Osteoarthritis Localized Primary Hip Right</content>, <content ID="encounterDiagnosisID5-1">Chronic Sinusitis</content>, <content ID="encounterDiagnosisID5-2">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</content>, <content ID="encounterDiagnosisID5-3">Myasthenia Gravis Without Acute Exacerbation</content>, <content ID="encounterDiagnosisID5-4">Pneumoconiosis - Asbestosis</content>, <content ID="encounterDiagnosisID5-5">Lung Neoplasm Malignant Adenocarcinoma</content></td> Attender: Ayden Renteria MD [facility], [facility] 03/21/2019 09:18:00 AM EST - [...] 2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 [place] ([facility]) Chronic Sinusitis Osteoarthritis Localized Primary Hip [...] 0 04/04/2020 12:00:00 AM EST active [facility] ([facility]) ropinirole 1 MG Oral Tablet Ropinirole HCL 10/20/2019 12:00:00 AM EDT ORAL active MEDENT ([facility], ) Aspirin 81 MG Chewable Tablet Aspirin 81 MG Oral Table t Chewable Aspirin 81 MG Oral Tablet Chewable 09/23/2019 12:00:00 AM EDT 1 active aspirin 81 MG Chewable Tablet [facility]) Terazosin 5 MG Oral Capsule Terazosin HCl 5 MG Oral Ca psule Terazosin HCl 5 MG Oral Capsule 09/23/2019 12:00:00 AM EDT 1 activ e terazosin 5 MG Oral Capsule [facility]) pantoprazole 40 MG Delayed Release Oral Tablet Pantoprazole Sodium 40 MG Oral Tablet Delayed Release Pantoprazole Sodium 40 MG Oral Tablet Delayed Release 09/23/2019 12:00:00 AM EDT 1 active pantoprazole 40 MG Delayed Release Oral Tablet [facility]) Famotidine 40 MG Oral Tablet Famotidine 40 MG Oral Tablet 12:00:00 AM EDT aborted famotidine 40 MG Oral Tablet [facility]) Atenolol 25 MG Oral Tablet Atenolol 25 MG Oral Tablet 2019 12:00:00 AM EDT 1 active atenolol 25 MG Or al Tablet [facility]) Ranitidine 300 MG Oral Tablet raNITIdine HCl 300 MG Or al Tablet raNITIdine HCl 300 MG Oral Tablet 06/06/2019 12:00:00 AM EDT 1 aborted ranitidine 300 MG Oral Tablet [place] ([facility]) valsartan 160 MG Oral Tablet Valsartan 160 MG Oral Tab let Valsartan 160 MG Oral Tablet 05/20/2019 12:00:00 AM EDT 1 active valsartan 160 MG Oral Tablet [facility]) Amoxicillin 500 MG / Clavulanate 125 MG Oral Tablet Amoxicillin-Pot Clavulanate 500-125 MG Oral Tablet Amoxicillin-Pot Clavulanate 500-125 MG Oral Tablet 03/21/2019 12:00:00 AM EST 1 aborted amoxicillin 500 MG / clavulanate 125 MG Oral Tablet [facility]) Pyridostigmine Verden 60 MG Oral Tablet Pyridostigmin e Verden 60 MG Oral Tablet 03/21/2019 12:00:00 AM EST aborted pyridostigmine bromide 60 MG Oral Tablet [facility]) Ranitidine 300 MG Oral Tablet raNITIdine HCl 300 MG Or al Tablet raNITIdine HCl 300 MG Oral Tablet 03/07/2019 12:00:00 AM EST 1 aborted ranitidine 300 MG Oral Tablet [facility]) OneTouch Verio In Vitro Strip OneTouch Verio In Vitro Strip 03/07/2019 12:00:00 AM EST active [facility] irbesartan 150 MG Oral Tablet Irbesartan 150MG Oral Ta blet Irbesartan 150MG Oral Tablet 02/17/2019 12:00:00 AM EST 1 aborted irbesartan 150 MG Oral Tablet [facility]) Prednisone 20 MG Oral Tablet predniSONE 20MG Oral Tabl et predniSONE 20MG Oral Tablet 12/06/2018 12:00:00 AM EDT aborted prednisone 20 MG Oral Tablet [facility]) Cefuroxime 500 MG Oral Tablet Cefuroxime Axetil 500MG Oral Tablet Cefuroxime Axetil 500MG Oral Tablet 12/06/2018 12:00:00 AM EDT 1 aborted cefuroxime 500 MG Oral Tablet IR[facility] ([facility]) Terazosin 5 MG Oral Capsule Terazosin HCl 5MG Oral Cap pam Terazosin HCl 5MG Oral Capsule 09/21/2018 12:00:00 AM EDT 1 abort ed terazosin 5 MG Oral Capsule [place] ([facility]) Aspirin 81 MG Chewable Tablet Aspirin 81MG Oral Tablet Chewable Aspirin 81MG Oral Tablet Chewable 09/21/2018 12:00:00 AM EDT 1 aborted aspirin 81 MG Chewable Tablet [place] ([facility]) Pyridostigmine Verden 60 MG Oral Tablet Pyridostigmine Verden 60MG Oral Tablet Pyridostigmine Verden 60MG Oral Tablet 08/12/2018 12:00:00 AM EDT 1 aborted pyridostigmine bromide 60 MG Ora l Tablet [place] ([facility]) Atenolol 25 MG Oral Tablet Atenolol 25MG Oral Tablet Atenolo l 25MG Oral Tablet 06/11/2018 12:00:00 AM EDT 1 aborted atenolol 25 MG Oral Tablet [place] ([facility]) Insurance Providers Payer name Policy type / Coverage type Policy ID Covered democrat ID Covered democrat's relationship to gordillo Policy [place] Plan Information WELLCARE [id number] SP [id number] WELLCARE [id number] SP [id number] LIBERTY MUTUAL INS CO O [id number] S [id number] LIBERTY MUTUAL INSURANCE [id number] S [id number] WELLCARE [id number] S [id number] 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 COMP [id number] SP [id number] TODAYS OPTIONSDO NOT USE [id number] SP [id number] 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 COMP [id number] SP [id number] TODAYS OPTIONSDO NOT USE [id number] SP [id number] [place] [employer] WORKER COMP [id number] SP [id number] 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 COMP [id number] SP [id number] MEDICARE [id number] SP [id number] A [place] NATIONAL WORKER COMP [id number] SP [id number] 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 COMP [id number] SP [id number] Wellcare Commercial [id number] Self [id number] [place] Workers Compensation [id number] Self [id number] [employer] [place] Commercial [id number] Self [id number] [place] National Workers Compensation [id number] Self [id number] LIBERTY MUTUAL [id number] SP [id number] TODAYS OPTIONS [id number] SP [id number] Today's Options Commercial [id number] Self [id number] TODAYS OPTIONS [id number] SP [id number] [employer] [place] Commercial [id number] Self [id number] [place] National Workers Compensation [id number] Self [id number] [employer] [place] Commercial [id number] Self [id number] [facility] COMP [id number] SP [id number] AMER PROG TODAYS OPTIONS G [id number] Self [id number] [employer] [place] Commercial [id number] Self [id number] Today's Options Ppo Commercial [id number] Self [id number] AMER PROG TODAYS OPTIONS G [id number] Self [id number] Today's Options Medicare Commercial [id number] Self [id number] TODAYS OPT[place] [id number] SP [id number] TODAYS OPTIONS -O/P [id number] 18 [id number] Problems, Conditions, and Diagnoses Code Display Name Description Problem Type Effective Dates Data Source(s) 63342137 Myasthenia gravis Myasthenia gravis Problem 04/04/2020 12:00:00 AM EST [facility] ([facility], ) 70492890 Cough Cough Problem 04/04/2020 12:00:00 AM ES T MED[facility] ([facility], ) 80996152 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 08/11/2019 12:00:00 AM EDT [facility] ([facility], ) 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/2019 12:00:00 AM EDT MED[facility] ([facility], ) G70.00 Myasthenia gravis without (acute) exacer bation MYASTHENIA GRAVIS WITHOUT (ACUTE) EXACERBATION Diagnosis 06/28/2019 11:20:00 AM ED [facility] Surgeries/Procedures Procedure Description Date Indications Data Source(s) Venipuncture (routine) Venipuncture (routine) 09/23/2019 12:00:00 A M [facility] ([facility]) HgbA1C HgbA1C 09/23/2019 12:00:00 AM [facility] ([facility]) CREATININE OTHER SOURCE Creatinine: URINE 09/23/2019 12:00:00 AM ED [facility]) Mircro Alb urine Mircro Alb urine 09/23/2019 12:00:00 AM [facility]) CBC CBC 09/23/2019 12:00:00 AM [facility] ([facility]) CMP-Complete Metabolic Profile CMP-Complete Metabolic Profil e 09/23/2019 12:00:00 AM [facility]) Fasting Lipid Profile Fasting Lipid Profile 09/23/2019 12:00:00 AM [facility]) Urinalysis-Lab processed Urinalysis-Lab processed 09/23/2019 12:00: 00 AM [facility]) Annual wellness visit, includes a person alized prevention plan of service (pps), subsequent visit - subseq't annual wellness exam(1 yr after Initial) 09/23/2019 12:00:00 AM [facility]) Annual depression screening, 15 minutes -Annual depr ession screening- 15 min. (59) 09/23/2019 12:00:00 AM [facility] ([facility]) Venipuncture (routine) Venipuncture (routine) 03/21/2019 12:00:00 A [facility]) CBC CBC 03/21/2019 12:00:00 AM [facility] ([facility]) CMP-Complete Metabolic Profile CMP-Complete Metabolic Profil e 03/21/2019 12:00:00 AM [facility]) HgbA1C HgbA1C 03/21/2019 12:00:00 AM [facility]) Results ID Date Data Source [id number] 04/11/2020 12:00:00 AM EST [facility] Name Value Range Interpretation Code Description Data Soumya rce(s) Supporting Document(s) SARS-CoV2 Rapid Antigen Positive [facility] This lab was ordered by [facility] and reported by [facility]. ID Date Data Source [id number] 04/04/2020 10:18:00 AM EST MED[facility] ([facility], ) Name Value Range Interpretation Code Description Data Soumya rce(s) Supporting Document(s) FVC-Pre 2.42 L MEDENT ([facility], ) FVC-Pred 3.74 L [facility] ([facility]) PDFReport Laboratory test result MEDENT ([facility]) FVC-LLN 2.86 L [facility] ([facility]) FVC-%Pred-Pre 64 L MED[facility] ([facility]) Fev1-Pred 2.66 L [facility] ([facility]) Fev1-%Pred-Pre 57 L MED[facility] ([facility]) Fev1-Pre 1.54 L [facility] ([facility]) Fev1-LLN 1.91 L [facility] ([facility]) Fev6-Pred 3.48 L [facility] ([facility]) Fev6-%Pred-Pre 69 L [facility] ([facility]) Fev6-Pre 2.42 L [facility] ([facility]) Cvc8wuk-Shq 64 % [facility] ([facility]) Dgr7lbb-Ouoh 72 % [facility] ([facility]) Fev6-LLN 2.62 L [facility] ([facility]) Uxp6ucc-Imdb 93 % [facility] ([facility]) Cft0urm-PLZ 62 % [facility] ([facility]) Pwl0onj-%Pred-Pre 88 % [facility] ([facility]) Mow0oil-Dys 100 % [facility] ([facility]) Bjs1yty-%Pred-Pre 107 % [facility] ([facility], ) FEFMax-Pred 6.91 L/E/sec MED[facility] ([facility]) FEFMax-%Pred-Pre 62 L/E/sec [facility] ([facility]) FEFMax-Pre 4.31 L/E/sec [facility] ([facility], ) Zxg4054-Uhw 0.79 L/E/sec [facility] ([facility]) Sgj6585-Ukuv 1.84 L/E/sec MED[facility] ([facility]) FEFMax-LLN 4.72 L/E/sec MED[facility] ([facility]) Ngd8914-ICD 0.33 L/E/sec [facility] ([facility]) ExpTime-Pre 5.64 sec MED[facility] ([facility]) Wit7770-%Pred-Pre 43 L/E/sec MED[facility] ([facility]) Kbo0ufo3-%Pred-Pre 83 % MED[facility] ([facility]) Wrv7apc0-Aevc 76 % MED[facility] ([facility]) Qzk3udc0-Tub 64 % MED[facility] ([facility]) Vrp9cdm3-HOG 67 % MED[facility] ([facility]) ID Date Data Source [id number] 09/23/2019 09:37:00 AM EDT [place] ([facility]) Name Value Range Interpretation Code Description Data Soumya rce(s) Supporting Document(s) Hemoglobin A1c/Hemoglobin.total in Blood 6.7 na Above high normal Hgba1c [place] ([facility]) Note: Responsible Observer: KM ID Date Data Source [id number] 09/23/2019 09:37:00 AM EDT [place] ([facility]) Name Value Range Interpretation Code Description Data Soumya rce(s) Supporting Document(s) Color of Exudate from wound Yellow N/A COLOR [place] ([facility]) Note: Responsible Observer: KM Blood [Presence] in Urine by Visual Negative Fermin/uL BLOOD [place] ([facility]) Note: Responsible Observer: KM Clarity of Pleural fluid from Fetus Clear N/A CLARITY [facility] ([facility]) Note: Responsible Observer: KM Ketones [Presence] in Blood by Tablet Negative N/A KETONES [place] ([facility]) Note: Responsible Observer: KM LEUK Negative Filemon/uL LEUK IRAM ([facility]) Note: Responsible Observer: KM NITRITES Negative N/A NITRITES [facility] ([facility]) Note: Responsible Observer: KM pH of Vaginal fluid by Test strip 6.0 N/A PH [facility] ([facility]) Note: Responsible Observer: KM URINE GLUCOSE Negative mg/dL URINE GLUCOSE GREE [place] ([facility]) Note: Responsible Observer: KM URINE BILI Negative N/A URINE BILI [facility] ([facility]) Note: Responsible Observer: KM Specific gravity of Pericardial fluid by Refractometry 1.010 N/A SPECIFIC GRAVITY [place] ([facility]) Note: Responsible Observer: KM URINE PROTEIN Negative mg/dL URINE PROTEIN GREE NW ([facility]) Note: Responsible Observer: KM Urobilinogen [Presence] in Urine by Automated test strip 0.2 EU/dL UROBILINOGEN IR[facility] ([facility]) Note: Responsible Observer: KM ID Date Data Source [id number] 09/23/2019 09:37:00 AM EDT [place] ([facility]) Name Value Range Interpretation Code Description Data Soumya rce(s) Supporting Document(s) Cholesterol [Moles/volume] in Pericardial fluid 199 mg/dl Cholesterol [place] ([facility]) Note: Responsible Observer: KM Dir. LDL 156 mg/dl Above high normal Dir. LDL [facility] Note: Responsible Observer: KM Triglycerides 153 mg/dl Above high normal Triglycerides G REENWAY ([facility]) Note: Responsible Observer: KM HDL 38 mg/dl HDL [facility] ([facility]) Note: Responsible Observer: KM ID Date Data Source [id number] 09/23/2019 09:37:00 AM EDT [place] ([facility]) Name Value Range Interpretation Code Description Data Soumya rce(s) Supporting Document(s) Alkaline Phos 55 IU/L Alkaline Phos [facility] ([facility]) Note: Responsible Observer: KM Albumin [Mass/volume] in Blood by Bromocresol purple ( BCP) dye binding method 4.5 g/dl Albumin [facility] ([facility] [facility] Note: Responsible Observer: KM AST 21 IU/L AST IRAM ([facility]) Note: Responsible Observer: KM ALT 25 IU/L ALT [place] ([facility]) Note: Responsible Observer: KM Urea nitrogen [Moles/volume] in Blood 12 mg/dl Urea Nitrogen [place] ([facility]) Note: Responsible Observer: KM Chloride [Moles/volume] in Serum, Plasma or Blood 103 mmol/L Chloride [place] ([facility]) Note: Responsible Observer: KM Calcium [Moles/volume] in Urine collected for unspecified durati on 9.8 mg/dl Calcium [place] ([facility]) Note: Responsible Observer: KM EGFR - AfricanAm > 60 N/A EGFR - AfricanAm [facility] Note: Responsible Observer: KM Creatinine [Moles/volume] in Vitreous fluid 0.9 mg/dl Creatinine [place] ([facility]) Note: Responsible Observer: KM CO2 27 mmol/L CO2 [place] ([facility]) Note: Responsible Observer: KM EGFR - Non AF AM > 60 N/A EGFR - Non AF AM [facility]) Note: Responsible Observer: KM Glucose [Mass/volume] in Urine collected for unspecified duratio n 136 mg/dl Above high normal Glucose [place] ([facility]) Note: Responsible Observer: KM Sodium [Moles/volume] in Serum, Plasma or Blood 138 mmol/L Sodium [place] ([facility]) Note: Responsible Observer: KM Potassium [Mass/volume] in Blood 4.4 mmol/L Pot assium [place] ([facility]) Note: Responsible Observer: KM Total Bilirubin 0.5 mg/dl Total [facility] Note: Responsible Observer: KM Total Protein 6 g/dl Total Protein [place] ([facility]) Note: Responsible Observer: KM ID Date Data Source [id number] 09/23/2019 09:37:00 AM EDT [place] ([facility]) Name Value Range Interpretation Code Description Data Soumya rce(s) Supporting Document(s) GRAN# 4.3 /mm3 GRAN# IRAM ([facility]) Note: Responsible Observer: KM GRAN% 62.9 % GRAN% IRAM ([facility]) Note: Responsible Observer: KM HCT 37.2 % Below low normal HCT IRAM ([facility]) Note: Responsible Observer: KM HGB 12.9 g/dl HGB IRAM ([facility]) Note: Responsible Observer: KM LY# 2.0 /mm3 LY# IRAM ([facility]) Note: Responsible Observer: KM LY% 29.1 % LY% IRAM ([facility]) Note: Responsible Observer: KM MCH 32.5 pg MCH IRAM ([facility]) Note: Responsible Observer: KM MCHC 34.7 G/DL MCHC IRAM ([facility]) Note: Responsible Observer: KM MID# 0.6 /mm3 MID# IRAM ([facility]) Note: Responsible Observer: KM MCV 93.7 um3 MCV IRAM ([facility]) Note: Responsible Observer: KM MID% 8.0 % Above high normal MID% IRAM ([facility]) Note: Responsible Observer: KM MPV 9.7 um3 MPV IRAM ([facility]) Note: Responsible Observer: KM RBC 3.97 /mm3 Below low normal RBC IRAM ([facility]) Note: Responsible Observer: KM PLT 217 /mm3 PLT IRAM ([facility]) Note: Responsible Observer: KM WBC 6.9 /mm3 WBC IRAM ([facility]) Note: Responsible Observer: KM RDW 15.4 % Above high normal RDW IRAM ([facility]) Note: Responsible Observer: KM ID Date Data Source [id number] 09/23/2019 09:37:00 AM EDT IRAM ([facility]) Name Value Range Interpretation Code Description Data Soumya rce(s) Supporting Document(s) ACR - ug/mg ACR IRAM ([facility]) Note: Responsible Observer: KM Micro alb <5.0 mg/L Micro alb IRAM ([facility]) Note: Responsible Observer: KM Urine Creat 37.8 mg/dl Urine Creat IRAM ([facility]) Note: Responsible Observer: KM ID Date Data Source [id number] 07/27/2019 02:09:00 PM EDT [facility] FAX RESULTS TO [phone] FAX RESULTS TO [phone] Name Value Range Interpretation Code Description Data Soumya rce(s) Supporting Document(s) Creatinine,Serum 0.8-1.5 Normal (applies to non-numeric results) [facility] GFR >60 Normal (applies to non-numeric results) [facility] ID Date Data Source [id number] 07/27/2019 02:09:00 PM EDT [facility] FAX RESULTS TO [phone] FAX RESULTS TO [phone] Name Value Range Interpretation Code Description Data Soumya rce(s) Supporting Document(s) BUN 13 mg/dL 7-18 Normal (applies to non-numeric results) [facility] ID Date Data Source [id number] 06/28/2019 01:07:00 PM EDT [facility] Name Value Range Interpretation Code Description Data Soumya rce(s) Supporting Document(s) Sodium 139 mmol/L 136-145 Normal (applies to non-numeric resul ts) [facility] Potassium 3.5-5.1 Normal (applies to non-numeric resul ts) [facility] Chloride 102 mmol/L 98-107 Normal (applies to non-numeric resul ts) [facility] Carbon Dioxide CO2 21-32 Normal (applies to non-numer ic results) [facility] Anion Gap 5.0-16.0 Normal (applies to non-numeric resul ts) [facility] BUN 13 mg/dL 7-18 Normal (applies to non-numeric results) [facility] Creatinine,Serum 0.8-1.5 Normal (applies to non-numeric results) [facility] GFR >60 Normal (applies to non-numeric results) [facility] Glucose Level 158 mg/dL 60-99 Above high normal [facility] Reference range is only applicable when patient is fasting Note the following drug interference: Sulfasalazine Sulfapyridine Can see falsely depressed Can see falsely elevated result with up to 17% results with up to 11% decrease in measurement increase in measurement Recommend patients be collected for this test prior to administration of either drug. Calcium 8.5-10.1 Below low normal [facility] spital Bilirubin,Total 0.1-1.9 Normal (applies to non-numeric results) [facility] SGOT(AST) 29 U/L 15-37 Normal (applies to non-numeric resul ts) [facility] Note the following drug interference: Sulfasalazine Sulfapyridine Can see falsely depressed Can see falsely elevated result with up to 10% results with up to 10% decrease in measurement increase in measurement Recommend patients be collected for this test prior to administration of either drug. SGPT(ALT) 37 U/L 12-78 Normal (applies to non-numeric resul ts) [facility] Note the following drug interference: Sulfasalazine Sulfapyridine Can see falsely depressed Can see falsely elevated result with up to 29% results with up to 10% decrease in measurement increase in measurement Recommend patients be collected for this test prior to administration of either drug. Alkaline Phosphatase 60 U/L 38-126 Normal (applies to non-num mahi results) [facility] can increase Alkaline Phosp le vels up to 2 times the normal adult value. Normal values for children and adolescents are 2 to 3 times the normal adult value. Total Protein 6.0-8.2 Normal (applies to non-numeric re sults) [facility] Albumin Level 3.4-5.0 Normal (applies to non-numeric re sults) [facility] ID Date Data Source [id number] 06/28/2019 11:37:00 AM EDT [facility] Name Value Range Interpretation Code Description Data Soumya rce(s) Supporting Document(s) White Blood Count 3.5-10.5 Normal (applies to non-numeri c results) [facility] Red Blood Count 4.30-5.70 Below low normal [facility] Hemoglobin 13.5-17.5 Below low normal [facility] ospital Hematocrit 38.8-50.0 Below low normal [facility] Mean Corpuscular Volume 81.2-95.1 Normal (applies to non- numeric results) [facility] Mean Corpuscular Hgb 25.6-32.2 Normal (applies to non-num mahi results) [facility] Mean Corpuscular Hgb Conc 32.0-36.0 Normal (applies to no n-numeric results) [facility] Red Cell Distribution Width 11.8-15.6 Normal (appli es to non-numeric results) [facility] Platelet Count 239 x10 3/uL 150-450 Normal (applies to non-numeric results) [facility] Mean Platelet Volume 9.4-12.4 Normal (applies to non-num mahi results) [facility] Neutrophils% (Auto) 31.0-71.0 Normal (applies to non-nume katie results) [facility] Lymphocytes% (Auto) 20.0-55.0 Normal (applies to non-nume katie results) [facility] Monocytes% (Auto) 4.0-12.0 Normal (applies to non-numeri c results) [facility] Eosinophils% (Auto) 1.0-8.0 Normal (applies to non-nume katie results) [facility] Basophils% (Auto) 0.0-2.0 Normal (applies to non-numeri c results) [facility] Immature Granulocytes% (Auto) 0.0-2.0 Normal (asad lies to non-numeric results) [facility] Neutrophils# (Auto) 1.50-6.20 Normal (applies to non-nume katie results) [facility] Lymphocytes# (Auto) 1.20-4.00 Normal (applies to non-nume katie results) [facility] Monocytes# (Auto) 0.00-0.90 Normal (applies to non-numeri c results) [facility] Eosinophils# (Auto) 0.00-0.50 Normal (applies to non-nume katie results) [facility] Basophils# (Auto) 0.00-0.20 Normal (applies to non-numeri c results) [facility] Immature Granulocytes# (Auto) 0.00-7.00 No rmal (applies to non-numeric results) [facility] ID Date Data Source [id number] 03/22/2019 02:50:00 PM [facility] [address] [place] [address] [phone] NAME SEX PT STATUS ACCOUNT NUMBER EJ LAURENT REG REF [id number] ORDERING PHYSICIAN LOCATION MEDICAL RECORD NO. Ayden Renteria MD RAD [id number] ATTENDING PHYSICIAN DATE OF DATE OF EXAM/TIME [...] Reported By Mann Loo MD on 03/22/19 1450 Signed By Mann Loo MD on 03/22/19 1451 Date Time CC: Mann Loo MD; Ayden Renteria MD Techn: CARRC Trans Dt/Tm: Trans by: DT Prt Dt/Tm: [phone]: Total DLP = 0.00 mGy-cm Fluoroscopy Time (in secs): Name Value Range Interpretation Code Description Data Soumya rce(s) Supporting Document(s) ID Date Data Source [id number] 03/22/2019 07:06:00 AM [facility] Name Value Range Interpretation Code Description Data Soumya rce(s) Supporting Document(s) 25-Hydroxyvitamin D2+25-Hydroxyvitamin D3 [Mass/volume ] in Serum or Plasma 33.3 ng/mL 30.0-100.0 [facility] Vitamin D deficiency has been defined by the [place] and an Endocrine Society practice guideline as alevel of serum 25-OH vitamin D less than 20 ng/mL (1,2).The Endocrine Society went on to further define vitamin Dinsufficiency as a level between 21 and 29 ng/mL (2).1. IOM ([place]). 2010. Dietary reference intakes for calcium and D. [place]: The National Academies Press.2. Hany MF, Ivana NC, Cecilia BLANCO, et al. Evaluation, treatment, and prevention of vitamin D deficiency: an Endocrine Society clinical practice guideline. JCEM. 2010; 96(7):1911- 30.Performed at: RN - [facility] [place] [id number] Director: Lindy Amin MD, Phone: [phone] ID Date Data Source [id number] 03/21/2019 10:02:00 AM EST [place] ([facility]) Name Value Range Interpretation Code Description Data Soumya rce(s) Supporting Document(s) Hemoglobin A1c/Hemoglobin.total in Blood 6.3 na Above high normal Hgba1c [place] ([facility]) Note: Responsible Observer: KM ID Date Data Source [id number] 03/21/2019 10:02:00 AM EST [place] ([facility]) Name Value Range Interpretation Code Description Data Soumya rce(s) Supporting Document(s) Albumin [Mass/volume] in Blood by Bromocresol purple ( BCP) dye binding method 4.4 g/dl Albumin [place] ([facility]) Note: Responsible Observer: KM Alkaline Phos 74 IU/L Alkaline Phos [place] ([facility]) Note: Responsible Observer: KM Calcium [Moles/volume] in Urine collected for unspecified durati on 8.5 mg/dl Calcium [place] ([facility]) Note: Responsible Observer: KM AST 17 IU/L AST [place] ([facility]) Note: Responsible Observer: KM ALT 19 IU/L ALT [place] ([facility]) Note: Responsible Observer: KM Urea nitrogen [Moles/volume] in Blood 14 mg/dl Urea Nitrogen [place] ([facility]) Note: Responsible Observer: KM Chloride [Moles/volume] in Serum, Plasma or Blood 105 mmol/L Chloride [place] ([facility]) Note: Responsible Observer: KM CO2 26 mmol/L CO2 IRAM ([facility]) Note: Responsible Observer: KM EGFR - AfricanAm > 60 N/A EGFR - AfricanAm [facility] Note: Responsible Observer: KM Creatinine [Moles/volume] in Vitreous fluid 0.9 mg/dl Creatinine [place] ([facility]) Note: Responsible Observer: KM Sodium [Moles/volume] in Serum, Plasma or Blood 138 mmol/L Sodium [place] ([facility]) Note: Responsible Observer: KM EGFR - Non AF AM > 60 N/A EGFR - Non AF AM [facility] Note: Responsible Observer: KM Glucose [Mass/volume] in Urine collected for unspecified duratio n 250 mg/dl Above high normal Glucose [place] ([facility]) Note: Responsible Observer: KM Potassium [Mass/volume] in Blood 4.2 mmol/L Pot assium [place] ([facility]) Note: Responsible Observer: KM Total Bilirubin 0.4 mg/dl Total Bilirubin [facility] ([facility]) Note: Responsible Observer: KM Total Protein 5.9 g/dl Below low normal Total Protein [facility] ([facility]) Note: Responsible Observer: KM ID Date Data Source [id number] 03/21/2019 10:02:00 AM EST [place] ([facility]) Name Value Range Interpretation Code Description Data Soumya rce(s) Supporting Document(s) GRAN% 69.9 % GRAN% [place] ([facility]) Note: Responsible Observer: KM GRAN# 4.2 /mm3 GRAN# [place] ([facility]) Note: Responsible Observer: KM LY# 1.4 /mm3 LY# [place] ([facility]) Note: Responsible Observer: KM HCT 36.6 % Below low normal HCT [place] ([facility]) Note: Responsible Observer: KM HGB 12.8 g/dl HGB [place] ([facility]) Note: Responsible Observer: KM MCH 31.8 pg MCH [place] ([facility]) Note: Responsible Observer: KM LY% 23.3 % Below low normal LY% [place] ([facility]) Note: Responsible Observer: KM MCHC 34.9 G/DL MCHC [place] ([facility]) Note: Responsible Observer: KM MID% 6.8 % MID% IRAM ([facility]) Note: Responsible Observer: KM MID# 0.4 /mm3 MID# IRAM ([facility]) Note: Responsible Observer: KM MCV 91.2 um3 MCV IRAM ([facility]) Note: Responsible Observer: KM RBC 4.01 /mm3 RBC IRAM ([facility]) Note: Responsible Observer: KM MPV 9.7 um3 MPV IRAM ([facility]) Note: Responsible Observer: KM RDW 16.0 % Above high normal RDW IRAM ([facility]) Note: Responsible Observer: KM PLT 211 /mm3 PLT IRAM ([facility]) Note: Responsible Observer: KM WBC 6.0 /mm3 WBC IRAM ([facility]) Note: Responsible Observer: KM ID Date Data Source [id number] 03/21/2019 10:02:00 AM EST [place] ([facility]) Name Value Range Interpretation Code Description Data Soumya rce(s) Supporting Document(s) Reported Physicians See Note Reported Physici ans [place] ([facility]) Note: Reported Physicians:Ordering: Atte nding: Laly Renteriaulting: Virginia Holman To: Ayden Renteria ID Date Data Source [id number] 03/21/2019 10:02:00 AM [facility] ([facility]) Name Value Range Interpretation Code Description Data Soumya rce(s) Supporting Document(s) 25-Hydroxyvitamin D2+25-Hydroxyvitamin D3 [Mass/volume ] in Serum or Plasma 33.3 NanoGramsPerMilliLiter_[Mass_Concentration_Units] 25(OH)D2+25(OH)D3 SerPl-nc [place] ([facility]) Note: Vitamin D deficiency has been defi elvie by the [place] and an Endocrine Society practice guideline as alevel of serum 25-OH vitamin D less than 20 ng/mL (1,2).The Endocrine Society went on to further define vitamin Dinsufficiency as a level between 21 and 29 ng/mL (2).1. IOM ([place]). 2010. Dietary reference intakes for calcium and D. [facility]: The National Academies Press.2. Hany MF, Ivana [place], Cecilia BLANCO, et al. Evaluation, treatment, and prevention of vitamin D deficiency: an Endocrine Society clinical practice guideline. JCEM. 2010; 96(3):1911- 30.Performed at: - [facility] [address] [id number] Director: Lindy Amin MD, Phone: [phone] Observer: Vitamin D 25-OH Vitamin D 25-Hydroxy [id number] [phone] ([facility]) Procedure Social History Code Duration Value Status Description Data Source(s ) Smoking 04/04/2020 12:00:00 AM EST Patient is a former smoker completed Patient is a former smoker [facility] ([facility]) Vital Signs ID Date Data Source UNK Name Value Range Interpretation Code Description Data Source(s) Body surface area Derived from formula 2.15 m2 2.15 m2 [facility] ([facility]) Body weight 102.514 kg 102.514 kg [facility] ([facility]) [place] body weight 154 [lb_av] 154 [[facility]_av[facility] Body mass index (BMI) [Ratio] 34.4 kg/m2 34.4 k g/m2 [facility] ([facility]) Body weight 226.00 [lb_av] 226.00 [lb_av] [facility] Body height 68 [in_i] 68 [in_i] [facility] ([facility]) 5'8" Body temperature 98.4 [degF] 98.4 [degF] [facility] ([facility]) Oxygen saturation in Arterial blood by Pulse oximetry 93 % 93 % [facility] ([facility]) Heart rate 64 /min 64 /min [facility] ([facility]) Diastolic blood pressure 80 mm[Hg] 80 mm[Hg] [facility] ([facility]) Systolic blood pressure 130 mm[Hg] 130 mm[Hg] [facility] Respiratory rate 16 /min 16 /min [facility] ( [facility]) Heart rate 80 /min 80 /min [facility] ([facility]) Diastolic blood pressure 80 mm[Hg] 80 mm[Hg] [facility] ([facility]) Systolic blood pressure 130 mm[Hg] 130 mm[Hg] M EDENT ([facility] ) Body surface area Derived from formula 2.10 m2 2.10 m2 [place] ([facility]) Body mass index (BMI) [Ratio] 35.4 kg/m2 35.4 k g/m2 [place] ([facility]) Body weight 222.4 [lb_av] 222.4 [lb_av] [place] [facility] ([facility]) Body height 66.5 [in_i] 66.5 [in_i] [place] ([facility]) Respiratory rate 18 /min 18 /min [place] ([facility]) Heart rate 60 /min 60 /min [place] ([facility]) Diastolic blood pressure 70 mm[Hg] 70 mm[Hg] [place] ([facility]) Systolic blood pressure 134 mm[Hg] 134 mm[Hg] [facility] ([facility]) Body surface area Derived from formula 2.10 m2 2.10 m2 [place] ([facility]) Body mass index (BMI) [Ratio] 35.4 kg/m2 35.4 k g/m2 [place] ([facility]) Body weight 222.4 [lb_av] 222.4 [lb_av] [facility] ([facility]) Body height 66.5 [in_i] 66.5 [in_i] [place] ([facility]) Respiratory rate 18 /min 18 /min [place] ([facility]) Heart rate 60 /min 60 /min [place] ([facility]) Diastolic blood pressure 70 mm[Hg] 70 mm[Hg] [place] ([facility]) Systolic blood pressure 134 mm[Hg] 134 mm[Hg] [facility] ([facility]) Body surface area Derived from formula 2.10 m2 2.10 m2 [place] ([facility]) Body mass index (BMI) [Ratio] 35.3 kg/m2 35.3 k g/m2 [place] ([facility]) Body weight 222 [lb_av] 222 [lb_av] [place] ([facility]) Body height 66.5 [in_i] 66.5 [in_i] [place] ([facility]) Respiratory rate 18 /min 18 /min [place] ([facility]) Heart rate 60 /min 60 /min [place] ([facility]) Diastolic blood pressure 70 mm[Hg] 70 mm[Hg] [place] ([facility]) Systolic blood pressure 134 mm[Hg] 134 mm[Hg] [facility] ([facility]) Body surface area Derived from formula 2.15 m2 2.15 m2 [facility] ([facility]) Body weight 102.514 kg 102.514 kg [facility] ([facility]) [place] body weight 154 [lb_av] 154 [lb_av] [facility] Body mass index (BMI) [Ratio] 34.4 kg/m2 34.4 k g/m2 [facility] ([facility]) Body weight 226.00 [lb_av] 226.00 [lb_av] [facility] Body height 68 [in_i] 68 [in_i] [facility] ([facility]) 5'8" Body temperature 97.1 [degF] 97.1 [degF] [facility] ([facility]) Oxygen saturation in Arterial blood by Pulse oximetry 98 % 98 % [facility] ([facility]) Heart rate 63 /min 63 /min [facility] ([facility]) Diastolic blood pressure 78 mm[Hg] 78 mm[Hg] [facility] ([facility]) Systolic blood pressure 118 mm[Hg] 118 mm[Hg] [facility] Body surface area Derived from formula 2.11 m2 2.11 m2 [place] ([facility]) Body mass index (BMI) [Ratio] 35.6 kg/m2 35.6 k g/m2 [place] ([facility]) Body weight 224 [lb_av] 224 [lb_av] [place] ([facility]) Body height 66.5 [in_i] 66.5 [in_i] [place] ([facility]) Body temperature 97.9 [degF] 97.9 [degF] [facility] ([facility]) Heart rate 65 /min 65 /min [place] ([facility]) Diastolic blood pressure 63 mm[Hg] 63 mm[Hg] [place] ([facility]) Systolic blood pressure 148 mm[Hg] 148 mm[Hg] [facility] Patient Treatment Plan of Care Planned Activity Planned Date Details Description Data Source (s) pantoprazole 40 MG Delayed Release Oral Tablet 09/23/2019 12:00:00 AM [facility] ([facility]) Terazosin 5 MG Oral Capsule 09/23/2019 12:00:00 AM [facility] ([facility]) Famotidine 40 MG Oral Tablet 06/09/2019 12:00:00 AM [facility] ([facility]) Ranitidine 300 MG Oral Tablet 06/06/2019 12:00:00 AM [facility] ([facility]) Atenolol 25 MG Oral Tablet 06/06/2019 12:00:00 AM [facility] ([facility]) valsartan 160 MG Oral Tablet 05/20/2019 12:00:00 AM [facility] ([facility]) Amoxicillin 500 MG / Clavulanate 125 MG Oral Tablet 03/21/19 12:00:00 AM [facility] Ranitidine 300 MG Oral Tablet 03/07/2019 12:00:00 AM [facility]) OneTouch Verio In Vitro Strip 03/07/2019 12:00:00 AM [facility]) irbesartan 150 MG Oral Tablet 02/17/2019 12:00:00 AM [facility] ([facility]) Cefuroxime 500 MG Oral Tablet 12/06/2018 12:00:00 AM [facility]) Prednisone 20 MG Oral Tablet 12/06/2018 12:00:00 AM [facility] ([facility]) Terazosin 5 MG Oral Capsule 09/21/2018 12:00:00 AM [facility] ([facility]) Atenolol 25 MG Oral Tablet 06/11/2018 12:00:00 AM [facility] ([facility])
--- OUTSIDE RECORDS SUMMARY | 2020-04-18 00:12 | CCD ---
Author Author [facility] Organization [facility] Address Unknown Phone Unavailable Care Team Providers Care Social Media Director Name Role Phone Holman, Matilde PA Unavailable [...] Unavailable LynBette singh MD Unavailable Unavailable LynBette snigh MD Unavailable Unavailable LynBette singh MD Unavailable [...] Chapin DO Unavailable Unavailable MUHA, [employer] Unavailable Unavailable [employer], [employer] Unavailable Unavailable [employer], [employer] Unavailable Unavailable [employer], [employer] Unavailable Unavailable [employer], [employer] Unavailable Unavailable [employer], [employer] Unavailable Unavailable [employer], [employer] Unavailable Unavailable [employer], [employer] Unavailable Unavailable [employer], [employer] Unavailable Unavailable [employer], [employer] Unavailable Unavailable [employer], [employer] Unavailable Unavailable [employer], [employer] Unavailable Unavailable [employer], [employer] Unavailable Unavailable [employer], [employer] Unavailable Unavailable [employer], [employer] Unavailable Unavailable [employer], [employer] Unavailable Unavailable [employer], [employer] Unavailable Unavailable [employer], [employer] Unavailable Unavailable [employer], [employer] Unavailable Unavailable [employer], [employer] Unavailable Unavailable [employer], [employer] Unavailable Unavailable [employer], [employer] Unavailable Unavailable [employer], [employer] Unavailable Unavailable [employer], [employer] Unavailable Unavailable [employer], [employer] Unavailable Unavailable [employer], [employer] Unavailable Unavailable [employer], [employer] Unavailable Unavailable [employer], [employer] Unavailable Unavailable [employer], [employer] Unavailable Unavailable [employer], [employer] Unavailable Unavailable [employer], [employer] Unavailable Unavailable [employer], [employer] Unavailable Unavailable [employer], [employer] Unavailable Unavailable [employer], [employer] Unavailable Unavailable [employer], [employer] Unavailable Unavailable [employer], [employer] Unavailable Unavailable [employer], [employer] Unavailable Unavailable [employer], [employer] Unavailable Unavailable [employer], [employer] Unavailable Unavailable [employer], [employer] Unavailable Unavailable MUHA, M [employer]SIHI [employer] Unavailable Unavailable [employer], [employer] Unavailable Unavailable [employer], [employer] Unavailable Unavailable [employer], [employer] Unavailable Unavailable [employer], [employer] Unavailable Unavailable [employer], [employer] Unavailable Unavailable [employer], [employer] Unavailable Unavailable [employer], [employer] Unavailable Unavailable [employer], [employer] Unavailable Unavailable [employer], [employer] Unavailable Unavailable [employer], [employer] Unavailable Unavailable [employer], [employer] Unavailable Unavailable [employer] Unavailable Unavailable Bette Renteria MD Unavailable Unavailable [...] Unavailable LyndaBette garcia MD Unavailable Unavailable LynBette snigh MD Unavailable Unavailable LynBette singh MD Unavailable [...] is protected by Article 27-F of the [facility] Public Health law. If you continue you may have access to information: Regarding HIV / AIDS; Provided by facilities licensed or operated by the [facility] Office of Mental Health; or Provided by the [facility] Office for People With Developmental Disabilities. If such information is present, then the following [facility] mandated warning applies: This information has been [...] law may result in a fine or nursing home sentence or both. A general authorization for the release of medical or other information is NOT sufficient authorization for further disc losure. Family History Family Member Name Family Member Gender Family Member Status Date o f Status Description Data Source(s) Unknown Unknown Problem [facility] ([facility]) Encounters Encounter Providers Location Date Indications Data Source(s ) Outpatient Attender: Chapin Alvarado/Haris/Jeremias/Raffi ravi 04/04/2020 09:30:00 AM EST [facility] ([facility] Office Visit Attender: Belen METZGER [place] 01/31/2020 08:15:00 AM EST [facility] ([facility]) Outpatient Attender: Belen METZGER Main [place] 10/20/2019 09:00:00 AM EDT [facility] ([facility] ) Outpatient<td ID="encounterTypeDescripti onID2">ANNUAL PE-followup exam</td><td>Ayden Renteria MD</td><td>[facility], [facility]</td><td>09/23/2019</td><td>10:03AM</td><td>11:32AM</td><td><content ID="encounterDiagnosisID2-0">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)</content></td> Attender: Ayden Renteria MD [facility], 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 09/23/2019 10:03:00 A M EDT - 09/23/2019 11:32:00 AM EDT Pneumoconiosis - AsbestosisPneumoconiosi s - AsbestosisLung Neoplasm Malignant AdenocarcinomaLung Neoplasm Malignant AdenocarcinomaMyasthenia Gravis Without Acute ExacerbationMyasthenia Gravis Without Acute Exacerbation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Esophagitis Chronic RefluxEsophagitis Chronic RefluxEssential HypertensionEssential Hypertension [place] ([facility]) Pneumoconiosis - Asbestosis Pneumoconiosis - Asbestosis [...] SUBSEQUENT visi t(> 1yr since prev.</td><td>Ayden Renteria MD</td><td>[facility], [facility]</td><td>09/23/2019</td><td> 10:03AM</td><td>11:31AM</td><td><content ID="encounterDiagnosisID0-0">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)</content></td> Attender: Ayden Renteria MD [facility], [facility] 09/23/2019 10:03:00 A M EDT - 09/23/2019 11:31:00 AM EDT Routine History and Physical Senior Citi lavon (65-80 Yrs)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)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) [place] ([facility]) Routine History and Physical Senior Citi lavon (65-80 Yrs) Routine History and Physical Senior Citi lavon (65-80 Yrs) Routine History and Physical Senior Citi lavon (65-80 Yrs) Outpatient Attender: Chapin Alvarado/Haris/Jeremias/Raffi ndl 08/11/2019 09:30:00 AM [facility]T [facility] Outpatient 08/09/2019 05:35:00 AM EDT [facility] Imaging Outpatient Attender: Chapin Veliz DO [facility] 07/26 12:43:00 PM EDT - 07/27/2019 12:44:00 PM EDT [address] Patient discharged. Outpatient Attender: BETSY GuzmanAttender: Belen farfan FL [facility] 06/28/2019 11:20:00 AM EDT - 06/28/2019 11:21:00 AM EDT [facility] MYASTHENIA GRAVIS Patient discharged. Outpatient<td ID="encounterTypeDescripti onID4">[Patient Encounter]</td><td>Ayden Renteria MD</td><td></td><td>05/20/2019</td><td>03/21/2019 4:25PM</td><td>03/21/2019 11:59PM</td><td></td> Attender: Ayden Renteria MD 0 04:25:00 PM EST - 03/21/2019 11:59:00 PM EST [place] ([facility]) Outpatient<td ID="encounterTypeDescripti onID3">[Patient Encounter]</td><td>[employer] [facility]</td><td></td><td>06/09/2019</td><td>03/21/2019 12:05PM</td><td>03/21/2019 11:59PM</td><td></td> Attender: [employer] 03/21/2019 12:05:00 PM EST - 03/21/2019 11:59:00 PM EST [place] ([facility]) Outpatient Attender: Ayden Renteria MDConsultant: Matilde METZGER 03/21/2019 10:17:00 AM EST M16.11,E55.9 [facility] M16.11,E55.9 Outpatient<td ID="encounterTypeDescripti onID5">followup</td><td>Ayden Renteria MD</td><td>[facility], 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 03/21/2019 09:18:00 AM EST - 03/21/2019 09:57:00 [...] 2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 [place] ([facility]) Chronic Sinusitis Osteoarthritis Localized Primary Hip [...] 0 04/04/2020 12:00:00 AM EST active [facility] ([facility]) ropinirole 1 MG Oral Tablet Ropinirole HCL 10/20/2019 12:00:00 AM EDT ORAL active [facility] ([facility], ) Aspirin 81 MG Chewable Tablet Aspirin 81 MG Oral Table t Chewable Aspirin 81 MG Oral Tablet Chewable 09/23/2019 12:00:00 AM EDT 1 active aspirin 81 MG Chewable Tablet [facility]) Terazosin 5 MG Oral Capsule Terazosin HCl 5 MG Oral Ca psule Terazosin HCl 5 MG Oral Capsule 09/23/2019 12:00:00 AM EDT 1 activ e terazosin 5 MG Oral Capsule [facility]) pantoprazole 40 MG Delayed Release Oral Tablet Pantoprazole Sodium 40 MG Oral Tablet Delayed Release Pantoprazole Sodium 40 MG Oral Tablet Delayed Release 09/23/2019 12:00:00 AM EDT 1 active pantoprazole 40 MG Delayed Release Oral Tablet [facility]) Famotidine 40 MG Oral Tablet Famotidine 40 MG Oral Tablet 12:00:00 AM EDT aborted famotidine 40 MG Oral Tablet [facility]) Atenolol 25 MG Oral Tablet Atenolol 25 MG Oral Tablet 2019 12:00:00 AM EDT 1 active atenolol 25 MG Or al Tablet [facility]) Ranitidine 300 MG Oral Tablet raNITIdine HCl 300 MG Or al Tablet raNITIdine HCl 300 MG Oral Tablet 06/06/2019 12:00:00 AM EDT 1 aborted ranitidine 300 MG Oral Tablet [place] ([facility]) valsartan 160 MG Oral Tablet Valsartan 160 MG Oral Tab let Valsartan 160 MG Oral Tablet 05/20/2019 12:00:00 AM EDT 1 active valsartan 160 MG Oral Tablet [facility]) Amoxicillin 500 MG / Clavulanate 125 MG Oral Tablet Amoxicillin-Pot Clavulanate 500-125 MG Oral Tablet Amoxicillin-Pot Clavulanate 500-125 MG Oral Tablet 03/21/2019 12:00:00 AM EST 1 aborted amoxicillin 500 MG / clavulanate 125 MG Oral Tablet [facility]) Pyridostigmine [place] 60 MG Oral Tablet Pyridostigmin e [place] 60 MG Oral Tablet 03/21/2019 12:00:00 AM EST aborted pyridostigmine bromide 60 MG Oral Tablet [facility]) Ranitidine 300 MG Oral Tablet raNITIdine HCl 300 MG Or al Tablet raNITIdine HCl 300 MG Oral Tablet 03/07/2019 12:00:00 AM EST 1 aborted ranitidine 300 MG Oral Tablet [facility]) OneTouch Verio In Vitro Strip OneTouch Verio In Vitro Strip 03/07/2019 12:00:00 AM EST active [facility] irbesartan 150 MG Oral Tablet Irbesartan 150MG Oral Ta blet Irbesartan 150MG Oral Tablet 02/17/2019 12:00:00 AM EST 1 aborted irbesartan 150 MG Oral Tablet [facility]) Prednisone 20 MG Oral Tablet predniSONE 20MG Oral Tabl et predniSONE 20MG Oral Tablet 12/06/2018 12:00:00 AM EDT aborted prednisone 20 MG Oral Tablet [facility]) Cefuroxime 500 MG Oral Tablet Cefuroxime Axetil 500MG Oral Tablet Cefuroxime Axetil 500MG Oral Tablet 12/06/2018 12:00:00 AM EDT 1 aborted cefuroxime 500 MG Oral Tablet [place] ([facility]) Terazosin 5 MG Oral Capsule Terazosin HCl 5MG Oral Cap pam Terazosin HCl 5MG Oral Capsule 09/21/2018 12:00:00 AM EDT 1 abort ed terazosin 5 MG Oral Capsule [place] ([facility]) Aspirin 81 MG Chewable Tablet Aspirin 81MG Oral Tablet Chewable Aspirin 81MG Oral Tablet Chewable 09/21/2018 12:00:00 AM EDT 1 aborted aspirin 81 MG Chewable Tablet [place] ([facility]) Pyridostigmine [place] 60 MG Oral Tablet Pyridostigmine [place] 60MG Oral Tablet Pyridostigmine [place] 60MG Oral Tablet 08/12/2018 12:00:00 AM EDT 1 aborted pyridostigmine bromide 60 MG Ora l Tablet [place] ([facility]) Atenolol 25 MG Oral Tablet Atenolol 25MG Oral Tablet Atenolo l 25MG Oral Tablet 06/11/2018 12:00:00 AM EDT 1 aborted atenolol 25 MG Oral Tablet [place] ([facility]) Insurance Providers Payer name Policy type / Coverage type Policy ID Covered alliance party ID Covered alliance party's relationship to gordillo Policy [place] Plan Information WELLCARE [id number] SP [id number] WELLCARE [id number] SP [id number] LIBERTY MUTUAL INS [place] O [id number] S [id number] LIBERTY MUTUAL INSURANCE [id number] S [id number] WELLCARE [id number] S [id number] 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 COMP [id number] SP [id number] TODAYS OPTIONSDO NOT USE [id number] SP [id number] 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 COMP [id number] SP [id number] TODAYS OPTIONSDO NOT USE [id number] SP [id number] [place] N[place] WORKER COMP [id number] SP [id number] 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 COMP [id number] SP [id number] MEDICARE [id number] SP [id number] A [place] NATIONAL WORKER COMP [id number] SP [id number] 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 COMP [id number] SP [id number] Wellcare Commercial [id number] Self [id number] Mobile Portal Workers Compensation [id number] Self [id number] [place] [employer] [place] Commercial [id number] Self [id number] [place] [employer] Workers Compensation [id number] Self [id number] LIBERTY MUTUAL [id number] SP [id number] TODAYS OPTIONS [id number] SP [id number] Today's Options Commercial [id number] Self [id number] TODAYS OPTIONS [id number] SP [id number] [employer] [place] Commercial [id number] Self [id number] [place] [employer] Workers Compensation [id number] Self [id number] [employer] [place] Commercial [id number] Self [id number] [facility] COMP [id number] SP [id number] AMER PROG TODAYS OPTIONS G [id number] Self [id number] [employer] [place] Commercial [id number] Self [id number] Today's Options Ppo Commercial [id number] Self [id number] AMER PROG TODAYS OPTIONS G [id number] Self [id number] Today's Options Medicare Commercial [id number] Self [id number] TOD[place] OPT[place] [id number] [place] [id number] TODAYS OPTIONS -O/P [id number] 18 [id number] Problems, Conditions, and Diagnoses Code Display Name Description Problem Type Effective Dates Data Source(s) 64141099 Myasthenia gravis Myasthenia gravis Problem 04/04/2020 12:00:00 AM EST [facility] ([facility], ) [id number] Cough Cough Problem 04/04/2020 12:00:00 AM ES T [facility] ([facility], ) [id number] 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 08/11/2019 12:00:00 AM EDT [facility] ([facility], ) [id number] 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/2019 12:00:00 AM EDT [facility] ([facility], ) G70.00 Myasthenia gravis without (acute) exacer bation MYASTHENIA GRAVIS WITHOUT (ACUTE) EXACERBATION Diagnosis 06/28/2019 11:20:00 AM ED [facility] Surgeries/Procedures Procedure Description Date Indications Data Source(s) Venipuncture (routine) Venipuncture (routine) 09/23/2019 12:00:00 A M [facility] ([facility]) HgbA1C HgbA1C 09/23/2019 12:00:00 AM [facility] ([facility]) CREATININE OTHER SOURCE Creatinine: URINE 09/23/2019 12:00:00 AM ED [facility]) Mircro Alb urine Mircro Alb urine 09/23/2019 12:00:00 AM [facility]) CBC CBC 09/23/2019 12:00:00 AM [facility] ([facility]) CMP-Complete Metabolic Profile CMP-Complete Metabolic Profil e 09/23/2019 12:00:00 AM [facility]) Fasting Lipid Profile Fasting Lipid Profile 09/23/2019 12:00:00 AM [facility]) Urinalysis-Lab processed Urinalysis-Lab processed 09/23/2019 12:00: 00 AM [facility]) Annual wellness visit, includes a person alized prevention plan of service (pps), subsequent visit - subseq't annual wellness exam(1 yr after Initial) 09/23/2019 12:00:00 AM [facility]) Annual depression screening, 15 minutes -Annual depr ession screening- 15 min. (59) 09/23/2019 12:00:00 AM [facility] ([facility]) Venipuncture (routine) Venipuncture (routine) 03/21/2019 12:00:00 A M [facility]) CBC CBC 03/21/2019 12:00:00 AM [facility] ([facility]) CMP-Complete Metabolic Profile CMP-Complete Metabolic Profil e 03/21/2019 12:00:00 AM [facility]) HgbA1C HgbA1C 03/21/2019 12:00:00 AM [facility]) Results ID Date Data Source [id number] 04/11/2020 12:00:00 AM EST [facility] Name Value Range Interpretation Code Description Data Soumya rce(s) Supporting Document(s) SARS-CoV2 Rapid Antigen Positive [facility] This lab was ordered by [facility] and reported by [facility]. ID Date Data Source [id number] 04/04/2020 10:18:00 AM EST [facility] ([facility], ) Name Value Range Interpretation Code Description Data Soumya rce(s) Supporting Document(s) FVC-Pre 2.42 L [facility] ([facility], ) FVC-Pred 3.74 L [facility] ([facility]) PDFReport Laboratory test result [facility] ([facility]) FVC-LLN 2.86 L [facility] ([facility]) FVC-%Pred-Pre 64 L [facility] ([facility]) Fev1-Pred 2.66 L [facility] ([facility]) Fev1-%Pred-Pre 57 L [facility] ([facility]) Fev1-Pre 1.54 L [facility] ([facility]) Fev1-LLN 1.91 L [facility] ([facility]) Fev6-Pred 3.48 L [facility] ([facility]) Fev6-%Pred-Pre 69 L [facility] ([facility]) Fev6-Pre 2.42 L [facility] ([facility]) Gir6ovs-Lsp 64 % [facility] ([facility]) Diu2lsp-Ntsw 72 % [facility] ([facility]) Fev6-LLN 2.62 L [facility] ([facility]) Abn8niq-Umpk 93 % [facility] ([facility]) Zfx7zhn-MVO 62 % [facility] ([facility]) Rcj5eyw-%Pred-Pre 88 % [facility] ([facility]) Bva2uhw-Rlf 100 % [facility] ([facility]) Ofd6tyt-%Pred-Pre 107 % [facility] ([facility], ) FEFMax-Pred 6.91 L/E/sec [facility] ([facility]) FEFMax-%Pred-Pre 62 L/E/sec [facility] ([facility]) FEFMax-Pre 4.31 L/E/sec [facility] ([facility], ) Cqh8626-Mwg 0.79 L/E/sec [facility] ([facility]) Sxr5984-Dklg 1.84 L/E/sec [facility] ([facility]) FEFMax-LLN 4.72 L/E/sec [facility] ([facility]) Dxk7519-DGU 0.33 L/E/sec [facility] ([facility]) ExpTime-Pre 5.64 sec [facility] ([facility]) Iut8424-%Pred-Pre 43 L/E/sec [facility] ([facility]) Muf3zdr0-%Pred-Pre 83 % [facility] ([facility]) Xtu0avh4-Pxlh 76 % [facility] ([facility]) Bhg2lee1-Ioo 64 % [facility] ([facility]) Iaq8rwe3-QGZ 67 % [facility] ([facility]) ID Date Data Source [id number] 09/23/2019 09:37:00 AM EDT [place] ([facility]) Name Value Range Interpretation Code Description Data Soumya rce(s) Supporting Document(s) Hemoglobin A1c/Hemoglobin.total in Blood 6.7 na Above high normal Hgba1c [place] ([facility]) Note: Responsible Observer: KM ID Date Data Source [id number] 09/23/2019 09:37:00 AM EDT [place] ([facility]) Name Value Range Interpretation Code Description Data Soumya rce(s) Supporting Document(s) Color of Exudate from wound Yellow N/A COLOR [place] ([facility]) Note: Responsible Observer: KM Blood [Presence] in Urine by Visual Negative Fermin/uL BLOOD [place] ([facility]) Note: Responsible Observer: KM Clarity of Pleural fluid from Fetus Clear N/A CLARITY [place] ([facility]) Note: Responsible Observer: KM Ketones [Presence] in Blood by Tablet Negative N/A KETONES [place] ([facility]) Note: Responsible Observer: KM LEUK Negative Filemon/uL LEUK [place] ([facility]) Note: Responsible Observer: KM NITRITES Negative N/A NITRITES [place] ([facility]) Note: Responsible Observer: KM pH of Vaginal fluid by Test strip 6.0 N/A PH [place] ([facility]) Note: Responsible Observer: KM URINE GLUCOSE Negative mg/dL URINE GLUCOSE [place] ([facility]) Note: Responsible Observer: KM URINE BILI Negative N/A URINE BILI [facility] ([facility]) Note: Responsible Observer: KM Specific gravity of Pericardial fluid by Refractometry 1.010 N/A SPECIFIC GRAVITY [place] ([facility]) Note: Responsible Observer: KM URINE PROTEIN Negative mg/dL URINE PROTEIN [place] ([facility]) Note: Responsible Observer: KM Urobilinogen [Presence] in Urine by Automated test strip 0.2 EU/dL UROBILINOGEN [place] ([facility]) Note: Responsible Observer: KM ID Date Data Source [id number] 09/23/2019 09:37:00 AM EDT [place] ([facility]) Name Value Range Interpretation Code Description Data Soumya rce(s) Supporting Document(s) Cholesterol [Moles/volume] in Pericardial fluid 199 mg/dl Cholesterol [place] ([facility]) Note: Responsible Observer: KM Dir. LDL 156 mg/dl Above high normal Dir. LDL [facility] Note: Responsible Observer: KM Triglycerides 153 mg/dl Above high normal Triglycerides G [place] ([facility]) Note: Responsible Observer: KM HDL 38 mg/dl HDL [facility] ([facility]) Note: Responsible Observer: KM ID Date Data Source [id number] 09/23/2019 09:37:00 AM EDT [place] ([facility]) Name Value Range Interpretation Code Description Data Soumya rce(s) Supporting Document(s) Alkaline Phos 55 IU/L Alkaline Phos [facility] ([facility]) Note: Responsible Observer: KM Albumin [Mass/volume] in Blood by Bromocresol purple ( BCP) dye binding method 4.5 g/dl Albumin [facility] Note: Responsible Observer: KM AST 21 IU/L AST [facility] ([facility]) Note: Responsible Observer: KM ALT 25 IU/L ALT [place] [facility] [facility]) Note: Responsible Observer: KM Urea nitrogen [Moles/volume] in Blood 12 mg/dl Urea Nitrogen [place] ([facility]) Note: Responsible Observer: KM Chloride [Moles/volume] in Serum, Plasma or Blood 103 mmol/L Chloride [place] ([facility]) Note: Responsible Observer: KM Calcium [Moles/volume] in Urine collected for unspecified durati on 9.8 mg/dl Calcium [place] ([facility]) Note: Responsible Observer: KM EGFR - AfricanAm > 60 N/A EGFR - AfricanAm [facility] Note: Responsible Observer: KM Creatinine [Moles/volume] in Vitreous fluid 0.9 mg/dl Creatinine [place] ([facility]) Note: Responsible Observer: KM CO2 27 mmol/L CO2 [place] ([facility]) Note: Responsible Observer: KM EGFR - Non AF AM > 60 N/A EGFR - Non AF AM [facility] Note: Responsible Observer: KM Glucose [Mass/volume] in Urine collected for unspecified duratio n 136 mg/dl Above high normal Glucose [place] ([facility]) Note: Responsible Observer: KM Sodium [Moles/volume] in Serum, Plasma or Blood 138 mmol/L Sodium [place] ([facility]) Note: Responsible Observer: KM Potassium [Mass/volume] in Blood 4.4 mmol/L Pot assium [place] ([facility]) Note: Responsible Observer: KM Total Bilirubin 0.5 mg/dl Total Bil[facility]) Note: Responsible Observer: KM Total Protein 6 g/dl Total Protein [place] ([facility]) Note: Responsible Observer: KM ID Date Data Source [id number] 09/23/2019 09:37:00 AM EDT [place] ([facility]) Name Value Range Interpretation Code Description Data Soumya rce(s) Supporting Document(s) GRAN# 4.3 /mm3 GRAN# [place] ([facility]) Note: Responsible Observer: KM GRAN% 62.9 % GRAN% [place] ([facility]) Note: Responsible Observer: KM HCT 37.2 % Below low normal HCT [place] ([facility]) Note: Responsible Observer: KM HGB 12.9 g/dl HGB [place] ([facility]) Note: Responsible Observer: KM LY# 2.0 /mm3 LY# [place] ([facility]) Note: Responsible Observer: KM LY% 29.1 % LY% [place] ([facility]) Note: Responsible Observer: KM MCH 32.5 pg MCH [place] ([facility]) Note: Responsible Observer: KM MCHC 34.7 G/DL MCHC [place] ([facility]) Note: Responsible Observer: KM MID# 0.6 /mm3 MID# [place] ([facility]) Note: Responsible Observer: KM MCV 93.7 um3 MCV [place] ([facility]) Note: Responsible Observer: KM MID% 8.0 % Above high normal MID% [place] ([facility]) Note: Responsible Observer: KM MPV 9.7 um3 MPV [place] ([facility]) Note: Responsible Observer: KM RBC 3.97 /mm3 Below low normal RBC [place] ([facility]) Note: Responsible Observer: KM PLT 217 /mm3 PLT [place] ([facility]) Note: Responsible Observer: KM WBC 6.9 /mm3 WBC [place] ([facility]) Note: Responsible Observer: KM RDW 15.4 % Above high normal RDW [place] ([facility]) Note: Responsible Observer: KM ID Date Data Source [id number] 09/23/2019 09:37:00 AM EDT [place] ([facility]) Name Value Range Interpretation Code Description Data Soumya rce(s) Supporting Document(s) ACR - ug/mg ACR [facility] ([facility]) Note: Responsible Observer: KM Micro alb <5.0 mg/L Micro alb [facility] ([facility]) Note: Responsible Observer: KM Urine Creat 37.8 mg/dl Urine Creat [place] ([facility]) Note: Responsible Observer: KM ID Date Data Source [id number] 07/27/2019 02:09:00 PM EDT [facility] FAX RESULTS TO [phone] FAX RESULTS TO [phone] Name Value Range Interpretation Code Description Data Soumya rce(s) Supporting Document(s) Creatinine,Serum 0.8-1.5 Normal (applies to non-numeric results) [facility] GFR >60 Normal (applies to non-numeric results) [facility] ID Date Data Source [id number] 07/27/2019 02:09:00 PM EDT [facility] FAX RESULTS TO [phone] FAX RESULTS TO [phone] Name Value Range Interpretation Code Description Data Soumya rce(s) Supporting Document(s) BUN 13 mg/dL 7-18 Normal (applies to non-numeric results) [facility] ID Date Data Source [id number] 06/28/2019 01:07:00 PM EDT [facility] Name Value Range Interpretation Code Description Data Soumya rce(s) Supporting Document(s) Sodium 139 mmol/L 136-145 Normal (applies to non-numeric resul ts) [facility] Potassium 3.5-5.1 Normal (applies to non-numeric resul ts) [facility] Chloride 102 mmol/L 98-107 Normal (applies to non-numeric resul ts) [facility] Carbon Dioxide CO2 21-32 Normal (applies to non-numer ic results) [facility] Anion Gap 5.0-16.0 Normal (applies to non-numeric resul ts) [facility] BUN 13 mg/dL 7-18 Normal (applies to non-numeric results) [facility] Creatinine,Serum 0.8-1.5 Normal (applies to non-numeric results) [facility] GFR >60 Normal (applies to non-numeric results) [facility] Glucose Level 158 mg/dL 60-99 Above high normal [facility] Reference range is only applicable when patient is fasting Note the following drug interference: Sulfasalazine Sulfapyridine Can see falsely depressed Can see falsely elevated result with up to 17% results with up to 11% decrease in measurement increase in measurement Recommend patients be collected for this test prior to administration of either drug. Calcium 8.5-10.1 Below low normal [facility] Bilirubin,Total 0.1-1.9 Normal (applies to non-numeric results) [facility] SGOT(AST) 29 U/L 15-37 Normal (applies to non-numeric resul ts) [facility] Note the following drug interference: Sulfasalazine Sulfapyridine Can see falsely depressed Can see falsely elevated result with up to 10% results with up to 10% decrease in measurement increase in measurement Recommend patients be collected for this test prior to administration of either drug. SGPT(ALT) 37 U/L 12-78 Normal (applies to non-numeric resul ts) [facility] Note the following drug interference: Sulfasalazine Sulfapyridine Can see falsely depressed Can see falsely elevated result with up to 29% results with up to 10% decrease in measurement increase in measurement Recommend patients be collected for this test prior to administration of either drug. Alkaline Phosphatase 60 U/L 38-126 Normal (applies to non-num mahi results) [facility] can increase Alkaline Phosp le vels up to 2 times the normal adult value. Normal values for children and adolescents are 2 to 3 times the normal adult value. Total Protein 6.0-8.2 Normal (applies to non-numeric re sults) [facility] Albumin Level 3.4-5.0 Normal (applies to non-numeric re sults) [facility] ID Date Data Source [id number] 06/28/2019 11:37:00 AM EDT [facility] Name Value Range Interpretation Code Description Data Soumya rce(s) Supporting Document(s) White Blood Count 3.5-10.5 Normal (applies to non-numeri c results) [facility] Red Blood Count 4.30-5.70 Below low normal [facility] Hemoglobin 13.5-17.5 Below low normal [facility]ital Hematocrit 38.8-50.0 Below low normal [facility] Mean Corpuscular Volume 81.2-95.1 Normal (applies to non- numeric results) [facility] Mean Corpuscular Hgb 25.6-32.2 Normal (applies to non-num mahi results) [facility] Mean Corpuscular Hgb Conc 32.0-36.0 Normal (applies to no n-numeric results) [facility] Red Cell Distribution Width 11.8-15.6 Normal (appli es to non-numeric results) [facility] Platelet Count 239 x10 3/uL 150-450 Normal (applies to non-numeric results) [facility] Mean Platelet Volume 9.4-12.4 Normal (applies to non-num mahi results) [facility] Neutrophils% (Auto) 31.0-71.0 Normal (applies to non-nume katie results) [facility] Lymphocytes% (Auto) 20.0-55.0 Normal (applies to non-nume katie results) [facility] Monocytes% (Auto) 4.0-12.0 Normal (applies to non-numeri c results) [facility] Eosinophils% (Auto) 1.0-8.0 Normal (applies to non-nume katie results) [facility] Basophils% (Auto) 0.0-2.0 Normal (applies to non-numeri c results) [facility] Immature Granulocytes% (Auto) 0.0-2.0 Normal (asad lies to non-numeric results) [facility] Neutrophils# (Auto) 1.50-6.20 Normal (applies to non-nume katie results) [facility] Lymphocytes# (Auto) 1.20-4.00 Normal (applies to non-nume katie results) [facility] Monocytes# (Auto) 0.00-0.90 Normal (applies to non-numeri c results) [facility] Eosinophils# (Auto) 0.00-0.50 Normal (applies to non-nume katie results) [facility] Basophils# (Auto) 0.00-0.20 Normal (applies to non-numeri c results) [facility] Immature Granulocytes# (Auto) 0.00-7.00 No rmal (applies to non-numeric results) [facility] ID Date Data Source [id number] 03/22/2019 02:50:00 PM [facility] [address] [place] [address] [phone] NAME SEX PT STATUS ACCOUNT NUMBER EJ LAURENT REG REF [id number] ORDERING PHYSICIAN LOCATION MEDICAL RECORD NO. Ayden Renteria MD RAD [id number] ATTENDING PHYSICIAN DATE OF DATE OF EXAM/TIME [...] Trans Dt/Tm: Trans by: DT Prt Dt/Tm: [id number]: Total DLP = 0.00 mGy-cm Fluoroscopy Time (in secs): Name Value Range Interpretation Code Description Data Soumya rce(s) Supporting Document(s) ID Date Data Source [id number] 03/22/2019 07:06:00 AM [facility] Name Value Range Interpretation Code Description Data Soumya rce(s) Supporting Document(s) 25-Hydroxyvitamin D2+25-Hydroxyvitamin D3 [Mass/volume ] in Serum or Plasma 33.3 ng/mL 30.0-100.0 [facility] Vitamin D deficiency has been defined by the [place] [employer] and an Endocrine Society practice guideline as alevel of serum 25-OH vitamin D less than 20 ng/mL (1,2).The Endocrine Society went on to further define vitamin Dinsufficiency as a level between 21 and 29 ng/mL (2).1. IOM ([place] [employer]). 2010. Dietary reference intakes for calcium and D. [place]: The National Academies Press.2. Hany MF, Ivana NC, Cecilia BLANCO, et al. Evaluation, treatment, and prevention of vitamin D deficiency: an Endocrine Society clinical practice guideline. JCEM. 2010; 96(7):1911- 30.Performed at: RN - [facility] [place] [id number] Director: Lindy Amin MD, Phone: [phone] ID Date Data Source [id number] 03/21/2019 10:02:00 AM EST [place] ([facility]) Name Value Range Interpretation Code Description Data Soumya rce(s) Supporting Document(s) Hemoglobin A1c/Hemoglobin.total in Blood 6.3 na Above high normal Hgba1c [place] ([facility]) Note: Responsible Observer: KM ID Date Data Source [id number] 03/21/2019 10:02:00 AM EST [place] ([facility]) Name Value Range Interpretation Code Description Data Soumya rce(s) Supporting Document(s) Albumin [Mass/volume] in Blood by Bromocresol purple ( BCP) dye binding method 4.4 g/dl Albumin [place] ([facility]) Note: Responsible Observer: KM Alkaline Phos 74 IU/L Alkaline Phos [place] ([facility]) Note: Responsible Observer: KM Calcium [Moles/volume] in Urine collected for unspecified durati on 8.5 mg/dl Calcium [place] ([facility]) Note: Responsible Observer: KM AST 17 IU/L AST [place] ([facility]) Note: Responsible Observer: KM ALT 19 IU/L ALT [place] ([facility]) Note: Responsible Observer: KM Urea nitrogen [Moles/volume] in Blood 14 mg/dl Urea Nitrogen [place] ([facility]) Note: Responsible Observer: KM Chloride [Moles/volume] in Serum, Plasma or Blood 105 mmol/L Chloride [place] ([facility]) Note: Responsible Observer: KM CO2 26 mmol/L CO2 [place] ([facility]) Note: Responsible Observer: KM EGFR - AfricanAm > 60 N/A EGFR - AfricanAm [facility] Note: Responsible Observer: KM Creatinine [Moles/volume] in Vitreous fluid 0.9 mg/dl Creatinine [place] ([facility]) Note: Responsible Observer: KM Sodium [Moles/volume] in Serum, Plasma or Blood 138 mmol/L Sodium [place] ([facility]) Note: Responsible Observer: KM EGFR - Non AF AM > 60 N/A EGFR - Non AF AM [facility] Note: Responsible Observer: KM Glucose [Mass/volume] in Urine collected for unspecified duratio n 250 mg/dl Above high normal Glucose [place] ([facility]) Note: Responsible Observer: KM Potassium [Mass/volume] in Blood 4.2 mmol/L Pot assium [place] ([facility]) Note: Responsible Observer: KM Total Bilirubin 0.4 mg/dl Total Bilirubin [facility] ([facility]) Note: Responsible Observer: KM Total Protein 5.9 g/dl Below low normal Total Protein [facility] ([facility]) Note: Responsible Observer: KM ID Date Data Source [id number] 03/21/2019 10:02:00 AM EST [place] ([facility]) Name Value Range Interpretation Code Description Data Soumya rce(s) Supporting Document(s) GRAN% 69.9 % GRAN% [place] ([facility]) Note: Responsible Observer: KM GRAN# 4.2 /mm3 GRAN# [place] ([facility]) Note: Responsible Observer: KM LY# 1.4 /mm3 LY# [place] ([facility]) Note: Responsible Observer: KM HCT 36.6 % Below low normal HCT [place] ([facility]) Note: Responsible Observer: KM HGB 12.8 g/dl HGB [place] ([facility]) Note: Responsible Observer: KM MCH 31.8 pg MCH [place] ([facility]) Note: Responsible Observer: KM LY% 23.3 % Below low normal LY% [place] ([facility]) Note: Responsible Observer: KM MCHC 34.9 G/DL MCHC [place] ([facility]) Note: Responsible Observer: KM MID% 6.8 % MID% [place] ([facility]) Note: Responsible Observer: KM MID# 0.4 /mm3 MID# [place] ([facility]) Note: Responsible Observer: KM MCV 91.2 um3 MCV [place] ([facility]) Note: Responsible Observer: KM RBC 4.01 /mm3 RBC [place] ([facility]) Note: Responsible Observer: KM MPV 9.7 um3 MPV [place] ([facility]) Note: Responsible Observer: KM RDW 16.0 % Above high normal RDW [place] ([facility]) Note: Responsible Observer: KM PLT 211 /mm3 PLT [place] ([facility]) Note: Responsible Observer: KM WBC 6.0 /mm3 WBC [place] ([facility]) Note: Responsible Observer: KM ID Date Data Source [id number] 03/21/2019 10:02:00 AM EST [place] ([facility]) Name Value Range Interpretation Code Description Data Soumya rce(s) Supporting Document(s) Reported Physicians See Note Reported Physici ans [place] ([facility]) Note: Reported Physicians:Ordering: Atte nding: Laly Renteriaulting: Virginia Holman To: Ayden Renteria ID Date Data Source [id number] 03/21/2019 10:02:00 AM [facility] ([facility]) Name Value Range Interpretation Code Description Data Soumya rce(s) Supporting Document(s) 25-Hydroxyvitamin D2+25-Hydroxyvitamin D3 [Mass/volume ] in Serum or Plasma 33.3 NanoGramsPerMilliLiter_[Mass_Concentration_Units] 25(OH)D2+25(OH)D3 SerPl-nc [place] ([facility]) Note: Vitamin D deficiency has been defi elvie by the [place] of[place] and an Endocrine Society practice guideline as alevel of serum 25-OH vitamin D less than 20 ng/mL (1,2).The Endocrine Society went on to further define vitamin Dinsufficiency as a level between 21 and 29 ng/mL (2).1. IOM ([place] [employer]). 2010. Dietary reference intakes for calcium and D. [facility]: The National Academies Press.2. Hany MF, Ivana [place], Cecilia BLANCO, et al. Evaluation, treatment, and prevention of vitamin D deficiency: an Endocrine Society clinical practice guideline. JCEM. 2010; 96(8):1911- 30.Performed at: - [facility] [address] [id number] Director: Lindy Amin MD, Phone: [phone] Observer: Vitamin D 25-OH Vitamin D 25-Hydroxy [id number] [phone] ([facility]) Procedure Social History Code Duration Value Status Description Data Source(s ) Smoking 04/04/2020 12:00:00 AM EST Patient is a former smoker completed Patient is a former smoker [facility] ([facility]) Vital Signs ID Date Data Source UNK Name Value Range Interpretation Code Description Data Source(s) Body surface area Derived from formula 2.15 m2 2.15 m2 [facility] ([facility]) Body weight 102.514 kg 102.514 kg [facility] ([facility]) [place] body weight 154 [lb_av] 154 [lb_av] [facility] Body mass index (BMI) [Ratio] 34.4 kg/m2 34.4 k g/m2 [facility] ([facility]) Body weight 226.00 [lb_av] 226.00 [lb_av] [facility] Body height 68 [in_i] 68 [in_i] [facility] ([facility]) 5'8" Body temperature 98.4 [degF] 98.4 [degF] [facility] ([facility]) Oxygen saturation in Arterial blood by Pulse oximetry 93 % 93 % [facility] ([facility]) Heart rate 64 /min 64 /min [facility] ([facility]) Diastolic blood pressure 80 mm[Hg] 80 mm[Hg] [facility] ([facility]) Systolic blood pressure 130 mm[Hg] 130 mm[Hg] [facility] Respiratory rate 16 /min 16 /min [facility] ( [facility]) Heart rate 80 /min 80 /min [facility] ([facility]) Diastolic blood pressure 80 mm[Hg] 80 mm[Hg] [facility] ([facility]) Systolic blood pressure 130 mm[Hg] 130 mm[Hg] M [facility] ([facility] ) Body surface area Derived from formula 2.10 m2 2.10 m2 [place] ([facility]) Body mass index (BMI) [Ratio] 35.4 kg/m2 35.4 k g/m2 [place] ([facility]) Body weight 222.4 [lb_av] 222.4 [lb_av] [place] [facility] ([facility]) Body height 66.5 [in_i] 66.5 [in_i] [place] ([facility]) Respiratory rate 18 /min 18 /min [place] ([facility]) Heart rate 60 /min 60 /min [place] ([facility]) Diastolic blood pressure 70 mm[Hg] 70 mm[Hg] [place] ([facility]) Systolic blood pressure 134 mm[Hg] 134 mm[Hg] [facility] ([facility]) Body surface area Derived from formula 2.10 m2 2.10 m2 [place] ([facility]) Body mass index (BMI) [Ratio] 35.4 kg/m2 35.4 k g/m2 [place] ([facility]) Body weight 222.4 [lb_av] 222.4 [lb_av] [facility] ([facility]) Body height 66.5 [in_i] 66.5 [in_i] [place] ([facility]) Respiratory rate 18 /min 18 /min [place] ([facility]) Heart rate 60 /min 60 /min [place] ([facility]) Diastolic blood pressure 70 mm[Hg] 70 mm[Hg] [place] ([facility]) Systolic blood pressure 134 mm[Hg] 134 mm[Hg] [facility] ([facility]) Body surface area Derived from formula 2.10 m2 2.10 m2 [place] ([facility]) Body mass index (BMI) [Ratio] 35.3 kg/m2 35.3 k g/m2 [place] ([facility]) Body weight 222 [lb_av] 222 [lb_av] [place] ([facility]) Body height 66.5 [in_i] 66.5 [in_i] [place] ([facility]) Respiratory rate 18 /min 18 /min [place] ([facility]) Heart rate 60 /min 60 /min [place] ([facility]) Diastolic blood pressure 70 mm[Hg] 70 mm[Hg] [place] ([facility]) Systolic blood pressure 134 mm[Hg] 134 mm[Hg] [place] ([facility]) Body surface area Derived from formula 2.15 m2 2.15 m2 [facility] ([facility]) Body weight 102.514 kg 102.514 kg [facility] ([facility]) [place] body weight 154 [lb_av] 154 [lb_av] [facility] Body mass index (BMI) [Ratio] 34.4 kg/m2 34.4 k g/m2 [facility] ([facility]) Body weight 226.00 [lb_av] 226.00 [lb_av] [facility] Body height 68 [in_i] 68 [in_i] [facility] ([facility]) 5'8" Body temperature 97.1 [degF] 97.1 [degF] [facility] ([facility]) Oxygen saturation in Arterial blood by Pulse oximetry 98 % 98 % [facility] ([facility]) Heart rate 63 /min 63 /min [facility] ([facility]) Diastolic blood pressure 78 mm[Hg] 78 mm[Hg] [facility] ([facility]) Systolic blood pressure 118 mm[Hg] 118 mm[Hg] [facility] Body surface area Derived from formula 2.11 m2 2.11 m2 [place] ([facility]) Body mass index (BMI) [Ratio] 35.6 kg/m2 35.6 k g/m2 [place] ([facility]) Body weight 224 [lb_av] 224 [lb_av] [place] ([facility]) Body height 66.5 [in_i] 66.5 [in_i] [place] ([facility]) Body temperature 97.9 [degF] 97.9 [degF] [facility] ([facility]) Heart rate 65 /min 65 /min [place] ([facility]) Diastolic blood pressure 63 mm[Hg] 63 mm[Hg] [place] ([facility]) Systolic blood pressure 148 mm[Hg] 148 mm[Hg] [facility] Patient Treatment Plan of Care Planned Activity Planned Date Details Description Data Source (s) pantoprazole 40 MG Delayed Release Oral Tablet 09/23/2019 12:00:00 AM [facility] ([facility]) Terazosin 5 MG Oral Capsule 09/23/2019 12:00:00 AM [facility] ([facility]) Famotidine 40 MG Oral Tablet 06/09/2019 12:00:00 AM [facility] ([facility]) Ranitidine 300 MG Oral Tablet 06/06/2019 12:00:00 AM [facility] ([facility]) Atenolol 25 MG Oral Tablet 06/06/2019 12:00:00 AM [facility] ([facility]) valsartan 160 MG Oral Tablet 05/20/2019 12:00:00 AM [facility] ([facility]) Amoxicillin 500 MG / Clavulanate 125 MG Oral Tablet 03/21/19 12:00:00 AM [facility] Ranitidine 300 MG Oral Tablet 03/07/2019 12:00:00 AM [facility]) OneTouch Verio In Vitro Strip 03/07/2019 12:00:00 AM [facility]) irbesartan 150 MG Oral Tablet 02/17/2019 12:00:00 AM [facility] ([facility]) Cefuroxime 500 MG Oral Tablet 12/06/2018 12:00:00 AM [facility]) Prednisone 20 MG Oral Tablet 12/06/2018 12:00:00 AM [facility] ([facility]) Terazosin 5 MG Oral Capsule 09/21/2018 12:00:00 AM [facility] ([facility]) Atenolol 25 MG Oral Tablet 06/11/2018 12:00:00 AM [facility] ([facility])
[2020-04-18] MEDS ORDERED: GLIM1TAB4 PO (00:51)
[2020-04-18] MEDS ORDERED: ASPI-161 PO (00:51)
[2020-04-18] MEDS ORDERED: PANT40TA29 PO (00:51)
[2020-04-18] MEDS ORDERED: PRESCAP PO (00:51)
[2020-04-18] MEDS ORDERED: ATEN25TA PO (00:51)
[2020-04-18] MEDS ORDERED: ROPI1TAB3 PO (00:51)
[2020-04-18] MEDS ORDERED: VALS1TAB67 PO (00:51)
[2020-04-18] MEDS ORDERED: FAMO40TA3 PO (00:51)
[2020-04-18] MEDS ORDERED: VITA200038 PO (00:51)
[2020-04-18 01:19] LABS: RSV AMPLIFICATION NEGATIVE (NEGATIVE)
[2020-04-18 03:06] VITALS: BP 132/65; O2SAT 96
[2020-04-18] MEDS ORDERED: GLUCAGON INJ 1MG VIAL SC PRN (04:00)
[2020-04-18] MEDS ORDERED: DEXTROSE 50% 50 ML SYRINGE IV PRN (04:00)
[2020-04-18] MEDS ORDERED: methylPREDNISolone 125MG 2ML VIAL IV ONE (04:00)
[2020-04-18] MEDS ORDERED: GLUCOSE 4GM CHEW TABLET PO PRN (04:00)
[2020-04-18] MEDS ORDERED: LevoFLOXacin 500 MG TABLET PO ONE (04:53)
[2020-04-18] MEDS: TERAZOSIN 5 MG CAP PO SCH ×2 (05:27→20:54)
[2020-04-18] MEDS: rOPINIRole 1MG TAB PO SCH ×2 (05:28→20:54)
[2020-04-18] MEDS: NS 1,000 ML IV SCH ×2 (05:28→22:36)
[2020-04-18 06:57] LABS: HEMATOCRIT 35.6 % (42.0-52.0); HEMOGLOBIN 11.5 g/dl (13.5-17.5); MEAN CORPUSCULAR HEMOGLOBIN 29.4 pg (27.0-33.0); MEAN CORPUSCULAR HGB CONC 32.3 g/dl (32.0-36.5); PLATELET COUNT, AUTOMATED 182 10^3/uL (150-450); RED BLOOD COUNT 3.91 10^6/uL (4.30-6.10); WHITE BLOOD COUNT 5.5 10^3/uL (4.0-10.0)
[2020-04-18 07:18] LABS: CREATININE FOR GFR 1.25 MG/DL (0.70-1.30); GLOMERULAR FILTRATION RATE 59.3 (>42)
[2020-04-18 07:19] LABS: CALCIUM LEVEL 8.3 MG/DL (8.8-10.2)
[2020-04-18 07:37] LABS: HEMOGLOBIN A1c 7.3 %
--- NOTE | 2020-04-18 07:43 | ECGEPIP ---
[facility] - ED Test Date: 2020-04-17 Pat Name: EJ LAURENT Department: Room: - Gender: Male Program Architect: [email or web address] : 1940 Requested By: CHAPIN Verdugo Order Number: [id number] Reading MD: Chapin Cruz Measurements Intervals [place] Rate: 68 P: 37 AK: 160 QRS: 14 QRSD: 76 T: 25 QT: 372 QTc: 395 Interpretive Statements Normal sinus rhythm Baseline artifact Similar to tracing done 05-05-17 Electronically Signed on 04-18-2020 7:43:01 EST by Chapin Cruz
[2020-04-18] MEDS: BUDESONIDE 180MCG INHALER (PULMICORT FLEXHALER) INH SCH ×2 (08:00→19:23)
[2020-04-18 08:32] LABS: VITAMIN B12 LEVEL 197 PG/ML (247-911)
[2020-04-18 08:33] LABS: FOLATE 10.6 NG/ML (>5.4)
[2020-04-18] MEDS: PANTOPRAZOLE 40MG TAB (PROTONIX) PO SCH (08:39)
[2020-04-18] MEDS: ASPIRIN 81 MG CHEW TABLET PO SCH (08:39)
[2020-04-18] MEDS: OCUVITE 1 TAB PO SCH (08:39)
[2020-04-18] MEDS: HumaLOG INSULIN (NovoLOG) PER UNIT SC SCH ×3 (08:40→17:23)
[2020-04-18] MEDS: ENOXAPARIN 40MG/0.4ML SYRINGE (J1650 PER 10MG) SC SCH (08:40)
[2020-04-18 09:48] LABS: C REACTIVE PROTEIN QUANTITATIV 18.9 MG/DL (0.00-0.30)
[2020-04-18 12:22] VITALS: BP 120/56
[2020-04-18] MEDS: atenoloL 25 MG TAB PO SCH (12:52)
--- NOTE | 2020-04-18 14:21 | IPNPDOC ---
Text Note Date of Service The patient was seen on 04/18/20. NOTE Subjective: Patient is 79-year-old male who presented to the ER with SOB and hypoxia with ambulation. Patient was diagnosed with COVID19 on 04/11/20 and has received an infusion of monoclonal antibodies on 04/12. . She was admitted to the hospital service for further evaluation and treatment. Patient was seen and examined at the bedside. Currently patient denies any chest pain or palpitations. Does report a mild cough. Reports her short of breath has improved with supplemental oxygen. Has not experience any nausea, vomiting, abdominal pain, diarrhea, or discomfort with urination. Objective: Vitals (See below) General: Lying in bed, appears comfortable, AAOx3 HEENT: NC, AT CVS: +S1S2 Lungs: Fair air entry b/l, -w/r/r Abdomen: Soft, ND, NT Extremities: - Edema, - Calf tenderness Imaging: CXR 04/17: Bilateral subtle patchy opacities representing infiltrates. Assessment and plan: Acute hypoxic respiratory failure - likely 2/2 COVID-19 pneumonia; possibly secondary to underlying lung disease - Clinically patient has reported improvement of his breathing while on supplemental oxygen - Saturating well on nasal cannula 2 L - Inflammatory markers noted. 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 Veliz) and Oncology as scheduled Myasthenia gravis - c/w MTX - Folate noted; will supplement B12 Essential HTN - BP well controlled - Valsartan on hold - c/w Atenolol NIDDM2 - c/w ISS Normocytic Anemia - Hg stable Class 2 obesity - BMI of 94.0 - Complicating medical care RLS - c/w Ropinirole BPH - c/w Terazosin GERD - c/w Protonix DVT prophylaxis - c/w Lovenox Disposition: - Anticipate discharge within 24 hours - Call to discuss case with patient's Dayanna WRIGHT, I+O Dayanna WRIGHT I+O Laboratory Tests 04/17/20 21:18 04/18/20 06:35 Vital Signs Date Time Temp Pulse Resp B/P (MAP) Pulse Ox O2 Delivery O2 Flow Rate FiO2 04/18/20 12:52 59 120/56 04/18/20 04:05 2.0 04/18/20 03:06 96 Nasal Cannula 04/18/20 03:06 96.2 22 I&O- Last 24 Hours up to 6 AM 04/18/20 06:00 Intake Total 280 ml Balance 280 ml MARLEEN HERRERA MD Apr 18, 2020 14:21
[2020-04-18] MEDS ORDERED: guaiFENesin ER 600 MG TAB PO ONE (14:25)
--- NOTE | 2020-04-18 15:47 | REP ---
INDICATION: SHU vs CKD. COMPARISON: Limited evaluation of the upper poles of the kidneys on CT chest 07/26/2019 TECHNIQUE: Standard renal sonography without Doppler FINDINGS: The right kidney measured 13.6 x 5.5 x 5.5 cm. Cortical thickness and echogenicity were adequate. The junction of the interpolar lower pole region of there is a 1.6 x 1.4 cm simple cyst with good through transmission no internal echoes. Sinus lipomatosis is suggested. There is no solid mass, stone, hydronephrosis or hydroureter visible on these images. The left kidney measures 14.2 x 5.8 x 6.7 cm. Cortical thickness is still preserved. Some lobation is noted on both sides. Sinus lipomatosis is evident. There is no cyst, solid mass, stone or perinephric fluid. No hydronephrosis or hydroureter. Bladder partially filled. Ureteral jets were not seen. No bladder wall thickening on the limited images provided. IMPRESSION: 1. No evidence of renal atrophy with renal size, cortical thickness and echogenicity normal. There is some sinus lipomatosis and a simple cyst in the right kidney 1.6 x 1.4 cm. No stone or hydronephrosis. 2. Ureteral jets were not observed in the bladder which is partly filled and on limited images provided no gross abnormality seen . <Electronically signed by Shadi Christensen > 04/18/20 0427
[2020-04-18 16:00] VITALS: BP 145/69
[2020-04-18 16:47] LABS: CREATININE,RANDOM URINE 67.7 MG/DL; TOTAL PROTEIN,RANDOM URINE 28.7 MG/DL (0.0-12.0)
[2020-04-18 20:13] VITALS: BP 142/69
[2020-04-18] MEDS: guaiFENesin ER 600 MG TAB PO SCH (20:54)
[2020-04-18] MEDS ORDERED: HumaLOG INSULIN (NovoLOG) PER UNIT SC SCH (21:00)
[2020-04-18] MEDS ORDERED: guaiFENesin ER 600 MG TAB PO SCH (21:00)
[2020-04-19 04:43] VITALS: BP 150/68
[2020-04-19 08:00] VITALS: BP 129/63
[2020-04-19] MEDS: OCUVITE 1 TAB PO SCH (08:35)
[2020-04-19] MEDS: HumaLOG INSULIN (NovoLOG) PER UNIT SC SCH ×2 (08:35→12:00)
[2020-04-19] MEDS: PANTOPRAZOLE 40MG TAB (PROTONIX) PO SCH (08:35)
[2020-04-19] MEDS: ASPIRIN 81 MG CHEW TABLET PO SCH (08:35)
[2020-04-19 08:36] VITALS: BP 129/63
[2020-04-19] MEDS: atenoloL 25 MG TAB PO SCH (08:36)
[2020-04-19] MEDS: guaiFENesin ER 600 MG TAB PO SCH (08:36)
[2020-04-19] MEDS: ENOXAPARIN 40MG/0.4ML SYRINGE (J1650 PER 10MG) SC SCH (08:36)
[2020-04-19] MEDS ORDERED: predniSONE 20 MG TAB PO SCH (09:00)
[2020-04-19] MEDS ORDERED: CYANOCOBALAMIN 500 MCG TAB PO SCH (09:00)
[2020-04-19 09:24] LABS: HEMATOCRIT 34.6 % (42.0-52.0); HEMOGLOBIN 11.4 g/dl (13.5-17.5); MEAN CORPUSCULAR HEMOGLOBIN 29.8 pg (27.0-33.0); MEAN CORPUSCULAR HGB CONC 32.9 g/dl (32.0-36.5); MEAN CORPUSCULAR VOLUME 90.3 fl (80.0-96.0); PLATELET COUNT, AUTOMATED 216 10^3/uL (150-450); RED BLOOD COUNT 3.83 10^6/uL (4.30-6.10); WHITE BLOOD COUNT 12.7 10^3/uL (4.0-10.0)
[2020-04-19] MEDS ORDERED: MUCI600T31 PO (09:47)
[2020-04-19] MEDS ORDERED: PANT40TA29 PO (09:47)
[2020-04-19] MEDS ORDERED: PRED10TA2 PO (09:47)
[2020-04-19] MEDS ORDERED: LEVO500T3 PO (09:47)
[2020-04-19 09:56] LABS: BLOOD UREA NITROGEN 30 MG/DL (7-18); CALCIUM LEVEL 7.9 MG/DL (8.8-10.2); CARBON DIOXIDE LEVEL 23 MEQ/L (21-32); CHLORIDE LEVEL 105 MEQ/L (98-107); CREATININE FOR GFR 1.13 MG/DL (0.70-1.30); FERRITIN 1002 NG/ML (26-388); GLOMERULAR FILTRATION RATE > 60.0 (>42); GLUCOSE, FASTING 357 MG/DL (70-100); POTASSIUM SERUM 4.3 MEQ/L (3.5-5.1); SODIUM LEVEL 137 MEQ/L (136-145)
[2020-04-19] MEDS ORDERED: VITA500T40 PO (10:32)
--- NOTE | 2020-04-19 10:37 | DS.PDOC ---
Discharge Summary General Date of Admission Apr 17, 2020 at 23:23 Date of Discharge 04/19/2020 Discharge Summary PROCEDURES PERFORMED DURING STAY: [None]. ADMITTING DIAGNOSES / DISCHARGE DIAGNOSES: Acute hypoxic respiratory failure - likely 2/2 COVID-19 pneumonia; possibly 2/2 underlying lung disease s/p SHU Moderately differentiated left upper lobe adenocarcinoma Myasthenia gravis Essential HTN NIDDM2 Normocytic Anemia Class 2 obesity RLS BPH GERD DVT prophylaxis COMPLICATIONS/CHIEF COMPLAINT: Shortness of breath HISTORY OF PRESENT ILLNESS: Patient is 79-year-old male who presented to the ER with SOB and hypoxia with ambulation. Patient was diagnosed with COVID19 on 04/11/20 and has received an infusion of monoclonal antibodies on 04/12. . She was admitted to the hospital service for further evaluation and treatment. HOSPITAL COURSE: Acute hypoxic respiratory failure - likely 2/2 COVID-19 pneumonia; possibly 2/2 underlying lung disease - Clinically patient has reported improvement of his breathing while on supplemental oxygen - Saturating well on nasal cannula 2 L - has maintained on 2L; will provide on discharge - Inflammatory markers improving - COVID positive on 04/11; s/p Monoclonal antibodies on 04/12 - Imaging noted above - c/w Prednisone (Day #3) - will complete course as an outpatient - c/w Levofloxacin (Day #3) - will complete course as an outpatient - c/w incentive spirometry / acapella / Mucinex s/p SHU - Cr baseline of 1.-1.1; Cr has improved to baseline - Renal US 04/18: 1. No evidence of renal atrophy with renal size, cortical thickness and echogenicity normal. There is some sinus lipomatosis and a simple cyst in the right kidney 1.6 x 1.4 cm. No stone or hydronephrosis. 2. Ureteral jets were not observed in the bladder which is partly filled and on limited images provided no gross abnormality seen. 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 Veliz) and Oncology as scheduled Myasthenia gravis - c/w MTX - Folate noted; will supplement B12 - will continue on discharge Essential HTN - BP well controlled - Valsartan will remain on hold - will have outpatient follow up with PCP - c/w Atenolol NIDDM2 - c/w ISS Normocytic Anemia - Hg stable Class 2 obesity - BMI of 94.0 - Complicating medical care RLS - c/w Ropinirole BPH - c/w Terazosin GERD - c/w Protonix DVT prophylaxis - c/w Lovenox DISCHARGE MEDICATIONS: Please see below. ALLERGIES: Please see below. PHYSICAL EXAMINATION ON DISCHARGE: Vitals (See below) General: Sitting up in bed, appears to be comfortable, is awake, alert and oriented to person, place and time HEENT: NC, AT CVS: +S1S2 Lungs: Fair air entry b/l, no appreciable wheezing, rhonchi or rales Abdomen: Soft, nondistended and nontender Extremities: No evidence of edema, - Calf tenderness LABORATORY DATA: Please see below. IMAGING: CXR 04/17: Bilateral subtle patchy opacities representing infiltrates. ACTIVITY: [As tolerated]. DISCHARGE PLAN: Follow-up with primary care provider within the next 7 days Remain compliant with treatment plan and medications Return to the ER if you experience any problems DISPOSITION: Home with services DISCHARGE CONDITION: [Stable]. TIME SPENT ON DISCHARGE: 35 minutes. Vital Signs/I&Os Vital Signs Date Time Temp Pulse Resp B/P (MAP) Pulse Ox O2 Delivery O2 Flow Rate FiO2 04/19/20 08:36 129/63 04/19/20 08:00 97.6 67 19 93 Nasal Cannula 2.0 I&O- Last 24 Hours up to 6 AM 04/19/20 06:00 Intake Total 2210 ml Output Total 700 ml Balance 1510 ml Laboratory Data Labs 24H Laboratory Tests 2 04/18/20 11:35: Bedside Glucose (Misc Panel) 299H 04/18/20 15:50: Urine Random Osmolality 746, Urine Random Creatinine 67.7, Urine Random Total Protein 28.7H, Urine Random Sodium 29, Urine Random Potassium 41.0 04/18/20 16:53: Bedside Glucose (Misc Panel) 294H 04/18/20 20:12: Bedside Glucose (Misc Panel) 316H 04/19/20 06:33: Bedside Glucose (Misc Panel) 230H 04/19/20 09:11: Nucleated Red Blood Cells % (auto) 0.0 04/19/20 09:12: Anion Gap 9, Glomerular Filtration Rate > 60.0, Calcium Level 7.9L, Ferritin 10 02H, C-Reactive Protein, Quantitative 12.40H CBC/BMP Laboratory Tests 04/19/20 09:11 04/19/20 09:12 FSBS Laboratory Tests Test 04/18/20 11:35 04/18/20 16:53 04/18/20 20:12 04/19/20 06:33 Range/Units Bedside Glucose (Misc Panel) 299 294 316 230 83-110 MG/DL Microbiology Microbiology 04/17/20 Blood Culture - Preliminary, Resulted No growth after 24 hours . All specim... 04/17/20 Blood Culture - Preliminary, Resulted No growth after 24 hours . All specim... Discharge Medications Scheduled Aspirin (Aspirin EC) 81 Mg Tablet.dr, 81 MG PO DAILY, (Reported) Atenolol (Atenolol) 25 Mg Tablet, 25 MG PO DAILY, (Reported) Cholecalciferol (Vitamin D3) (Vitamin D3) 50 Mcg Tablet, 50 MCG PO DAILY, (Reported) Famotidine (Famotidine) 40 Mg Tablet, 40 MG PO DAILY, (Reported) Glimepiride (Glimepiride) 1 Mg Tablet, 1 MG PO DAILY, (Reported) Guaifenesin (Mucinex) 600 Mg Tab.er.12h, 600 MG PO BID Levofloxacin (Levofloxacin) 500 Mg Tablet, 500 MG PO Q48H Methotrexate Sodium (Methotrexate) 2.5 Mg Tab, 7.5 MG PO 1XWK, (Reported) Thursday Pantoprazole Sodium (Pantoprazole Sodium) 40 Mg Tablet.dr, 40 MG PO DAILY, (Reported) Pantoprazole Sodium (Pantoprazole Sodium) 40 Mg Tablet.dr, 40 MG PO DAILY Prednisone (Prednisone) 10 Mg Tablet, 10 MG PO TAPER Take 3 tabs daily x 3 days, then 2 tabs daily x 3 days, then 1 tab daily x 3 days and stop Ropinirole HCl (Ropinirole HCl) 1 Mg Tablet, 1 MG PO QHS, (Reported) Terazosin HCl (Terazosin HCl) 5 Mg Cap, 5 MG PO QHS, (Reported) Valsartan (Valsartan) 160 Mg Tablet, 160 MG PO QHS, (Reported) Vit A/Vit C/Vit E/Zinc/Copper (Preservision Areds Softgel) 1 Each Capsule, 1 CAP PO DAILY, (Reported) Allergies Coded Allergies: codeine (Verified Allergy, Severe, ANAPHYLAXIS, 04/12/20) MARLEEN HERRERA MD Apr 19, 2020 10:37
[2020-04-19] MEDS: NS 1,000 ML IV SCH (12:22)
[2020-04-20] MEDS ORDERED: LevoFLOXacin 500 MG TABLET PO SCH (06:00)
[2020-04-22] MEDS ORDERED: METHOTREXATE 2.5 MG TAB (J8610 PER 2.5MG) PO SCH (21:00)
== END 2020-04-19 12:40 | disposition home health service (06) | DRG 177 ==
LOC: M ED 20:18 → M ED INP 23:23 → ENRESERV 04-18 01:46 → M 4MAIN 04-18 02:55
PROVIDERS: ADMIT Internal Medicine; ATTEND Internal Medicine
DX: U07.1 COVID-19 (principal); J12.82 Pneumonia due to coronavirus disease 2019; J96.01 Acute respiratory failure with hypoxia; N17.9 Acute kidney failure, unspecified; Z85.118 Personal history of other malignant neoplasm of bronchus and lung; Z90.2 Acquired absence of lung [part of]; G70.00 Myasthenia gravis without (acute) exacerbation; I10 Essential (primary) hypertension; E11.9 Type 2 diabetes mellitus without complications; N40.0 Benign prostatic hyperplasia without lower urinary tract symptoms; G25.81 Restless legs syndrome; K21.9 Gastro-esophageal reflux disease without esophagitis; D64.9 Anemia, unspecified; E66.9 Obesity, unspecified; Z79.82 Long term (current) use of aspirin; Z79.84 Long term (current) use of oral hypoglycemic drugs; Z79.899 Other long term (current) drug therapy; Z88.5 Allergy status to narcotic agent; Z68.34 Body mass index [BMI] 34.0-34.9, adult

== ENCOUNTER → 2020-04-30 | Outpatient (CLI) | payer MEDICARE ==
[~2020-04-30] MED LIST changes: +ASPI-161 PO; +ATEN25TA PO; +FAMO40TA3 PO; +GLIM1TAB4 PO; +ISOVUE-370 76% 100ML VIAL As Ordered ONE; +LEVO500T3 PO; +MUCI600T31 PO; +PANT40TA29 PO; +PRED10TA2 PO; +PRESCAP PO; +ROPI1TAB3 PO; +VALS1TAB67 PO; +VITA200038 PO; +VITA500T40 PO
--- NOTE | 2020-04-30 11:25 | REP ---
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 This CT examination was performed using the following dose reduction techniques: Automated exposure control, adjustment of mA and/or kv according to the patient's size, and use of iterative reconstruction technique. FINDINGS: The lung watson again demonstrate chronic interstitial changes and scattered partially calcified pleural plaques similar to prior examination. There are diffuse new areas of airspace disease/consolidations throughout the bilateral lung watson suspicious for acute pneumonitis. Correlation is required. No effusion. No pneumothorax. Few mediastinal lymph nodes are likely reactive and measure up to approximately 15 mm. Further evaluation of the mediastinum demonstrates stable atherosclerotic changes to the thoracic aorta and coronary arteries without aortic aneurysm or cardiomegaly. Small amount of pericardial fluid is similar to prior examination. Small hiatal hernia identified at the gastroesophageal junction. Surrounding musculoskeletal structures demonstrate degenerative changes. Limited upper abdomen includes stable left adrenal adenoma. IMPRESSION: 1. Chronic pleuroparenchymal changes with significant bilateral superimposed areas of consolidation and opacity suspicious for acute multifocal pneumonitis. Correlation is required. <Electronically signed by Michele Kelly > 04/30/20 1124
== END ==
LOC: M RAD 10:14
PROVIDERS: ATTEND Internal Medicine Pulmonary Disease
DX: R91.8 Other nonspecific abnormal finding of lung field (principal); J62.0 Pneumoconiosis due to talc dust
CPT/HCPCS: 71260; Q9967

== ENCOUNTER → 2020-05-01 | Outpatient (REF) | payer OTHER, MEDICARE ==
[~2020-05-01] MED LIST changes: -ISOVUE-370 76% 100ML VIAL As Ordered ONE
[2020-05-01 17:46] LABS: BASO % 0.1 % (0.0-1.0); EOS # 0.2 10^3/uL (0.0-0.5); HEMOGLOBIN 11.3 g/dl (13.5-17.5); LYMPH # 0.6 10^3/uL (1.5-5.0); LYMPH % 7.4 % (24.0-44.0); MEAN CORPUSCULAR HEMOGLOBIN 29.4 pg (27.0-33.0); MEAN CORPUSCULAR HGB CONC 32.3 g/dl (32.0-36.5); MEAN CORPUSCULAR VOLUME 90.9 fl (80.0-96.0); MONO # 0.5 10^3/uL (0.0-0.8); MONO % 5.7 % (2.0-8.0); NEUTROPHILS # 7.1 10^3/uL (1.5-8.5); NEUTROPHILS % 84.1 % (36.0-66.0); PLATELET COUNT, AUTOMATED 203 10^3/uL (150-450); RED BLOOD COUNT 3.85 10^6/uL (4.30-6.10); WHITE BLOOD COUNT 8.4 10^3/uL (4.0-10.0)
[2020-05-01 18:12] LABS: ERYTHROCYTE SEDIMENTATION RATE 71 mm/hr (0-20)
== END ==
LOC: M LAB REF 16:55
PROVIDERS: ATTEND Internal Medicine Pulmonary Disease
DX: J62.0 Pneumoconiosis due to talc dust (principal)

== ENCOUNTER → 2020-06-11 | Outpatient (CLI) | payer OTHER ==
--- NOTE | 2020-06-11 08:24 | REP ---
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 This CT examination was performed using the following dose reduction techniques: Automated exposure control, adjustment of mA and/or kv according to the patient's size, and use of iterative reconstruction technique. FINDINGS: Scattered bilateral areas of reticulonodular interstitial and alveolar airspace disease on most recent prior examination have significantly improved and nearly resolved with residual areas of fibroatelectatic changes noted. Scattered chronic scarring and partially calcified pleural plaques remain essentially stable compared with multiple prior examinations. No new acute area of consolidation, pleural effusion, or pneumothorax noted. Mediastinum demonstrates stable atherosclerotic changes to the thoracic aorta and coronary arteries without aortic aneurysm, cardiomegaly or pericardial effusion. Small hiatal hernia is again identified along with mild chronic bronchiectasis. No significant adenopathy. Surrounding musculoskeletal structures demonstrate stable degenerative changes. IMPRESSION: 1. Improved aeration and decreased interstitial and alveolar opacities as compared with most recent prior examination. 2. Underlying chronic changes similar to multiple prior examinations. 3. No new acute process identified. <Electronically signed by Michele Kelly > 06/11/20 [id number]
== END ==
LOC: M RAD 06:56
PROVIDERS: ATTEND Internal Medicine Pulmonary Disease
DX: J62.0 Pneumoconiosis due to talc dust (principal)

== ENCOUNTER → 2020-11-05 | Outpatient (CLI) | payer OTHER ==
--- NOTE | 2020-11-06 10:28 | REP ---
INDICATION: MALIGNANT NEOPLASM OF UPPER LOBE, LEFT BRONCHUS OR LUNG COMPARISON: 04/17/2020 TECHNIQUE: PA and lateral. FINDINGS: Diffuse chronic changes suggesting elements of COPD/emphysematous disease and fibrosis noted bilaterally. Vague acute process cannot be excluded. No effusion. No pneumothorax. Mediastinum and cardiac silhouette are grossly stable. Skeletal structures demonstrate degenerative changes primarily involving thoracic spine and right shoulder. IMPRESSION: Essentially diffuse chronic appearing changes. <Electronically signed by Michele Kelly > 11/06/20 1024
== END ==
LOC: M RAD 11:18
PROVIDERS: ATTEND Internal Medicine Pulmonary Disease
DX: C34.12 Malignant neoplasm of upper lobe, left bronchus or lung (principal)

== ENCOUNTER → 2020-11-12 | Outpatient (CLI) | payer MEDICARE ==
--- NOTE | 2020-11-12 13:08 | REP ---
INDICATION: B/L HIP PAIN. COMPARISON: None. TECHNIQUE: AP and frogleg views of each hip are provided, four views total. FINDINGS: There are linear metallic prostate seeds visible in the mid pelvis. Femoral heads are smooth and rounded bilaterally. There is superior acetabular and inferior acetabular spurring bilaterally. This is mild. Joint spaces are preserved. There is tendon insertion site spurring on the right lesser trochanter and on the lesser and greater trochanter of the left side. No sclerotic or bony destructive lytic change seen. IMPRESSION: Mild bilateral hip osteoarthritis. Prostate seeds noted incidentally. Tendon insertion site spurring consistent with tendinitis. <Electronically signed by Herber Willoughby > 11/12/20 0649
== END ==
LOC: M RAD 12:15
PROVIDERS: ATTEND Physician Assistant Medical
DX: M16.0 Bilateral primary osteoarthritis of hip (principal)

== ENCOUNTER → 2021-05-13 | Outpatient (CLI) | payer MEDICARE, OTHER ==
[~2021-05-13] MED LIST changes: -LEVO500T3 PO; +LEVO500T4 PO
== END ==
LOC: M RAD 12:54
PROVIDERS: ATTEND Internal Medicine Pulmonary Disease
DX: J62.0 Pneumoconiosis due to talc dust (principal)

== ENCOUNTER → 2021-05-30 | Outpatient (CLI) | payer OTHER, MEDICARE | LOC: M CARPUL 13:37 | PROVIDERS: ATTEND Internal Medicine Pulmonary Disease | DX: R05.9 Cough, unspecified (principal) ==

== ENCOUNTER → 2021-06-17 | Outpatient (CLI) | payer OTHER | LOC: M PLAIMG 11:21 | PROVIDERS: ATTEND Internal Medicine Pulmonary Disease | DX: C34.12 Malignant neoplasm of upper lobe, left bronchus or lung (principal) ==

== ENCOUNTER → 2021-12-31 | Outpatient (CLI) | payer OTHER ==
[~2021-12-31] MED LIST changes: +LEVO1TAB39 PO; -LEVO500T4 PO
== END ==
LOC: M SOG 07:52
PROVIDERS: ATTEND Orthopaedic Surgery
DX: M19.031 Primary osteoarthritis, right wrist (principal); M19.032 Primary osteoarthritis, left wrist; M25.832 Other specified joint disorders, left wrist

== ENCOUNTER → 2022-08-14 | Outpatient (CLI) | payer OTHER, MEDICARE | LOC: M PLAIMG 09:57 | PROVIDERS: ATTEND Internal Medicine Pulmonary Disease | DX: C34.12 Malignant neoplasm of upper lobe, left bronchus or lung (principal); K44.9 Diaphragmatic hernia without obstruction or gangrene ==

== ENCOUNTER → 2023-03-31 | Outpatient (CLI) | payer MEDICARE, OTHER ==
[~2023-03-31] MED LIST changes: +IRBE150T27 PO; -IRBE150T7 PO; -ROPI1TAB3 PO; +ROPI1TAB73 PO
[2023-03-31 14:18] LABS: BASO % 0.5 % (0.0-1.0); EOS # 0.3 10^3/uL (0.0-0.5); EOS % 5.3 % (0.0-3.0); HEMATOCRIT 34.9 % (42.0-52.0); HEMOGLOBIN 11.4 g/dl (13.5-17.5); LYMPH # 1.1 10^3/uL (1.5-5.0); LYMPH % 17.7 % (24.0-44.0); MEAN CORPUSCULAR HEMOGLOBIN 30.1 pg (27.0-33.0); MEAN CORPUSCULAR HGB CONC 32.7 g/dl (32.0-36.5); MEAN CORPUSCULAR VOLUME 92.1 fl (80.0-96.0); MONO # 0.7 10^3/uL (0.0-0.8); MONO % 11.6 % (2.0-8.0); NEUTROPHILS # 4.1 10^3/uL (1.5-8.5); NEUTROPHILS % 64.6 % (36.0-66.0); PLATELET COUNT, AUTOMATED 240 10^3/uL (150-450); RED BLOOD COUNT 3.79 10^6/uL (4.30-6.10); WHITE BLOOD COUNT 6.4 10^3/uL (4.0-10.0)
[2023-03-31 14:20] LABS: ALBUMIN 3.3 G/DL (3.2-5.2); ALKALINE PHOSPHATASE 57 U/L (46-116); ALT/SGPT 30 U/L (7.0-40); AST/SGOT 26 U/L (<34); BILIRUBIN,TOTAL 0.4 MG/DL (0.3-1.2); BLOOD UREA NITROGEN 14 MG/DL (9-23); CALCIUM LEVEL 8.1 MG/DL (8.3-10.6); CARBON DIOXIDE LEVEL 28 MMOL/L (20-31); CHLORIDE LEVEL 109 MMOL/L (98-107); CREATININE FOR GFR 0.82 MG/DL (0.70-1.30); GLOMERULAR FILTRATION RATE > 60.0 (>35); GLUCOSE, FASTING 161 MG/DL (74-106); POTASSIUM SERUM 4.1 MMOL/L (3.5-5.1); SODIUM LEVEL 142 MMOL/L (136-145)
== END ==
LOC: M PLALAB 11:08
PROVIDERS: ATTEND Psychiatry & Neurology Neurology
DX: G70.00 Myasthenia gravis without (acute) exacerbation (principal)

== ENCOUNTER → 2023-08-14 | Outpatient (CLI) | payer OTHER ==
[~2023-08-14] MED LIST changes: -ASPI-161 PO; +ASPI-615 PO; -GLIM1TAB4 PO; +GLIM1TAB84 PO
== END ==
LOC: M PLAIMG 09:02
PROVIDERS: ATTEND Internal Medicine Pulmonary Disease
DX: C34.12 Malignant neoplasm of upper lobe, left bronchus or lung (principal); J94.8 Other specified pleural conditions; J43.9 Emphysema, unspecified

== ENCOUNTER → 2023-09-29 | Outpatient (CLI) | payer OTHER ==
[2023-09-29 15:47] LABS: ALBUMIN 3.6 G/DL (3.2-5.2); ALKALINE PHOSPHATASE 57 U/L (46-116); ALT/SGPT 31 U/L (7.0-40); AST/SGOT 25 U/L (<34); BILIRUBIN,TOTAL 0.4 MG/DL (0.3-1.2); BLOOD UREA NITROGEN 12 MG/DL (9-23); CALCIUM LEVEL 8.6 MG/DL (8.3-10.6); CARBON DIOXIDE LEVEL 29 MMOL/L (20-31); CHLORIDE LEVEL 104 MMOL/L (98-107); CREATININE FOR GFR 0.88 MG/DL (0.70-1.30); GLOMERULAR FILTRATION RATE > 60.0 (>35); GLUCOSE, FASTING 160 MG/DL (74-106); POTASSIUM SERUM 4.2 MMOL/L (3.5-5.1); SODIUM LEVEL 139 MMOL/L (136-145); TOTAL PROTEIN 6.5 G/DL (5.7-8.2)
[2023-09-29 16:04] LABS: BASO % 0.5 % (0.0-1.0); EOS # 0.3 10^3/uL (0.0-0.5); EOS % 4.6 % (0.0-3.0); HEMATOCRIT 33.3 % (42.0-52.0); HEMOGLOBIN 10.8 g/dl (13.5-17.5); LYMPH % 17.7 % (24.0-44.0); MEAN CORPUSCULAR HEMOGLOBIN 29.6 pg (27.0-33.0); MEAN CORPUSCULAR HGB CONC 32.4 g/dl (32.0-36.5); MEAN CORPUSCULAR VOLUME 91.2 fl (80.0-96.0); MONO # 0.6 10^3/uL (0.0-0.8); MONO % 10.5 % (2.0-8.0); NEUTROPHILS # 3.9 10^3/uL (1.5-8.5); NEUTROPHILS % 66.4 % (36.0-66.0); PLATELET COUNT, AUTOMATED 256 10^3/uL (150-450); RED BLOOD COUNT 3.65 10^6/uL (4.30-6.10); WHITE BLOOD COUNT 5.8 10^3/uL (4.0-10.0)
== END ==
LOC: M PLALAB 11:44
PROVIDERS: ATTEND Psychiatry & Neurology Neurology
DX: G70.00 Myasthenia gravis without (acute) exacerbation (principal)

== ENCOUNTER → 2024-09-13 | Outpatient (CLI) | payer OTHER, MEDICARE | LOC: M PLAIMG 11:10 | PROVIDERS: ATTEND Internal Medicine Pulmonary Disease | DX: C34.12 Malignant neoplasm of upper lobe, left bronchus or lung (principal); J47.9 Bronchiectasis, uncomplicated; J84.10 Pulmonary fibrosis, unspecified; J98.4 Other disorders of lung; J92.9 Pleural plaque without asbestos ==